=== PATIENT | female | born 1935 | race Caucasian/White ===

== ENCOUNTER 2016-11-17 18:35 | Emergency (ER) | payer MEDICARE, OTHER ==
--- NOTE | 2016-11-17 22:43 | ER Document Report ---
ED Fall - General Chief Complaint: Fall Stated Complaint: FALL,LEFT HIP AND RIGHT ELBOW PAIN Mode of Arrival: Wheelchair Information source: Patient, Relative Notes: Patient is an 81-year-old female who presents to the ER today post fall that happened prior to arrival while she was trying to put firewood in the fireplace. Patient is very independent and states that she just slipped and fell. She denies dizziness, lightheadedness, hitting her head, loss of consciousness. She is complaining of right elbow and left hip pain. She denies any numbness or tingling. She is on blood thinners. TRAVEL OUTSIDE OF THE [place] IN LAST 30 DAYS: No - Related data Allergies/Adverse Reactions: strawberry [[place]] Allergy (Unknown, Verified 07/03/16 01:57) Past Medical History - General Information source: Patient - Social History Smoking Status: Unknown if Ever Smoked Family History: Arthritis, CAD, CVA, DM, Hyperlipidemia, Hypertension, Malignancy - Past Medical History Cardiac Medical History: Reports: Hx Atrial Fibrillation, Hx Congestive Heart Failure, Hx Heart Attack, Hx Hypercholesterolemia, Hx Hypertension, Hx Pulmonary Embolism Denies: Hx Coronary Artery Disease Pulmonary Medical History: Denies: Hx Asthma, Hx Bronchitis, Hx COPD, Hx Pneumonia Neurological Medical History: Denies: Hx Cerebrovascular Accident, Hx Seizures Musculoskeltal Medical History: Reports Hx Arthritis, Reports Hx Musculoskeletal Deformity, Reports Hx Musculoskeletal Trauma Traumatic Medical History: Reports: Hx Fractures - left arm, right hip left tib fib Past Surgical History: Reports: Hx Cardiac Catheterization - stents, Hx Cardiac Surgery - defibillator/pacemaker, Hx Coronary Stent, Hx Hysterectomy, Hx Orthopedic Surgery - right hip left tib fib and left arm - Immunizations Hx Diphtheria, Pertussis, Tetanus Vaccination: No Hx Pneumococcal Vaccination: 05/15/11 Review of Systems - Review of Systems Constitutional: No symptoms reported EENT: No symptoms reported Cardiovascular: No symptoms reported Respiratory: No symptoms reported Gastrointestinal: No symptoms reported Genitourinary: No symptoms reported Female Genitourinary: No symptoms reported Musculoskeletal: See HPI Skin: No symptoms reported Hematologic/Lymphatic: No symptoms reported Neurological/Psychological: No symptoms reported Physical Exam - Notes Notes: PHYSICAL EXAMINATION: GENERAL: Well-appearing and in no acute distress. HEAD: Atraumatic, normocephalic. EYES: Pupils equal round and reactive to light, extraocular movements intact, sclera anicteric, conjunctiva are normal. NECK: Normal range of motion, supple without lymphadenopathy LUNGS: CTAB and equal. No wheezes rales or rhonchi. HEART: Regular rate and rhythm without murmurs ABDOMEN: Soft, no tenderness. No guarding, no rebound EXTREMITIES: Tender to right olecranon process, no tenderness to the left hip at all, Normal range of motion, no pitting edema. No cyanosis. NEUROLOGICAL: Cranial nerves grossly intact. Normal sensory/motor exams. PSYCH: Normal mood, normal affect. SKIN: Warm, Dry, normal turgor, ecchymosis noted to right dorsal elbow Course - Re-evaluation Re-evalutation: 11/17/16 22:42 X-rays of the left hip and right elbow negative for any acute pathology. Patient will be discharged home and would like to take her own pain medication when she gets home. Discharge - Discharge Clinical Impression: Left hip pain, Right elbow pain Fall from standing Qualifiers: Encounter type: initial encounter Qualified Code(s): W19.XXXA - Unspecified fall, initial encounter Condition: Stable Disposition: HOME, SELF-CARE Additional Instructions: Please use your walker for stability until you feel better. Return immediately for any new or worsening symptoms. Follow up with primary care provider, call tomorrow to make followup appointment.
[2016-11-17 23:03] VITALS: BP 135/62
== END 2016-11-17 22:58 | disposition home or self-care (01) ==
LOC: ER 18:35
DX: S50.01XA Contusion of right elbow, initial encounter (principal); M25.552 Pain in left hip; M25.521 Pain in right elbow; W01.0XXA Fall on same level from slipping, tripping and stumbling without subsequent striking against object, initial encounter; Y93.89 Activity, other specified; I48.91 Unspecified atrial fibrillation; I25.2 Old myocardial infarction; I10 Essential (primary) hypertension; Z86.711 Personal history of pulmonary embolism; Z79.01 Long term (current) use of anticoagulants; Z91.018 Allergy to other foods; Z95.810 Presence of automatic (implantable) cardiac defibrillator; Z98.61 Coronary angioplasty status
CPT/HCPCS: 99283

== ENCOUNTER 2016-12-08 16:41 | Observation (INO) | payer MEDICARE, OTHER ==
[2016-12-08] MEDS ORDERED: NORMAL SALINE 1000 ML 1,000 ML IV PRN (17:12)
[2016-12-08] MEDS ORDERED: INFLUENZA ADLT QUAD (36MOS+) 2016-17 VAC 0.5 ML SYR IM PRN (17:52)
[2016-12-08 18:09] LABS: HEMATOCRIT 36.7 % (36.0-47.0); HEMOGLOBIN 12.1 g/dL (12.0-15.5); HGB HCT DIFFERENCE -0.4; MEAN CORPUSCULAR HEMOGLOBIN 31.4 pg (27.0-33.4); MEAN CORPUSCULAR HGB CONC 32.9 g/dL (32.0-36.0); MEAN CORPUSCULAR VOLUME 95 fl (80-97); RED BLOOD COUNT 3.85 10^6/uL (3.72-5.28); WHITE BLOOD COUNT 4.2 10^3/uL (4.0-10.5)
[2016-12-08 18:29] LABS: ALANINE AMINOTRANSFERASE 25 U/L (9-52); ALBUMIN 3.6 g/dL (3.5-5.0); ALKALINE PHOSPHATASE 202 U/L (38-126); ANION GAP 11 (5-19); ASPARTATE AMINO TRANSFERASE 23 U/L (14-36); BILIRUBIN,TOTAL 0.6 mg/dL (0.2-1.3); BLOOD UREA NITROGEN 18 mg/dL (7-20); CARBON DIOXIDE 26 mmol/L (22-30); CHLORIDE 104 mmol/L (98-107); GLUCOSE 78 mg/dL (75-110); POTASSIUM 3.6 mmol/L (3.6-5.0); SODIUM 140.9 mmol/L (137-145); TOTAL PROTEIN 6.1 g/dL (6.3-8.2)
[2016-12-08] MEDS ORDERED: DONEPEZIL HCL 5 MG TABLET PO SCH (21:00)
[2016-12-08] MEDS ORDERED: (PENDING PHARMACY ID) (Rosuvastatin Calcium [Crestor 5 Mg Tablet] 5 MG) PO SCH (21:00)
[2016-12-08] MEDS ORDERED: POTASSIUM CHLORIDE 10 MEQ TABLET.SA PO SCH (21:00)
[2016-12-08] MEDS ORDERED: (PENDING PHARMACY ID) (Calcium Carb & Citrate/Vit D3 [Calcium + D3 Er Tablet] 1 EACH) PO SCH (21:00)
[2016-12-08] MEDS ORDERED: ACETAMINOPHEN 325 MG TABLET PO SCH (21:00)
[2016-12-08] MEDS ORDERED: (PENDING PHARMACY ID) (Ferrous Sulfate [Iron] 325 MG) PO SCH (21:00)
[2016-12-08] MEDS ORDERED: ISOSORBIDE MONONITRATE 30 MG TAB.ER.24H PO SCH (21:00)
[2016-12-08] MEDS ORDERED: DONEPEZIL HCL 5 MG TABLET PO ONE (22:00)
[2016-12-08] MEDS ORDERED: POTASSIUM CHLORIDE 10 MEQ TABLET.SA PO ONE (22:00)
[2016-12-08] MEDS ORDERED: CALCIUM CARBONATE 250 MG/VITAMIN D3 125 UNIT TABLET PO ONE (22:00)
[2016-12-08] MEDS ORDERED: ATORVASTATIN CALCIUM 10 MG TABLET PO ONE (22:00)
[2016-12-08] MEDS ORDERED: FERROUS SULFATE 325 MG TABLET PO ONE (22:00)
[2016-12-08] MEDS ORDERED: ISOSORBIDE MONONITRATE 30 MG TAB.ER.24H PO ONE (22:00)
[2016-12-08] MEDS ORDERED: LANSOPRAZOLE 15 MG TAB.RAP.DR PO ONE (22:00)
[2016-12-08] MEDS: ACETAMINOPHEN 325 MG TABLET PO SCH (23:02)
[2016-12-08] MEDS: ISOSORBIDE MONONITRATE 30 MG TAB.ER.24H PO SCH (23:03)
[2016-12-09] MEDS ORDERED: DONEPEZIL HCL 5 MG TABLET PO SCH (10:00)
[2016-12-09] MEDS ORDERED: POTASSIUM CHLORIDE 10 MEQ TABLET.SA PO SCH (10:00)
[2016-12-09] MEDS ORDERED: CALCIUM CARBONATE 250 MG/VITAMIN D3 125 UNIT TABLET PO SCH (10:00)
[2016-12-09] MEDS ORDERED: FERROUS SULFATE 325 MG TABLET PO SCH (10:00)
[2016-12-09] MEDS ORDERED: DIPHENHYDRAMINE HCL 50 MG/ML VIAL ONE (10:19)
[2016-12-09] MEDS ORDERED: NALOXONE HCL INJ/PF 0.4 MG/1 ML SDV ONE (10:19)
[2016-12-09] MEDS ORDERED: ONDANSETRON HCL INJ/PF 4 MG/2 ML SDV ONE (10:19)
[2016-12-09] MEDS ORDERED: PROMETHAZINE HCL INJ 25 MG/1 ML VIAL ONE (10:19)
[2016-12-09] MEDS ORDERED: MIDAZOLAM 2 MG/2 ML INJ ONE (10:20)
[2016-12-09] MEDS ORDERED: GLUCAGON,HUMAN RECOMB 1 MG INJ ONE (10:20)
[2016-12-09] MEDS ORDERED: FENTANYL CITRATE INJ/PF 100 MCG/2 ML AMPUL ONE (10:20)
[2016-12-09] MEDS ORDERED: FLUMAZENIL INJ 0.5 MG/5 ML VIAL IV ONE (10:20)
[2016-12-09] MEDS ORDERED: EPINEPHRINE INJ 1 MG/10 ML DISP.SYRIN ONE (10:20)
[2016-12-09] MEDS: MIDAZOLAM 2 MG/2 ML INJ ONE ×2 (11:16→11:25)
--- NOTE | 2016-12-09 11:33 | Operative Report ---
Operative Report DATE OF SURGERY: 12/09/16 Operative Report: The risks benefits and alternatives of the procedure explained to the patient in detail and informed consent is obtained that GIF Olympus video scope was inserted into the patient's mouth and hypopharynx the esophagus is identified intubated and insufflated the scope was then advanced through the esophagus stomach and duodenum retroflexion maneuver is done the esophagus stomach and first and second portions of the duodenum examined PREOPERATIVE DIAGNOSIS: Melena POSTOPERATIVE DIAGNOSIS: Gastric AVMs status post ablation OPERATION: EGD with ablation, control of hemorrhage SURGEON: TRU MANZANARES ANESTHESIA: Moderate Sedation - 4 mg of Versed TISSUE REMOVED OR ALTERED: None. COMPLICATIONS: None ESTIMATED BLOOD LOSS: none INTRAOPERATIVE FINDINGS: Minimal gastritis. Gastric AVMs that likely the cause of the patient's bleed. Normal esophagus. First and second portions of the duodenum normal PROCEDURE: Patient tolerated the procedure well. No immediate postprocedure complications are noted. Patient sent back to her room in good condition. Monitor H&H Start diet clears, advance as tolerated If stable can be discharged follow-up as outpatient Discuss with family
--- NOTE | 2016-12-09 11:55 | PDOC CONSULTATION ---
Consultation Consult Date: 12/08/16 Attending physician:: TRU MANZANARES Consult reason:: I was called to see patient because of complaints of having melena. not associated with pain. no syncope or chest pain History of Present Illness Admission Date/PCP: 12/08/16 16:41 JOÃO BRAGA, History of Present Illness: VERONA VALDEZ is a 81 year old female patient saw Dr Guerra in the office she had complaints of melena had a bowel movement that was photodocumented . denies any chest pain or shortness of breath patient denies any NSAID use there is no nausea or vomiting there is no bright red blood per rectum was admitted overnight, H/H is stable will need EGD to rule out source of bleeding Patient is currently on anticoagulation, this should be discontinued in light of GI bleeding Past Medical History Cardiac Medical History: Reports: Atrial Fibrillation, Congestive Heart Failure , Myocardial Infarction, Hyperlipidema, Hypertension, Pulmonary Embolism Denies: Coronary Artery Disease, Peripheral Vascular Disease, Heart Murmur Pulmonary Medical History: Denies: Asthma, Bronchitis, Chronic Obstructive Pulmonary Disease (COPD), Pneumonia, Tuberculosis Neurological Medical History: Denies: Seizures Renal/ Medical History: Denies: End Stage Renal Disease Musculoskeltal Medical History: Reports: Arthritis Denies: Fibromyalgia Psychiatric Medical History: Denies: Dementia, Depression Hematology: Denies: Anemia Past Surgical History Past Surgical History: Reports: Cardiac Catheterization - stents, Coronary Stent , Hysterectomy, Orthopedic Surgery - right hip left tib fib and left arm Denies: Amputation, Appendectomy, Section, Cholecystectomy, Coronary Artery Bypass Graft, Gastric Bypass Surgery, Herniorrhaphy, Mastectomy , Pacemaker, Tonsillectomy, Tubal Ligation Social History Smoking Status: Never Smoker Frequency of Alcohol Use: None Hx Recreational Drug Use: No Drugs: None Hx Prescription Drug Abuse: No - Advance Directive Resuscitation Status: Full Code Family History Family History: Arthritis, CAD, CVA, DM, Hyperlipidemia, Hypertension, Malignancy Parental Family History Reviewed: Yes Children Family History Reviewed: Unknown Sibling(s) Family History Reviewed.: Unknown Medication/Allergy Home Medications: Isosorbide Mononitrate [Imdur] 30 mg PO DAILY 12/25/11 Potassium Chloride [Klor-Con 10 Meq Tablet.sa] 10 meq PO DAILY 12/25/11 Acetaminophen [Tylenol 325 mg Tablet] 500 mg PO BID 09/23/13 Omeprazole 20 mg PO QPM 09/23/13 Donepezil HCl [Aricept 5 mg Tablet] 5 mg PO DAILY #90 tab 01/14/16 Apixaban [Eliquis 2.5 mg Tablet] 2.5 mg PO BID 01/23/16 Ferrous Sulfate [Iron] 325 mg PO DAILY 02/08/16 Nitroglycerin 0.4 mg SL Q5MP PRN 02/08/16 Metoprolol Succinate [Toprol Xl] 50 mg PO BID #60 02/09/16 Calcium Carb & Citrate/Vit D3 [Calcium + D3 ER Tablet] 1 each PO BID 07/03/16 Furosemide 40 mg PO DAILY 12/08/16 Rosuvastatin Calcium [Crestor 5 mg Tablet] 5 mg PO QPM 12/08/16 Allergies/Adverse Reactions: strawberry [[place]] Allergy (Unknown, Verified 07/03/16 01:57) Review of Systems Constitutional: ABSENT: fever(s), headache(s), night sweats Eyes: ABSENT: visual disturbances Ears: ABSENT: hearing changes Nose, Mouth, and Throat: ABSENT: mouth pain Respiratory: ABSENT: cough, dyspnea, hemoptysis Gastrointestinal: PRESENT: melena. ABSENT: dysphagia, hematemesis, nausea, vomiting Genitourinary: ABSENT: dysuria, hematuria Musculoskeletal: ABSENT: joint swelling Integumentary: ABSENT: lesions, pruritus Neurological: PRESENT: weakness. ABSENT: confusion, paresthesias, syncope, vertigo Endocrine: ABSENT: polydipsia, polyphagia, polyuria Hematologic/Lymphatic: ABSENT: easy bruising Physical Exam Vital Signs: Temp Pulse Resp BP Pulse Ox 97.8 F 60 11 L 186/60 H 96 12/09/16 09:19 12/09/16 11:05 12/09/16 11:05 12/09/16 11:05 12/09/16 11:05 Intake & Output 12/08/16 12/09/16 12/10/16 06:59 06:59 06:59 Intake Total 600 100 Output Total 100 Balance 500 100 Weight 43.7 kg General appearance: PRESENT: no acute distress Head exam: PRESENT: atraumatic, normocephalic Eye exam: PRESENT: EOMI, PERRLA. ABSENT: nystagmus, periorbital swelling, scleral icterus Mouth exam: PRESENT: moist Neck exam: ABSENT: meningismus, tenderness, thyromegaly Respiratory exam: PRESENT: clear to auscultation kit, symmetrical. ABSENT: tachypnea, wheezes Cardiovascular exam: PRESENT: RRR, +S1, +S2 GI/Abdominal exam: PRESENT: normal bowel sounds, soft. ABSENT: Slater's sign, rebound, rigid, tenderness Extremities exam: ABSENT: joint swelling Musculoskeletal exam: PRESENT: full ROM Neurological exam: PRESENT: oriented to time, oriented to situation, CN II-XII grossly intact Psychiatric exam: PRESENT: appropriate affect Skin exam: PRESENT: normal color. ABSENT: mottled, petechiae, urticaria, vesicles Results Laboratory Results: 12/08/16 18:00 12/08/16 18:00 12/08/16 12/08/16 18:00 18:00 WBC 4.2 RBC 3.85 Hgb 12.1 Hct 36.7 MCV 95 MCH 31.4 MCHC 32.9 RDW 13.0 Plt Count 149 L Sodium 140.9 Potassium 3.6 Chloride 104 Carbon Dioxide 26 Anion Gap 11 BUN 18 Creatinine 0.90 Est GFR ( Amer) > 60 Est GFR (Non-Af Amer) > 60 Glucose 78 Calcium 9.0 Total Bilirubin 0.6 AST 23 ALT 25 Alkaline Phosphatase 202 H Total Protein 6.1 L Albumin 3.6 Assessment & Plan - Diagnosis (1) GI bleed Plan: Will need EGD ? possible source will need to stop Apixaban for now due to GI bleeding check H/H transfuse as necessary Risks, benefits and alternatives are discussed with the patient in detail further recommendations to follow start PPI for now - Time Time Spent: 50 to 70 Minutes
[2016-12-09] MEDS: ISOSORBIDE MONONITRATE 30 MG TAB.ER.24H PO SCH (12:49)
[2016-12-09] MEDS: ACETAMINOPHEN 325 MG TABLET PO SCH (12:50)
--- NOTE | 2016-12-09 15:20 | PDOC H&P ---
History of Present Illness Admission Date/PCP: 12/08/16 16:41 RUBIORAMIRO ROCKNORMAANNMARIE, History of Present Illness: Patient 81-year-old female, she was brought to the office by her daughter because of passage of black tarry stool that suggest upper GI bleed, she was admitted directly from the office to the hospital for observation and management. The hemogram was normal, there was no need for blood transfusion. She was seen by Dr. Bhardwaj GI physician and she had EGD done and it showed gastric AVMs and this was ablated. The AVM is thought to be the source of the GI bleed. Past Medical History Cardiac Medical History: Reports: Atrial Fibrillation, Congestive Heart Failure , Myocardial Infarction, Hyperlipidema, Hypertension, Pulmonary Embolism Musculoskeltal Medical History: Reports: Arthritis Past Surgical History Past Surgical History: Reports: Cardiac Catheterization - stents, Coronary Stent , Hysterectomy, Orthopedic Surgery - right hip left tib fib and left arm Social History Information Source: Patient Smoking Status: Never Smoker Frequency of Alcohol Use: None Hx Recreational Drug Use: No Drugs: None Hx Prescription Drug Abuse: No - Advance Directive Resuscitation Status: Full Code Family History Family History: Arthritis, CAD, CVA, DM, Hyperlipidemia, Hypertension, Malignancy Parental Family History Reviewed: Yes Children Family History Reviewed: Yes Sibling(s) Family History Reviewed.: Yes Medication/Allergy Home Medications: RX: Isosorbide Mononitrate [Imdur] 30 mg PO DAILY 12/25/11 RX: Potassium Chloride [Klor-Con 10 Meq Tablet.sa] 10 meq PO DAILY 12/25/11 RX: Acetaminophen [Tylenol 325 mg Tablet] 500 mg PO BID 09/23/13 RX: Omeprazole 20 mg PO QPM 09/23/13 RX: Donepezil HCl [Aricept 5 mg Tablet] 5 mg PO DAILY #90 tab 01/14/16 RX: Apixaban [Eliquis 2.5 mg Tablet] 2.5 mg PO BID 01/23/16 RX: Ferrous Sulfate [Iron] 325 mg PO DAILY 02/08/16 RX: Nitroglycerin 0.4 mg SL Q5MP PRN 02/08/16 RX: Metoprolol Succinate [Toprol Xl] 50 mg PO BID #60 02/09/16 RX: Calcium Carb & Citrate/Vit D3 [Calcium + D3 ER Tablet] 1 each PO BID RX: Furosemide 40 mg PO DAILY 12/08/16 RX: Rosuvastatin Calcium [Crestor 5 mg Tablet] 5 mg PO QPM 12/08/16 Allergies/Adverse Reactions: strawberry [[place]] Allergy (Unknown, Verified 07/03/16 01:57) Review of Systems Constitutional: ABSENT: chills, fever(s), headache(s), weight gain, weight loss Eyes: ABSENT: visual disturbances Ears: ABSENT: hearing changes Cardiovascular: ABSENT: chest pain, dyspnea on exertion, edema, orthropnea, palpitations Respiratory: ABSENT: cough, hemoptysis Gastrointestinal: PRESENT: melena Genitourinary: ABSENT: dysuria, hematuria Musculoskeletal: ABSENT: joint swelling Integumentary: ABSENT: rash, wounds Neurological: ABSENT: abnormal gait, abnormal speech, confusion, dizziness, focal weakness, syncope Psychiatric: ABSENT: anxiety, depression, homidical ideation, suicidal ideation Endocrine: ABSENT: cold intolerance, heat intolerance, menstrual abnormalities, polydipsia, polyuria Hematologic/Lymphatic: ABSENT: easy bleeding, easy bruising, lymphadenopathy Physical Exam Vital Signs: Temp Pulse Resp BP Pulse Ox 98.0 F 60 16 148/64 H 96 12/09/16 14:39 12/09/16 14:39 12/09/16 14:39 12/09/16 14:39 12/09/16 14:39 Intake & Output 12/08/16 12/09/16 12/10/16 06:59 06:59 06:59 Intake Total 600 100 Output Total 100 Balance 500 100 Weight 43.7 kg General appearance: PRESENT: no acute distress Head exam: PRESENT: atraumatic, normocephalic Eye exam: PRESENT: conjunctiva pink, EOMI, PERRLA Ear exam: PRESENT: normal external ear exam Mouth exam: PRESENT: moist, tongue midline Neck exam: PRESENT: full ROM Respiratory exam: PRESENT: clear to auscultation kit Cardiovascular exam: PRESENT: RRR, +S1, +S2 Vascular exam: PRESENT: normal capillary refill GI/Abdominal exam: PRESENT: normal bowel sounds, soft Rectal exam: PRESENT: deferred Neurological exam: PRESENT: alert, awake, oriented to person, oriented to place , oriented to time, oriented to situation, CN II-XII grossly intact Psychiatric exam: PRESENT: appropriate affect, normal mood Skin exam: PRESENT: dry, intact, warm Results Laboratory Results: 12/08/16 18:00 12/08/16 18:00 12/08/16 12/08/16 18:00 18:00 WBC 4.2 RBC 3.85 Hgb 12.1 Hct 36.7 MCV 95 MCH 31.4 MCHC 32.9 RDW 13.0 Plt Count 149 L Sodium 140.9 Potassium 3.6 Chloride 104 Carbon Dioxide 26 Anion Gap 11 BUN 18 Creatinine 0.90 Est GFR ( Amer) > 60 Est GFR (Non-Af Amer) > 60 Glucose 78 Calcium 9.0 Total Bilirubin 0.6 AST 23 ALT 25 Alkaline Phosphatase 202 H Total Protein 6.1 L Albumin 3.6 Assessment & Plan - Diagnosis (1) Upper GI bleed Is this a current diagnosis for this admission?: YesPlan: Patient was admitted because of upper GI bleed. She did not required blood transfusion, she was seen by GI and she had EGD done, she was found to have gastric AVMs with hemorrhage and this was ablated. (2) AVM (arteriovenous malformation) of stomach, acquired with hemorrhage Is this a current diagnosis for this admission?: Yes
--- NOTE | 2016-12-09 15:22 | PDOC DISCHARGE SUMMARY ---
General - Admit/Disc Date/PCP Admission Date/Primary Care Provider: 12/08/16 16:41 JOÃO BRAGA, Discharge Date: 12/09/16 - Discharge Diagnosis (1) Upper GI bleed Is this a current diagnosis for this admission?: Yes (2) AVM (arteriovenous malformation) of stomach, acquired with hemorrhage Is this a current diagnosis for this admission?: Yes - Additional Information Resuscitation Status: Full Code Discharge Diet: As Tolerated Discharge Activity: Activity As Tolerated Home Medications: Isosorbide Mononitrate [Imdur] 30 mg PO DAILY 12/25/11 Potassium Chloride [Klor-Con 10 Meq Tablet.sa] 10 meq PO DAILY 12/25/11 Acetaminophen [Tylenol 325 mg Tablet] 500 mg PO BID 09/23/13 Omeprazole 20 mg PO QPM 09/23/13 Donepezil HCl [Aricept 5 mg Tablet] 5 mg PO DAILY #90 tab 01/14/16 Apixaban [Eliquis 2.5 mg Tablet] 2.5 mg PO BID 01/23/16 Ferrous Sulfate [Iron] 325 mg PO DAILY 02/08/16 Nitroglycerin 0.4 mg SL Q5MP PRN 02/08/16 Metoprolol Succinate [Toprol Xl] 50 mg PO BID #60 02/09/16 Calcium Carb & Citrate/Vit D3 [Calcium + D3 ER Tablet] 1 each PO BID 07/03/16 Furosemide 40 mg PO DAILY 12/08/16 Rosuvastatin Calcium [Crestor 5 mg Tablet] 5 mg PO QPM 12/08/16 History of Present Illness History of Present Illness: Patient 81-year-old female, she was brought to the office by her daughter because of passage of black tarry stool that suggest upper GI bleed, she was admitted directly from the office to the hospital for observation and management. The hemogram was normal, there was no need for blood transfusion. She was seen by Dr. Bhardwaj GI physician and she had EGD done and it showed gastric AVMs and this was ablated. The AVM is thought to be the source of the GI bleed. Hospital Course Hospital Course: Patient was admitted because of upper GI bleed, she presented with melanotic stool. She was seen by GI, Dr. Bhardwaj and she had he EGD done and it showed gastric AVM with hemorrhage. This was ablated. She did not require blood transfusion Physical Exam Vital Signs: Temp Pulse Resp BP Pulse Ox 98.0 F 60 16 148/64 H 96 12/09/16 14:39 12/09/16 14:39 12/09/16 14:39 12/09/16 14:39 12/09/16 14:39 Intake & Output 12/08/16 12/09/16 12/10/16 06:59 06:59 06:59 Intake Total 600 100 Output Total 100 Balance 500 100 Weight 43.7 kg General appearance: PRESENT: no acute distress, well-developed, well-nourished Head exam: PRESENT: atraumatic, normocephalic Eye exam: PRESENT: conjunctiva pink, EOMI, PERRLA Neck exam: PRESENT: full ROM Respiratory exam: PRESENT: clear to auscultation kit Cardiovascular exam: PRESENT: RRR, +S1, +S2 Pulses: PRESENT: normal dorsalis pedis pul, +2 pedal pulses bilateral Vascular exam: PRESENT: normal capillary refill GI/Abdominal exam: PRESENT: normal bowel sounds, soft Rectal exam: PRESENT: deferred Neurological exam: PRESENT: alert, awake, oriented to person, oriented to place , oriented to time, oriented to situation, CN II-XII grossly intact Psychiatric exam: PRESENT: appropriate affect, normal mood Skin exam: PRESENT: dry, intact, warm Results Laboratory Results: 12/08/16 18:00 12/08/16 18:00 12/08/16 12/08/16 18:00 18:00 WBC 4.2 RBC 3.85 Hgb 12.1 Hct 36.7 MCV 95 MCH 31.4 MCHC 32.9 RDW 13.0 Plt Count 149 L Sodium 140.9 Potassium 3.6 Chloride 104 Carbon Dioxide 26 Anion Gap 11 BUN 18 Creatinine 0.90 Est GFR ( Amer) > 60 Est GFR (Non-Af Amer) > 60 Glucose 78 Calcium 9.0 Total Bilirubin 0.6 AST 23 ALT 25 Alkaline Phosphatase 202 H Total Protein 6.1 L Albumin 3.6
[2016-12-09 16:16] VITALS: BP 130/49
[2016-12-09] MEDS ORDERED: ATORVASTATIN CALCIUM 10 MG TABLET PO SCH (18:00)
[2016-12-09] MEDS ORDERED: LANSOPRAZOLE 15 MG TAB.RAP.DR PO SCH (18:00)
== END 2016-12-09 16:45 | disposition home or self-care (01) ==
LOC: 4N 16:41 → INTOOBSV 16:41 → 4N 19:59
PROVIDERS: ADMIT Internal Medicine; ATTEND Internal Medicine
PROC: 3E0234Z Introduction of Serum, Toxoid and Vaccine into Muscle, Percutaneous Approach (ICD-10-PCS; 2016-12-09)
PROC: 0W3P8ZZ Control Bleeding in Gastrointestinal Tract, Via Natural or Artificial Opening Endoscopic (ICD-10-PCS; principal; 2016-12-09 10:30)
DX: Q27.33 Arteriovenous malformation of digestive system vessel (principal); K92.2 Gastrointestinal hemorrhage, unspecified; Z23 Encounter for immunization; I48.91 Unspecified atrial fibrillation; I50.9 Heart failure, unspecified; I25.2 Old myocardial infarction; E78.5 Hyperlipidemia, unspecified; I10 Essential (primary) hypertension; Z86.711 Personal history of pulmonary embolism; Z79.01 Long term (current) use of anticoagulants; Z95.5 Presence of coronary angioplasty implant and graft
CPT/HCPCS: 90471; 43255; 36415; 85027; 80076; 80048; 90686; G0378 ×2; G0379; A9270 ×9; J2250; J7030; J0171; J1200; J1610; J2310; J2405; J2550; J3010; J3490

== ENCOUNTER → 2016-12-30 | Outpatient (CLI) | payer MEDICARE, OTHER ==
[2016-12-30 11:11] LABS: ABSOLUTE BASOPHILS # (AUTO) 0.1 10^3/uL (0.0-0.2); ABSOLUTE EOSINOPHILS # (AUTO) 0.1 10^3/uL (0.0-0.6); ABSOLUTE LYMPHOCYTES (AUTO) 1.6 10^3/uL (0.5-4.7); ABSOLUTE MONOCYTES (AUTO) 0.3 10^3/uL (0.1-1.4); ABSOLUTE NEUT (AUTO) 1.9 10^3/uL (1.7-8.2); EOSINOPHILS % (AUTO) 2.9 % (0-6); HEMATOCRIT 37.3 % (36.0-47.0); HEMOGLOBIN 12.4 g/dL (12.0-15.5); HGB HCT DIFFERENCE -0.1; LYMPHOCYTES % (AUTO) 41.2 % (13-45); MEAN CORPUSCULAR HGB CONC 33.3 g/dL (32.0-36.0); MEAN CORPUSCULAR VOLUME 96 fl (80-97); MONOCYTES % (AUTO) 6.4 % (3-13); RED BLOOD COUNT 3.89 10^6/uL (3.72-5.28); RED CELL DISTRIBUTION WIDTH 13.3 % (11.5-14.0); SEGMENTED NEUTROPHILS % (AUTO) 47.5 % (42-78); WHITE BLOOD COUNT 3.9 10^3/uL (4.0-10.5)
== END ==
LOC: OD 09:36
PROVIDERS: ATTEND Internal Medicine
DX: K31.811 Angiodysplasia of stomach and duodenum with bleeding (principal)
CPT/HCPCS: 36415; 85025

== ENCOUNTER → 2017-02-03 | Outpatient (CLI) | payer MEDICARE, OTHER ==
[2017-02-03 11:43] LABS: ABSOLUTE EOSINOPHILS # (AUTO) 0.1 10^3/uL (0.0-0.6); ABSOLUTE LYMPHOCYTES (AUTO) 1.6 10^3/uL (0.5-4.7); ABSOLUTE MONOCYTES (AUTO) 0.3 10^3/uL (0.1-1.4); ABSOLUTE NEUT (AUTO) 2.6 10^3/uL (1.7-8.2); BASOPHILS % (AUTO) 1.1 % (0-2); EOSINOPHILS % (AUTO) 2.2 % (0-6); HEMATOCRIT 38.1 % (36.0-47.0); HGB HCT DIFFERENCE 0.9; LYMPHOCYTES % (AUTO) 34.8 % (13-45); MEAN CORPUSCULAR HEMOGLOBIN 32.6 pg (27.0-33.4); MEAN CORPUSCULAR HGB CONC 34.2 g/dL (32.0-36.0); MEAN CORPUSCULAR VOLUME 95 fl (80-97); MONOCYTES % (AUTO) 5.7 % (3-13); RED CELL DISTRIBUTION WIDTH 12.8 % (11.5-14.0); SEGMENTED NEUTROPHILS % (AUTO) 56.2 % (42-78); WHITE BLOOD COUNT 4.5 10^3/uL (4.0-10.5)
[2017-02-03 12:24] LABS: RED BLOOD COUNT 3.99 10^6/uL (3.72-5.28)
== END ==
LOC: OD 10:51
PROVIDERS: ATTEND Internal Medicine
DX: K31.811 Angiodysplasia of stomach and duodenum with bleeding (principal)
CPT/HCPCS: 36415; 85025

== ENCOUNTER → 2017-03-02 | Outpatient (CLI) | payer MEDICARE, OTHER ==
[2017-03-03 10:39] LABS: ABSOLUTE EOSINOPHILS # (AUTO) 0.1 10^3/uL (0.0-0.6); ABSOLUTE LYMPHOCYTES (AUTO) 1.6 10^3/uL (0.5-4.7); ABSOLUTE MONOCYTES (AUTO) 0.3 10^3/uL (0.1-1.4); ABSOLUTE NEUT (AUTO) 2.1 10^3/uL (1.7-8.2); BASOPHILS % (AUTO) 0.3 % (0-2); EOSINOPHILS % (AUTO) 1.8 % (0-6); HEMATOCRIT 37.8 % (36.0-47.0); HEMOGLOBIN 12.9 g/dL (12.0-15.5); HGB HCT DIFFERENCE 0.9; LYMPHOCYTES % (AUTO) 39.7 % (13-45); MEAN CORPUSCULAR HEMOGLOBIN 32.5 pg (27.0-33.4); MEAN CORPUSCULAR HGB CONC 34.2 g/dL (32.0-36.0); MEAN CORPUSCULAR VOLUME 95 fl (80-97); RED BLOOD COUNT 3.98 10^6/uL (3.72-5.28); RED CELL DISTRIBUTION WIDTH 12.7 % (11.5-14.0); SEGMENTED NEUTROPHILS % (AUTO) 51.2 % (42-78); WHITE BLOOD COUNT 4.2 10^3/uL (4.0-10.5)
[2017-03-03 11:23] LABS: PLATELET ESTIMATE 109 10^3/uL (150-450)
[2017-03-03 11:24] LABS: OVALOCYTES 1+; POIKILOCYTOSIS 1+
[2017-03-03 11:25] LABS: POLYCHROMASIA SLIGHT; SCHISTOCYTES SLIGHT
== END ==
LOC: OD 09:36
PROVIDERS: ATTEND Internal Medicine
DX: K31.811 Angiodysplasia of stomach and duodenum with bleeding (principal)
CPT/HCPCS: 36415; 85025

== ENCOUNTER → 2017-03-30 | Outpatient (CLI) | payer MEDICARE, OTHER ==
[2017-03-30 10:53] LABS: ABSOLUTE BASOPHILS # (AUTO) 0.1 10^3/uL (0.0-0.2); ABSOLUTE EOSINOPHILS # (AUTO) 0.1 10^3/uL (0.0-0.6); ABSOLUTE LYMPHOCYTES (AUTO) 1.6 10^3/uL (0.5-4.7); ABSOLUTE MONOCYTES (AUTO) 0.3 10^3/uL (0.1-1.4); ABSOLUTE NEUT (AUTO) 2.8 10^3/uL (1.7-8.2); BASOPHILS % (AUTO) 1.4 % (0-2); EOSINOPHILS % (AUTO) 1.8 % (0-6); HEMOGLOBIN 12.5 g/dL (12.0-15.5); HGB HCT DIFFERENCE -0.5; LYMPHOCYTES % (AUTO) 33.6 % (13-45); MEAN CORPUSCULAR HEMOGLOBIN 31.6 pg (27.0-33.4); MEAN CORPUSCULAR HGB CONC 32.9 g/dL (32.0-36.0); MEAN CORPUSCULAR VOLUME 96 fl (80-97); RED BLOOD COUNT 3.96 10^6/uL (3.72-5.28); RED CELL DISTRIBUTION WIDTH 13.3 % (11.5-14.0); SEGMENTED NEUTROPHILS % (AUTO) 57.2 % (42-78); WHITE BLOOD COUNT 4.8 10^3/uL (4.0-10.5)
== END ==
LOC: OD 10:03
PROVIDERS: ATTEND Internal Medicine
DX: K31.811 Angiodysplasia of stomach and duodenum with bleeding (principal)
CPT/HCPCS: 36415; 85025

== ENCOUNTER → 2017-04-27 | Outpatient (CLI) | payer MEDICARE, OTHER ==
[2017-04-27 12:25] LABS: ABSOLUTE EOSINOPHILS # (AUTO) 0.1 10^3/uL (0.0-0.6); ABSOLUTE MONOCYTES (AUTO) 0.3 10^3/uL (0.1-1.4); ABSOLUTE NEUT (AUTO) 3.1 10^3/uL (1.7-8.2); BASOPHILS % (AUTO) 0.8 % (0-2); EOSINOPHILS % (AUTO) 1.6 % (0-6); HEMATOCRIT 42.4 % (36.0-47.0); HEMOGLOBIN 13.6 g/dL (12.0-15.5); HGB HCT DIFFERENCE -1.6; LYMPHOCYTES % (AUTO) 35.9 % (13-45); MEAN CORPUSCULAR HEMOGLOBIN 31.3 pg (27.0-33.4); MEAN CORPUSCULAR HGB CONC 32.1 g/dL (32.0-36.0); MEAN CORPUSCULAR VOLUME 98 fl (80-97); RED BLOOD COUNT 4.35 10^6/uL (3.72-5.28); RED CELL DISTRIBUTION WIDTH 13.1 % (11.5-14.0); SEGMENTED NEUTROPHILS % (AUTO) 55.7 % (42-78); WHITE BLOOD COUNT 5.5 10^3/uL (4.0-10.5)
== END ==
LOC: OD 11:25
PROVIDERS: ATTEND Internal Medicine
DX: K31.811 Angiodysplasia of stomach and duodenum with bleeding (principal)
CPT/HCPCS: 36415; 85025

== ENCOUNTER → 2017-07-06 | Outpatient (CLI) | payer MEDICARE, OTHER ==
[2017-07-06 10:08] LABS: ABSOLUTE EOSINOPHILS # (AUTO) 0.1 10^3/uL (0.0-0.6); ABSOLUTE LYMPHOCYTES (AUTO) 1.8 10^3/uL (0.5-4.7); ABSOLUTE MONOCYTES (AUTO) 0.4 10^3/uL (0.1-1.4); ABSOLUTE NEUT (AUTO) 2.2 10^3/uL (1.7-8.2); BASOPHILS % (AUTO) 0.1 % (0-2); EOSINOPHILS % (AUTO) 3.3 % (0-6); HEMATOCRIT 35.7 % (36.0-47.0); HGB HCT DIFFERENCE 0.3; LYMPHOCYTES % (AUTO) 39.4 % (13-45); MEAN CORPUSCULAR HEMOGLOBIN 32.2 pg (27.0-33.4); MEAN CORPUSCULAR HGB CONC 33.5 g/dL (32.0-36.0); MEAN CORPUSCULAR VOLUME 96 fl (80-97); RED BLOOD COUNT 3.71 10^6/uL (3.72-5.28); RED CELL DISTRIBUTION WIDTH 13.3 % (11.5-14.0); SEGMENTED NEUTROPHILS % (AUTO) 49.2 % (42-78); WHITE BLOOD COUNT 4.5 10^3/uL (4.0-10.5)
== END ==
LOC: OD 09:18
PROVIDERS: ATTEND Internal Medicine
DX: K31.811 Angiodysplasia of stomach and duodenum with bleeding (principal)
CPT/HCPCS: 36415; 85025

== ENCOUNTER 2017-08-13 12:47 | Emergency (ER) | payer MEDICARE, OTHER ==
--- NOTE | 2017-08-13 13:46 | RADIOLOGY REPORT (SQ) ---
EXAM DESCRIPTION: CHEST PA/LAT COMPLETED DATE/TIME: 08/13/2017 1:27 pm REASON FOR STUDY: post heimleich COMPARISON: June 2016 EXAM PARAMETERS: NUMBER OF VIEWS: two views TECHNIQUE: Digital Frontal and Lateral radiographic views of the chest acquired. RADIATION DOSE: NA LIMITATIONS: none FINDINGS: LUNGS AND PLEURA: No opacities, masses or pneumothorax. No pleural effusion. MEDIASTINUM AND HILAR STRUCTURES: No masses or contour abnormalities. HEART AND VASCULAR STRUCTURES: Cardiac silhouette is enlarged and unchanged in configuration. BONES: No acute findings. HARDWARE: AICD device is unchanged in position. OTHER: No other significant finding. IMPRESSION: No significant interval change. No acute findings. Other findings as noted above TECHNICAL DOCUMENTATION: JOB ID: [id number] [employer]- All Rights Reserved
--- NOTE | 2017-08-13 13:48 | RADIOLOGY REPORT (SQ) ---
EXAM DESCRIPTION: ANKLE LEFT COMPLETE COMPLETED DATE/TIME: 08/13/2017 1:27 pm REASON FOR STUDY: ankle injury COMPARISON: May 2013 NUMBER OF VIEWS: Three views. TECHNIQUE: AP, lateral, and oblique radiographic images acquired of the left ankle. LIMITATIONS: Bony structures are diffusely osteopenic which limits evaluation for occult fractures. FINDINGS: MINERALIZATION: Osteopenia BONES: No acute fracture or dislocation. An old healed fracture of the distal fibula is identified. JOINTS: No effusions. SOFT TISSUES: Soft tissue swelling is identified. OTHER: Orthopedic hardware is identified with an orthopedic plate transfixed by multiple orthopedic s crews at the level of the distal tibia. IMPRESSION: Limited study as noted above. No acute fracture or dislocation. Other findings as note d above TECHNICAL DOCUMENTATION: JOB ID: [id number] [employer]- All Rights Reserved
--- NOTE | 2017-08-13 13:55 | ER Document Report ---
ED General - General Chief Complaint: Choked / Choking Stated Complaint: CHOKING Time Seen by Provider: 08/13/17 13:00 Mode of Arrival: Ambulatory Information source: Patient, Relative Notes: 81 yr old female was at [facility] when she began choking. Pt had heimleich performed. Imemdiately food came up and patient felt better pt was also supposed to be seen for xray of the left ankle outpatient for previous sprain TRAVEL OUTSIDE OF THE [place] IN LAST 30 DAYS: No - HPI Onset: Just prior to arrival Onset/Duration: Sudden Quality of pain: Achy Severity: Mild Pain Level: 1 Associated symptoms: Other Exacerbated by: Food Relieved by: Denies Similar symptoms previously: No Recently seen / treated by doctor: Yes - was seen at [facility] - Related Data Allergies/Adverse Reactions: strawberry [[place]] Allergy (Unknown, Verified 07/03/16 01:57) Past Medical History - Social History Smoking Status: Former Smoker Cigarette use (# per day): No Chew tobacco use (# tins/day): No Smoking Education Provided: No Frequency of alcohol use: None Drug Abuse: None Family History: Arthritis, CAD, CVA, DM, Hyperlipidemia, Hypertension, Malignancy - Past Medical History Cardiac Medical History: Reports: Hx Atrial Fibrillation, Hx Congestive Heart Failure, Hx Heart Attack, Hx Hypercholesterolemia, Hx Hypertension, Hx Pulmonary Embolism Denies: Hx Coronary Artery Disease, Hx Peripheral Vascular Disease, Hx Heart Murmur Pulmonary Medical History: Denies: Hx Asthma, Hx Bronchitis, Hx COPD, Hx Pneumonia, Hx Tuberculosis Neurological Medical History: Denies: Hx Cerebrovascular Accident, Hx Seizures Renal/ Medical History: Denies: Hx End Stage Renal Disease Musculoskeltal Medical History: Reports Hx Arthritis, Denies Hx Fibromyalgia, Reports Hx Musculoskeletal Deformity, Reports Hx Musculoskeletal Trauma Psychiatric Medical History: Denies: Hx Dementia, Hx Depression Traumatic Medical History: Reports: Hx Fractures - left arm, right hip left tib fib Past Surgical History: Reports: Hx Cardiac Catheterization - stents, Hx Cardiac Surgery - defibillator/pacemaker, Hx Coronary Stent, Hx Hysterectomy, Hx Orthopedic Surgery - right hip left tib fib and left arm. Denies: Hx Appendectomy, Hx Section, Hx Cholecystectomy, Hx Coronary Artery Bypass Graft, Hx Gastric Bypass Surgery, Hx Herniorrhaphy, Hx Mastectomy, Hx Pacemaker, Hx Tonsillectomy, Hx Tubal Ligation - Immunizations Hx Diphtheria, Pertussis, Tetanus Vaccination: No Hx Pneumococcal Vaccination: 05/15/11 Review of Systems - Review of Systems Notes: REVIEW OF SYSTEMS: CONSTITUTIONAL : Denies fever, chills, or sweats. Denies recent illness. EENT: aspiration CARDIOVASCULAR: Denies chest pain. Denies palpitations or racing or irregular heart beat. Denies ankle edema. RESPIRATORY: Denies cough, cold, or chest congestion. Denies shortness of breath, difficulty breathing, or wheezing. GASTROINTESTINAL: Denies abdominal pain or distention. Denies nausea, vomiting , or diarrhea. Denies blood in vomitus, stools, or per rectum. Denies black, tarry stools. Denies constipation. GENITOURINARY: Denies difficulty urinating, painful urination, burning, frequency, blood in urine, or discharge. FEMALE GENITOURINARY: Denies vaginal bleeding, heavy or abnormal periods, irregular periods. Denies vaginal discharge or odor. MUSCULOSKELETAL: left nakle pain SKIN: Denies rash, lesions or sores. HEMATOLOGIC : Denies easy bruising or bleeding. LYMPHATIC: Denies swollen, enlarged glands. NEUROLOGICAL: Denies confusion or altered mental status. Denies passing out or loss of consciousness. Denies dizziness or lightheadedness. Denies headache. Denies weakness or paralysis or loss of use of either side. Denies problems with gait or speech. Denies sensory loss, numbness, or tingling. Denies seizures. PSYCHIATRIC: Denies anxiety or stress. Denies depression, suicidal ideation, or homicidal ideation. ALL OTHER SYSTEMS REVIEWED AND NEGATIVE. PHYSICAL EXAMINATION: GENERAL: Well-appearing, well-nourished and in no acute distress. HEAD: Atraumatic, normocephalic. EYES: Pupils equal round and reactive to light, extraocular movements intact, conjunctiva are normal. ENT: Nares patent, oropharynx clear without exudates. Moist mucous membranes. NECK: Normal range of motion, supple without lymphadenopathy LUNGS: Breath sounds clear to auscultation bilaterally and equal. No wheezes rales or rhonchi. HEART: Regular rate and rhythm without murmurs ABDOMEN: Soft, nontender, nondistended abdomen. No guarding, no rebound. No masses appreciated. Female : deferred Musculoskeletal: Normal range of motion, no pitting or edema. No cyanosis. NEUROLOGICAL: Cranial nerves grossly intact. Normal speech, normal gait. Normal sensory, motor exams PSYCH: Normal mood, normal affect. SKIN: Warm, Dry, normal turgor, no rashes or lesions noted. Dictation was performed using [employer] voice recognition software Physical Exam - Vital signs Vitals: Temp Pulse Resp BP Pulse Ox 98.2 F 71 18 145/60 H 95 08/13/17 12:54 08/13/17 12:54 08/13/17 12:54 08/13/17 12:54 08/13/17 12:54 Course - Re-evaluation Re-evalutation: 08/13/17 13:55 imaging noted no acute abnormalkty pt has not been coughing and has no complaints at all will dc home with close return precautions for aspiration pneumonia pts pcp notified After performing a Medical Screening Examination, I estimate there is LOW risk for ACUTE CORONARY SYNDROME, RESPIRATORY FAILURE, SEPSIS OR MENINGITIS, thus I consider the discharge disposition reasonable. I have reevaluated this patient multiple times and no significant life threatening changes are noted. The patient and I have discussed the diagnosis and risks, and we agree with discharging home with close follow-up. We also discussed returning to the Emergency Department immediately if new or worsening symptoms occur. We have discussed the symptoms which are most concerning (e.g., changing or worsening pain, trouble swallowing or breathing, neck stiffness, fever) that necessitate immediate return. - Vital Signs Vital signs: Temp Pulse Resp BP Pulse Ox 98.2 F 71 18 145/60 H 95 08/13/17 12:54 08/13/17 12:54 08/13/17 12:54 08/13/17 12:54 08/13/17 12:54 - Diagnostic Test Radiology reviewed: Image reviewed, Reports reviewed - no acute abnormalities report given to patients daughter Discharge - Discharge Clinical Impression: Aspiration into airway Qualifiers: Encounter type: initial encounter Qualified Code(s): T17.908A - Unspecified foreign body in respiratory tract, part unspecified causing other injury, initial encounter Left ankle pain Qualifiers: Chronicity: acute Qualified Code(s): M25.572 - Pain in left ankle and joints of left foot Condition: Stable Disposition: HOME, SELF-CARE Additional Instructions: Return immediately if there is any sign of infection difficulty breathing or any other concerns
[2017-08-13 14:09] VITALS: BP 159/64
== END 2017-08-13 15:22 | disposition home or self-care (01) ==
LOC: ER 12:47
DX: T17.920A Food in respiratory tract, part unspecified causing asphyxiation, initial encounter (principal); X58.XXXA Exposure to other specified factors, initial encounter; Y93.89 Activity, other specified; Y92.511 Restaurant or cafe as the place of occurrence of the external cause; M25.572 Pain in left ankle and joints of left foot; I10 Essential (primary) hypertension; Z91.018 Allergy to other foods; Z87.891 Personal history of nicotine dependence
CPT/HCPCS: 71020; 99283

== ENCOUNTER → 2017-10-06 | Outpatient (CLI) | payer MEDICARE ==
[2017-10-06 14:56] LABS: ABSOLUTE BASOPHILS # (AUTO) 0.1 10^3/uL (0.0-0.2); ABSOLUTE EOSINOPHILS # (AUTO) 0.1 10^3/uL (0.0-0.6); ABSOLUTE LYMPHOCYTES (AUTO) 2.1 10^3/uL (0.5-4.7); ABSOLUTE MONOCYTES (AUTO) 0.3 10^3/uL (0.1-1.4); ABSOLUTE NEUT (AUTO) 2.3 10^3/uL (1.7-8.2); BASOPHILS % (AUTO) 1.2 % (0-2); EOSINOPHILS % (AUTO) 2.1 % (0-6); HEMATOCRIT 38.6 % (36.0-47.0); HEMOGLOBIN 12.7 g/dL (12.0-15.5); HGB HCT DIFFERENCE -0.5; LYMPHOCYTES % (AUTO) 43.8 % (13-45); MEAN CORPUSCULAR HEMOGLOBIN 30.2 pg (27.0-33.4); MEAN CORPUSCULAR HGB CONC 32.8 g/dL (32.0-36.0); MEAN CORPUSCULAR VOLUME 92 fl (80-97); MONOCYTES % (AUTO) 5.9 % (3-13); RED BLOOD COUNT 4.19 10^6/uL (3.72-5.28); RED CELL DISTRIBUTION WIDTH 13.8 % (11.5-14.0); WHITE BLOOD COUNT 4.8 10^3/uL (4.0-10.5)
[2017-10-06 15:28] LABS: ALANINE AMINOTRANSFERASE 39 U/L (9-52); ALBUMIN 3.5 g/dL (3.5-5.0); ALKALINE PHOSPHATASE 149 U/L (38-126); ANION GAP 12 (5-19); ASPARTATE AMINO TRANSFERASE 27 U/L (14-36); BILIRUBIN,DIRECT 0.5 mg/dL (0.0-0.4); BILIRUBIN,TOTAL 0.7 mg/dL (0.2-1.3); BLOOD UREA NITROGEN 28 mg/dL (7-20); CARBON DIOXIDE 25 mmol/L (22-30); CHLORIDE 105 mmol/L (98-107); CREATININE RESULT 1.18 mg/dL (0.52-1.25); GLUCOSE 68 mg/dL (75-110); POTASSIUM 4.2 mmol/L (3.6-5.0); SODIUM 141.6 mmol/L (137-145); TOTAL PROTEIN 6.5 g/dL (6.3-8.2)
[2017-10-06 15:57] LABS: THYROID STIMULATING HORMONE 0.95 uIU/mL (0.47-4.68)
== END ==
LOC: OD 13:00
PROVIDERS: ATTEND Internal Medicine
DX: I10 Essential (primary) hypertension (principal); R19.7 Diarrhea, unspecified
CPT/HCPCS: 36415; 80053; 84439; 84443; 85025

== ENCOUNTER 2017-10-20 10:49 | Day surgery (SDC) | payer MEDICARE, OTHER ==
[~2017-10-20 10:49] MED LIST: KETOROLAC TROMETHAMINE 0.45% 4 DROP/0.4 ML DROPERETTE OD PRN
[2017-10-20] MEDS: CYCLOPENTOLATE 0.2%/PHENYLEPHRINE 1% OPH SOLN 2 ML OD PRN ×3 (11:12→11:33)
[2017-10-20] MEDS: TETRACAINE HCL 0.5% OPH SOLN 0.6 ML DROPERETTE OD PRN ×3 (11:12→12:00)
[2017-10-20] MEDS: TROPICAMIDE 1% OPH SOLN 3 ML OD PRN ×3 (11:13→11:33)
[2017-10-20] MEDS: BESIFLOXACIN HCL 0.6% OPH SUSP 5 ML BOTTLE OD PRN ×4 (11:14→12:19)
[2017-10-20] MEDS ORDERED: LIDOCAINE 1% INJ-PF (10 MG/ML) 30 ML SDV ONE (11:29)
[2017-10-20] MEDS ORDERED: PHENYLEPHRINE/KETOROLAC 1%-0.3% 4 ML VIAL ONE (11:29)
[2017-10-20] MEDS ORDERED: CHONDR SU A NA/HYALUR INTRAOC KIT (SURGICARE) ONE (11:30)
[2017-10-20] MEDS ORDERED: FENTANYL CITRATE INJ/PF 100 MCG/2 ML AMPUL ONE (11:43)
[2017-10-20] MEDS ORDERED: MIDAZOLAM 2 MG/2 ML INJ ONE (11:43)
[2017-10-20] MEDS: TOBRAMYCIN SULFATE/DEXAMETH OPH OINTMENT 3.5 GM ONE ×2 (12:11→12:19)
== END 2017-10-20 12:57 | disposition home or self-care (01) ==
LOC: SC 10:49
PROVIDERS: ATTEND Ophthalmology
PROC: 08RJ3JZ Replacement of Right Lens with Synthetic Substitute, Percutaneous Approach (ICD-10-PCS; principal; 2017-10-20 12:00)
DX: H25.11 Age-related nuclear cataract, right eye (principal); M19.90 Unspecified osteoarthritis, unspecified site; K21.9 Gastro-esophageal reflux disease without esophagitis; E78.00 Pure hypercholesterolemia, unspecified; D64.9 Anemia, unspecified; I11.0 Hypertensive heart disease with heart failure; I50.9 Heart failure, unspecified; Z95.810 Presence of automatic (implantable) cardiac defibrillator; I25.2 Old myocardial infarction; Z79.01 Long term (current) use of anticoagulants; Z86.73 Personal history of transient ischemic attack (TIA), and cerebral infarction without residual deficits; Z79.899 Other long term (current) drug therapy
CPT/HCPCS: 66984; V2630; J2250; J3490 ×3; A9270; J3010; C9447; 142

== ENCOUNTER 2017-11-03 08:56 | Day surgery (SDC) | payer MEDICARE, OTHER ==
[~2017-11-03 08:56] MED LIST changes: +CHONDR SU A NA/HYALUR INTRAOC KIT (SURGICARE) ONE; +EPINEPHRINE INJ/PF 1 MG/1 ML AMPULE ONE; -KETOROLAC TROMETHAMINE 0.45% 4 DROP/0.4 ML DROPERETTE OD PRN; +KETOROLAC TROMETHAMINE 0.45% 4 DROP/0.4 ML DROPERETTE OS PRN; +LIDOCAINE 1% INJ-PF (10 MG/ML) 30 ML SDV ONE; +TOBRAMYCIN SULFATE/DEXAMETH OPH OINTMENT 3.5 GM ONE
[2017-11-03] MEDS: TETRACAINE HCL 0.5% OPH SOLN 0.6 ML DROPERETTE OS PRN ×3 (09:46→10:15)
[2017-11-03] MEDS: CYCLOPENTOLATE 0.2%/PHENYLEPHRINE 1% OPH SOLN 2 ML OS PRN ×3 (09:47→10:10)
[2017-11-03] MEDS: TROPICAMIDE 1% OPH SOLN 3 ML OS PRN ×3 (09:47→10:10)
[2017-11-03] MEDS: BESIFLOXACIN HCL 0.6% OPH SUSP 5 ML BOTTLE OS PRN ×3 (09:48→10:41)
[2017-11-03] MEDS ORDERED: MIDAZOLAM 2 MG/2 ML INJ ONE (10:11)
[2017-11-03] MEDS ORDERED: FENTANYL CITRATE INJ/PF 100 MCG/2 ML AMPUL ONE (10:12)
== END 2017-11-03 11:28 | disposition home or self-care (01) ==
LOC: SC 08:56
PROVIDERS: ATTEND Ophthalmology
PROC: 08RK3JZ Replacement of Left Lens with Synthetic Substitute, Percutaneous Approach (ICD-10-PCS; principal; 2017-11-03 10:00)
DX: H25.12 Age-related nuclear cataract, left eye (principal); Z98.41 Cataract extraction status, right eye; I10 Essential (primary) hypertension; E70.0 Classical phenylketonuria; M19.90 Unspecified osteoarthritis, unspecified site; K21.9 Gastro-esophageal reflux disease without esophagitis; I11.0 Hypertensive heart disease with heart failure; I50.9 Heart failure, unspecified; Z86.73 Personal history of transient ischemic attack (TIA), and cerebral infarction without residual deficits; Z95.810 Presence of automatic (implantable) cardiac defibrillator
CPT/HCPCS: 66984; V2630; J2250; J3490 ×3; A9270; J0171; 142; J3010

== ENCOUNTER → 2017-11-23 | Outpatient (CLI) | payer MEDICARE ==
--- NOTE | 2017-11-23 16:43 | RADIOLOGY REPORT (SQ) ---
EXAM DESCRIPTION: KNEE LEFT 2 VIEWS COMPLETED DATE/TIME: 11/23/2017 4:28 pm REASON FOR STUDY: HEMARTHROSIS, LEFT KNEE M25.062 HEMARTHROSIS, LEFT KNEE COMPARISON: 02/07/2015 NUMBER OF VIEWS: Two views TECHNIQUE: AP and lateral radiographic images acquired of the left knee. LIMITATIONS: None. FINDINGS: MINERALIZATION: Marked osteoporosis BONES: Suspect acute transverse fracture of the patella, upper 3rd. Distal femur, proximal tibia and fibula grossly intact. JOINT: Large knee joint effusion SOFT TISSUES: Diffuse significant soft tissue swelling. No radiopaque foreign body. Diffuse atheros clerotic arterial vascular calcification OTHER: No other significant finding. IMPRESSION: Large knee joint effusion with diffuse soft tissue swelling. Suspect a nondisplaced fra cture through the upper half of the patella TECHNICAL DOCUMENTATION: JOB ID: [id number] [email or web address]- All Rights Reserved
== END ==
LOC: OD 15:35
PROVIDERS: ATTEND Internal Medicine
DX: M25.062 Hemarthrosis, left knee (principal); M25.462 Effusion, left knee

== ENCOUNTER 2017-12-09 11:21 | Inpatient (IN) | payer MEDICARE, OTHER ==
--- NOTE | 2017-12-09 12:00 | EKG REPORT ---
SEVERITY:- ABNORMAL ECG - ATRIAL-VENTRICULAR DUAL-PACED RHYTHM : Confirmed by: Armando Corrales 09-Dec-2017 11:59:11
[2017-12-09] MEDS ORDERED: HYDROCODONE/ACETAMINOPHEN 5-325 MG TABLET PO ONE (12:23)
--- NOTE | 2017-12-09 12:32 | ER Document Report ---
ED General - General Chief Complaint: Fall Stated Complaint: GENERAL WEAKNESS Time Seen by Provider: 12/09/17 11:43 Mode of Arrival: Medic Information source: Patient, Relative Notes: 82-year-old female history of dementia who had a fall a few weeks ago with left patella fracture presents after a mechanical fall over the past few days. It is noted that the patient after the fall was able to ambulate however since then symptoms have been worsening. Daughter notes it seems to be hurting when they move her. They deny any actual weakness denies any other concerns TRAVEL OUTSIDE OF THE [place] IN LAST 30 DAYS: No - HPI Onset: Other Onset/Duration: Persistent, Worse Quality of pain: Achy Severity: Mild Pain Level: 1 Associated symptoms: Body/muscle aches Exacerbated by: Movement, Walking Relieved by: Denies Similar symptoms previously: Yes Recently seen / treated by doctor: Yes - Related Data Allergies/Adverse Reactions: strawberry [[place]] Allergy (Intermediate, Verified 10/13/17 13:42) RASH Past Medical History - Social History Smoking Status: Never Smoker Cigarette use (# per day): No Chew tobacco use (# tins/day): No Smoking Education Provided: No Family History: Arthritis, CAD, CVA, DM, Hyperlipidemia, Hypertension, Malignancy - Past Medical History Cardiac Medical History: Reports: Hx Atrial Fibrillation, Hx Congestive Heart Failure, Hx Heart Attack, Hx Hypercholesterolemia, Hx Hypertension, Hx Pulmonary Embolism Denies: Hx Coronary Artery Disease, Hx Peripheral Vascular Disease, Hx Heart Murmur Pulmonary Medical History: Denies: Hx Asthma, Hx Bronchitis, Hx COPD, Hx Pneumonia, Hx Tuberculosis Neurological Medical History: Denies: Hx Cerebrovascular Accident, Hx Seizures Renal/ Medical History: Denies: Hx End Stage Renal Disease GI Medical History: Denies: Hx Hepatitis, Hx Hiatal Hernia, Hx Ulcer Musculoskeltal Medical History: Reports Hx Arthritis, Denies Hx Fibromyalgia, Reports Hx Musculoskeletal Deformity, Reports Hx Musculoskeletal Trauma Psychiatric Medical History: Denies: Hx Dementia, Hx Depression Traumatic Medical History: Reports: Hx Fractures - left arm, right hip left tib fib Infectious Medical History: Denies: Hx Hepatitis Past Surgical History: Reports: Hx Cardiac Catheterization - stents, Hx Cardiac Surgery - defibillator/pacemaker, Hx Coronary Stent, Hx Hysterectomy, Hx Orthopedic Surgery - right hip left tib fib and left arm, Hx Pacemaker - 2009. Denies: Hx Appendectomy, Hx Section, Hx Cholecystectomy, Hx Coronary Artery Bypass Graft, Hx Gastric Bypass Surgery, Hx Herniorrhaphy, Hx Mastectomy , Hx Open Heart Surgery, Hx Tonsillectomy, Hx Tubal Ligation - Immunizations Hx Diphtheria, Pertussis, Tetanus Vaccination: No Hx Pneumococcal Vaccination: 05/15/11 Review of Systems - Review of Systems Notes: REVIEW OF SYSTEMS: CONSTITUTIONAL : Denies fever, chills, or sweats. Denies recent illness. EENT: Denies eye, ear, throat, or mouth pain or symptoms. Denies nasal or sinus congestion or discharge. Denies throat, tongue, or mouth swelling or difficulty swallowing. CARDIOVASCULAR: Denies chest pain. Denies palpitations or racing or irregular heart beat. Denies ankle edema. RESPIRATORY: Denies cough, cold, or chest congestion. Denies shortness of breath, difficulty breathing, or wheezing. GASTROINTESTINAL: Denies abdominal pain or distention. Denies nausea, vomiting , or diarrhea. Denies blood in vomitus, stools, or per rectum. Denies black, tarry stools. Denies constipation. GENITOURINARY: Denies difficulty urinating, painful urination, burning, frequency, blood in urine, or discharge. FEMALE GENITOURINARY: Denies vaginal bleeding, heavy or abnormal periods, irregular periods. Denies vaginal discharge or odor. MUSCULOSKELETAL: admit to body aches SKIN: Denies rash, lesions or sores. HEMATOLOGIC : Denies easy bruising or bleeding. LYMPHATIC: Denies swollen, enlarged glands. NEUROLOGICAL: Denies confusion or altered mental status. Denies passing out or loss of consciousness. Denies dizziness or lightheadedness. Denies headache. Denies weakness or paralysis or loss of use of either side. Denies problems with gait or speech. Denies sensory loss, numbness, or tingling. Denies seizures. PSYCHIATRIC: Denies anxiety or stress. Denies depression, suicidal ideation, or homicidal ideation. ALL OTHER SYSTEMS REVIEWED AND NEGATIVE. PHYSICAL EXAMINATION: GENERAL: elderly female no acute distress at rest, tenderness with rom. HEAD: Atraumatic, normocephalic. EYES: Pupils equal round and reactive to light, extraocular movements intact, conjunctiva are normal. ENT: Nares patent, oropharynx clear without exudates. Moist mucous membranes. NECK: Normal range of motion, supple without lymphadenopathy LUNGS: Breath sounds clear to auscultation bilaterally and equal. No wheezes rales or rhonchi. HEART: Regular rate and rhythm without murmurs ABDOMEN: Soft, nontender, nondistended abdomen. No guarding, no rebound. No masses appreciated. Female : deferred Musculoskeletal: left knee in brace, tenedr of the left hip NEUROLOGICAL: Cranial nerves grossly intact. Normal speech, normal gait. Normal sensory, motor exams PSYCH: Normal mood, normal affect. SKIN: Warm, Dry, normal turgor, no rashes or lesions noted. Dictation was performed using [employer] voice recognition software Physical Exam - Vital signs Vitals: Pulse Resp BP Pulse Ox 60 13 132/63 H 99 12/09/17 11:38 12/09/17 11:38 12/09/17 11:38 12/09/17 11:38 Course - Re-evaluation Re-evalutation: 12/09/17 14:21 82-year-old female with complaints of generalized weakness left hip pain, physical examination noted no significant abnormality, on my evaluation though the patient does appear to be slumped over and had a generalized weakness he had no specific point weakness. 12/09/17 14:54 Patient does in fact have acute renal failure, I will admit him give IV fluids - Vital Signs Vital signs: Temp Pulse Resp BP Pulse Ox 97.4 F 60 13 132/63 H 99 12/09/17 11:56 12/09/17 11:38 12/09/17 11:38 12/09/17 11:38 12/09/17 11:38 - Laboratory Result Diagrams: 12/09/17 13:08 12/09/17 13:08 Laboratory results interpreted by me: 12/09/17 12/09/17 13:08 13:08 Hgb 11.9 L Hct 35.8 L RDW 15.2 H Plt Count 118 L Chloride 110 H Carbon Dioxide 15 L BUN 73 H Creatinine 1.92 H Est GFR ( Amer) 30 L Est GFR (Non-Af Amer) 25 L Direct Bilirubin 0.6 H Alkaline Phosphatase 147 H Creatine Kinase 216 H Albumin 3.3 L Critical Care Note - Critical Care Note Total time excluding time spent on procedures (mins): 33 Comments: 33 minutes of critical care time spent in direct contact evaluating and reevaluating the patient, treating symptoms, reviewing labs and studies and speaking with family and consultants excluding any procedures Discharge - Discharge Clinical Impression: Generalized weakness Acute renal failure Qualifiers: Acute renal failure type: unspecified Qualified Code(s): N17.9 - Acute kidney failure, unspecified Condition: Fair Disposition: ADMITTED INPATIENT Admitting Provider: Eloisa Unit Admitted: Medical Floor Referrals: JOÃO BRAGA MD [Primary Care Provider] - Follow up as needed
--- NOTE | 2017-12-09 12:43 | RADIOLOGY REPORT (SQ) ---
EXAM DESCRIPTION: CT HEAD WITHOUT COMPLETED DATE/TIME: 12/09/2017 12:33 pm REASON FOR STUDY: fall COMPARISON: 07/12/2016. TECHNIQUE: Axial images acquired through the brain without intravenous contrast. Images reviewed wi th bone, brain and subdural windows. Images stored on PACS. All CT scanners at this facility use dose modulation, iterative reconstruction, and/or weight based d osing when appropriate to reduce radiation dose to as low as reasonably achievable (ALARA). [facility]: Dose Right [facility]: CareDose [facility]: Dose Right [facility]: Teradose 4D [facility]: Wattpad RADIATION DOSE: mGy. LIMITATIONS: None. FINDINGS: VENTRICLES: Prominent. CEREBRUM: No masses. No hemorrhage. No midline shift. Areas of low density in the white matter mos t likely due to chronic micro-vascular ischemic change. Old lacunar infarcts in the basal ganglia. No evidence for acute infarction. CEREBELLUM: No masses. No hemorrhage. No alteration of density. No evidence for acute infarction. EXTRAAXIAL SPACES: Age-related involutional change. No fluid collections. No masses. ORBITS AND GLOBE: No intra- or extraconal masses. Normal contour of globe without masses. CALVARIUM: No fracture. PARANASAL SINUSES: Soft tissue in the left sphenoid sinus. SOFT TISSUES: No mass or hematoma. OTHER: No other significant finding. IMPRESSION: CHRONIC CHANGES OF ATROPHY AND MICROVASCULAR ISCHEMIA. NO ACUTE PROCESS. EVIDENCE OF ACUTE STROKE: NO. TECHNICAL DOCUMENTATION: JOB ID: [id number] Quality ID # [id number]: Final reports with documentation of one or more dose reduction techniques (e.g., Au tomated exposure control, adjustment of the mA and/or kV according to patient size, use of iterative reconstruction technique) 2010 [employer]- All Rights Reserved
--- NOTE | 2017-12-09 13:08 | RADIOLOGY REPORT (SQ) ---
EXAM DESCRIPTION: HIP LEFT AP/LATERAL COMPLETED DATE/TIME: 12/09/2017 12:54 pm REASON FOR STUDY: fall COMPARISON: 11/17/2016. NUMBER OF VIEWS: Two views. TECHNIQUE: AP pelvis and additional frog-leg view of the left hip. LIMITATIONS: None. FINDINGS: MINERALIZATION: Normal. LEFT HIP: No fracture or dislocation. No worrisome bone lesions. RIGHT HIP: No fracture or dislocation. Stable hardware No worrisome bone lesions. PUBIS AND ISCHIUM: No fracture. PELVIS: No fracture. SACRUM: No fracture or dislocation. No worrisome bone lesions. LOWER LUMBAR SPINE: No fracture or dislocation. No worrisome bone lesions. Degenerative changes. SOFT TISSUES: No findings. OTHER: No other significant finding. IMPRESSION: STABLE CHRONIC FINDINGS. NO RADIOGRAPHIC EVIDENCE OF ACUTE INJURY. TECHNICAL DOCUMENTATION: JOB ID: [id number] [email or web address]- All Rights Reserved
[2017-12-09 13:23] LABS: ABSOLUTE BASOPHILS # (AUTO) 0.1 10^3/uL (0.0-0.2); ABSOLUTE EOSINOPHILS # (AUTO) 0.1 10^3/uL (0.0-0.6); ABSOLUTE LYMPHOCYTES (AUTO) 1.5 10^3/uL (0.5-4.7); ABSOLUTE MONOCYTES (AUTO) 0.4 10^3/uL (0.1-1.4); ABSOLUTE NEUT (AUTO) 5.1 10^3/uL (1.7-8.2); BASOPHILS % (AUTO) 1.1 % (0-2); EOSINOPHILS % (AUTO) 1.1 % (0-6); HEMATOCRIT 35.8 % (36.0-47.0); HEMOGLOBIN 11.9 g/dL (12.0-15.5); MEAN CORPUSCULAR HEMOGLOBIN 30.2 pg (27.0-33.4); MEAN CORPUSCULAR HGB CONC 33.3 g/dL (32.0-36.0); MEAN CORPUSCULAR VOLUME 91 fl (80-97); MONOCYTES % (AUTO) 5.1 % (3-13); PLATELET COUNT 118 10^3/uL (150-450); RED BLOOD COUNT 3.95 10^6/uL (3.72-5.28); RED CELL DISTRIBUTION WIDTH 15.2 % (11.5-14.0); SEGMENTED NEUTROPHILS % (AUTO) 71.7 % (42-78); TOTAL CELLS COUNTED % (AUTO) 100 %
[2017-12-09 13:54] LABS: CREATINE KINASE MB 0.65 ng/mL (<4.55); TROPONIN I 0.023 ng/mL
[2017-12-09 14:03] LABS: ALANINE AMINOTRANSFERASE 19 U/L (9-52); ALBUMIN 3.3 g/dL (3.5-5.0); ALKALINE PHOSPHATASE 147 U/L (38-126); ANION GAP 16 (5-19); ASPARTATE AMINO TRANSFERASE 31 U/L (14-36); BILIRUBIN,DIRECT 0.6 mg/dL (0.0-0.4); BILIRUBIN,TOTAL 0.7 mg/dL (0.2-1.3); BLOOD UREA NITROGEN 73 mg/dL (7-20); CALCIUM 9.2 mg/dL (8.4-10.2); CARBON DIOXIDE 15 mmol/L (22-30); CHLORIDE 110 mmol/L (98-107); CREATINE KINASE 216 U/L (30-135); GLUCOSE 82 mg/dL (75-110); POTASSIUM 3.8 mmol/L (3.6-5.0); SODIUM 140.8 mmol/L (137-145); TOTAL PROTEIN 6.3 g/dL (6.3-8.2)
[2017-12-09] MEDS ORDERED: NORMAL SALINE 1000 ML 1,000 ML IV PRN (14:20)
[2017-12-09 16:31] LABS: APPEARANCE,URINE CLEAR; BILIRUBIN,URINE NEGATIVE (NEGATIVE); COLOR,URINE STRAW; GLUCOSE, URINE NEGATIVE (NEGATIVE); KETONES,URINE TRACE mg/dL (NEGATIVE); LEUKOCYTE ESTERASE,URINE NEGATIVE (NEGATIVE); NITRITE,URINE NEGATIVE (NEGATIVE); PROTEIN,URINE NEGATIVE (NEGATIVE); UROBILINOGEN,URINE NEGATIVE mg/dL (<2.0)
--- NOTE | 2017-12-09 18:54 | RADIOLOGY REPORT (SQ) ---
EXAM DESCRIPTION: KNEE LEFT 2 VIEWS COMPLETED DATE/TIME: 12/09/2017 6:44 pm REASON FOR STUDY: fall knee pain and swelling COMPARISON: None. NUMBER OF VIEWS: Two views TECHNIQUE: AP and lateral radiographic images acquired of the left knee. LIMITATIONS: None. FINDINGS: MINERALIZATION: Bony structures are diffusely osteopenic BONES: There is a comminuted impaction type fracture of the distal femoral diaphysis. No other evide nce for fracture is seen. JOINT: No effusion. SOFT TISSUES: No soft tissue swelling. No radio-opaque foreign body. OTHER: No other significant finding. IMPRESSION: Comminuted impaction type fracture of the distal femur. No other evidence for fracture is seen. TECHNICAL DOCUMENTATION: JOB ID: [id number] [email or web address]- All Rights Reserved
--- NOTE | 2017-12-09 18:55 | RADIOLOGY REPORT (SQ) ---
EXAM DESCRIPTION: ANKLE LEFT COMPLETE COMPLETED DATE/TIME: 12/09/2017 6:44 pm REASON FOR STUDY: Fall ankle pain and swelling COMPARISON: None. NUMBER OF VIEWS: Three views. TECHNIQUE: AP, lateral, and oblique radiographic images acquired of the left ankle. LIMITATIONS: None. FINDINGS: MINERALIZATION: Bony structures are osteopenia BONES: No acute fracture dislocation. Orthopedic hardware is identified transfixing the distal tibia . There is some mild bony deformity of the distal fibula presumably related to previous trauma JOINTS: No effusions. SOFT TISSUES: No soft tissue swelling. No foreign body. OTHER: No other significant finding. IMPRESSION: No acute fracture dislocation. Other findings as noted above TECHNICAL DOCUMENTATION: JOB ID: [id number] [employer]- All Rights Reserved
[2017-12-09 23:05] LABS: CREATINE KINASE MB 0.74 ng/mL (<4.55)
[2017-12-09 23:11] LABS: TROPONIN I 0.037 ng/mL
[2017-12-09 23:58] LABS: LIPASE 67.2 U/L (23-300); MAGNESIUM 2.5 mg/dL (1.6-2.3); PHOSPHORUS 5.7 mg/dL (2.5-4.5)
[2017-12-09 23:58] LABS: INTERNATIONAL RATION (INR) 1.09; PROTHROMBIN TIME 14.8 SEC (11.4-15.4)
[2017-12-09 23:59] LABS: PARTIAL THROMBOPLASTIN TIME 29.2 SEC (23.5-35.8)
[2017-12-10 00:16] LABS: FREE T4 (FREE THYROXINE) 1.67 ng/dL (0.78-2.19)
[2017-12-10 00:30] LABS: THYROID STIMULATING HORMONE 1.16 uIU/mL (0.47-4.68)
[2017-12-10] MEDS ORDERED: IBUPROFEN 800 MG TABLET PO PRN (00:55)
[2017-12-10] MEDS: HYDROCODONE/ACETAMINOPHEN 10-325 MG TABLET PO PRN ×2 (01:11→10:16)
[2017-12-10] MEDS ORDERED: ZOLEDRONIC ACID 5 MG/100 ML BOTTLE IV ONE (04:08)
[2017-12-10] MEDS ORDERED: SACUBITRIL/VALSARTAN 49 MG/51 MG TABLET PO ONE ×2 (04:15→08:30)
[2017-12-10] MEDS ORDERED: LIDOCAINE 1% INJ-PF (10 MG/ML) 30 ML SDV ONE (04:21)
--- NOTE | 2017-12-10 05:44 | PDOC H&P ---
History of Present Illness Admission Date/PCP: 12/09/17 15:38 JOÃO BRAGA MD History of Present Illness: VERONA VALDEZ is a 82 year old female, She has a history of chronic systolic heart failure, dementia, osteoporosis, chronic atrial fibrillation, angiodysplasia of the small intestine, she came to the emergency room with family members because of pain in the left lower extremity, the history was that while she was walking her leg suddenly lost posture bunckles down and.fell. She was recently seen in the office when she fell and sustained left patella fracture associated with hemarthrosis. She was referred to orthopedic for evaluation this was managed conservatively with a brace in the. In the emergency room she was evaluated she was told to be dehydrated because of slight increase in BUN and creatinine when compared to previous data. When I saw patient emergency room it seems there was malrotation of the left lower extremity x-ray of the left knee and ankle was obtained, it showed comminuted fracture of the distal femur Past Medical History Cardiac Medical History: Reports: Atrial Fibrillation, Congestive Heart Failure , Myocardial Infarction, Hyperlipidema, Hypertension, Pulmonary Embolism GI Medical History: Reports: Other - Angiodysplasia of the small intestine Musculoskeltal Medical History: Reports: Arthritis Psychiatric Medical History: Reports: Dementia Hematology: Reports: Anemia Past Surgical History Past Surgical History: Reports: Cardiac Catheterization - stents, Coronary Stent , Hysterectomy, Orthopedic Surgery - right hip left tib fib and left arm, Pacemaker - 2008 Social History Smoking Status: Never Smoker Frequency of Alcohol Use: None Hx Recreational Drug Use: No Drugs: None Hx Prescription Drug Abuse: No - Advance Directive Resuscitation Status: Full Code Family History Family History: Arthritis, CAD, CVA, DM, Hyperlipidemia, Hypertension, Malignancy Parental Family History Reviewed: Yes Children Family History Reviewed: Yes Sibling(s) Family History Reviewed.: Yes Medication/Allergy Home Medications: Apixaban [Eliquis] 2.5 mg PO Q12 12/09/17 Furosemide [Lasix 40 mg Tablet] 40 mg PO BID 12/09/17 Gabapentin [Neurontin 300 mg Capsule] 300 mg PO Q8 12/09/17 Hydrocodone/Acetaminophen [Hydrocodone-Acetamin 5-325 mg] 1 tab PO Q6HP PRN Ibuprofen [Motrin 800 mg Tablet] 800 mg PO Q8HP PRN 12/09/17 Isosorbide Mononitrate [Isosorbide Mononitrate ER] 30 mg PO DAILY 12/09/17 Memantine HCl/Donepezil HCl [Namzaric 28 mg-10 mg Capsule] 1 cap PO DAILY Metoprolol Succinate [Toprol Xl 50 mg Tab.sr] 50 mg PO Q12 12/09/17 Potassium Chloride [Klor-Con 10 Meq Tablet.sa] 10 meq PO DAILY 12/09/17 Rosuvastatin Calcium [Crestor 5 mg Tablet] 5 mg PO QHS 12/09/17 Omeprazole [Omeprazole] 20 mg PO DAILY 12/10/17 Allergies/Adverse Reactions: strawberry [[place]] Allergy (Intermediate, Verified 10/13/17 13:42) RASH Review of Systems Constitutional: ABSENT: chills, fever(s), headache(s), weight gain, weight loss Eyes: ABSENT: visual disturbances Ears: ABSENT: hearing changes Cardiovascular: ABSENT: chest pain, dyspnea on exertion, edema, orthropnea, palpitations Respiratory: ABSENT: cough, hemoptysis Gastrointestinal: ABSENT: abdominal pain, constipation, diarrhea, hematemesis, hematochezia, nausea, vomiting Genitourinary: ABSENT: dysuria, hematuria Musculoskeletal: PRESENT: joint swelling Integumentary: ABSENT: rash, wounds Neurological: ABSENT: abnormal gait, abnormal speech, confusion, dizziness, focal weakness, syncope Psychiatric: ABSENT: anxiety, depression, homidical ideation, suicidal ideation Endocrine: ABSENT: cold intolerance, heat intolerance, menstrual abnormalities, polydipsia, polyuria Hematologic/Lymphatic: ABSENT: easy bleeding, easy bruising, lymphadenopathy Physical Exam Vital Signs: Temp Pulse Resp BP Pulse Ox 98.6 F 59 L 19 133/56 H 93 12/10/17 03:15 12/10/17 03:15 12/10/17 03:15 12/10/17 03:15 12/10/17 03:15 Intake & Output 12/08/17 12/09/17 12/10/17 06:59 06:59 06:59 Weight 49.3 kg General appearance: PRESENT: no acute distress, well-developed, well-nourished Head exam: PRESENT: atraumatic, normocephalic Eye exam: PRESENT: conjunctiva pink, EOMI, PERRLA Ear exam: PRESENT: normal external ear exam Mouth exam: PRESENT: dry mucosa Neck exam: PRESENT: full ROM Respiratory exam: PRESENT: clear to auscultation kit Cardiovascular exam: PRESENT: RRR, +S1, +S2 Pulses: PRESENT: normal dorsalis pedis pul, +2 pedal pulses bilateral Vascular exam: PRESENT: normal capillary refill GI/Abdominal exam: PRESENT: normal bowel sounds, soft Rectal exam: PRESENT: deferred Musculoskeletal exam: PRESENT: deformity - Deformity of the left lower extremities Neurological exam: PRESENT: alert Psychiatric exam: PRESENT: appropriate affect, normal mood Skin exam: PRESENT: dry, intact, warm Results Laboratory Results: 12/09/17 12/09/17 12/09/17 16:00 22:02 22:02 Phosphorus 5.7 H Magnesium 2.5 H Ammonia Amylase 79 Lipase 67.2 TSH 1.16 Free T4 1.67 Urine Color STRAW Urine Appearance CLEAR Urine pH 5.0 Ur Specific [place] 1.010 Urine Protein NEGATIVE Urine Glucose (UA) NEGATIVE Urine Ketones TRACE H Urine Blood NEGATIVE Urine Nitrite NEGATIVE Ur Leukocyte Esterase NEGATIVE Urine WBC (Auto) 1 12/09/17 23:20 Phosphorus Magnesium Ammonia < 8.7 L Amylase Lipase TSH Free T4 Urine Color Urine Appearance Urine pH Ur Specific [place] Urine Protein Urine Glucose (UA) Urine Ketones Urine Blood Urine Nitrite Ur Leukocyte Esterase Urine WBC (Auto) 12/09/17 12/09/17 12/09/17 22:02 22:02 22:02 Creatine Kinase 168 H CK-MB (CK-2) 0.74 Troponin I 0.037 NT-Pro-B Natriuret Pep 3940 H Impressions: Ankle X-Ray 12/09/17 00:00 IMPRESSION: No acute fracture dislocation. Other findings as noted above Knee X-Ray 12/09/17 00:00 IMPRESSION: Comminuted impaction type fracture of the distal femur. No other evidence for fracture is seen. Head CT 12/09/17 12:23 IMPRESSION: CHRONIC CHANGES OF ATROPHY AND MICROVASCULAR ISCHEMIA. NO ACUTE PROCESS. EVIDENCE OF ACUTE STROKE: NO. Hip X-Ray 12/09/17 12:23 IMPRESSION: STABLE CHRONIC FINDINGS. NO RADIOGRAPHIC EVIDENCE OF ACUTE INJURY. Assessment & Plan - Diagnosis (1) Closed fracture of distal end of femur Qualifiers: Encounter type: initial encounter Fracture morphology: unspecified fracture morphology Laterality: left Qualified Code(s): S72.402A - Unspecified fracture of lower end of left femur, initial encounter for closed fracture Is this a current diagnosis for this admission?: Yes Plan: Orthopedic consultation (2) Chronic systolic heart failure Is this a current diagnosis for this admission?: Yes Plan: Start patient on entresto (3) Pathologic fracture of femur associated with osteoporosis Qualifiers: Encounter type: initial encounter Laterality: left Qualified Code(s): M80.852A - Other osteoporosis with current pathological fracture, left femur, initial encounter for fracture Is this a current diagnosis for this admission?: Yes Plan: She will be given osteoclast IV infusion
[2017-12-10] MEDS ORDERED: NORMAL SALINE INJ/PF 0.9% 10 ML SDV IV PRN (06:04)
[2017-12-10] MEDS: GABAPENTIN 300 MG CAPSULE PO SCH ×3 (06:06→21:53)
[2017-12-10] MEDS: NORMAL SALINE INJ/PF 0.9% 10 ML SDV IV SCH ×3 (06:06→21:53)
[2017-12-10] MEDS: LANSOPRAZOLE 15 MG TAB.RAP.DR PO SCH (06:06)
[2017-12-10] MEDS: NORMAL SALINE 1000 ML 1,000 ML IV PRN ×2 (06:09→21:49)
--- NOTE | 2017-12-10 07:15 | RADIOLOGY REPORT (SQ) ---
EXAM DESCRIPTION: CHEST SINGLE VIEW CLINICAL HISTORY: central line placement COMPARISON: 08/13/2017 FINDINGS: Single frontal view of the chest. Right subclavian central venous catheter with tip projected into the right internal jugular vein. Left-sided pacemaker. Atherosclerotic calcification of the aortic arch. Heart is not enlarged. No consolidation, pneumothorax, or pleural effusion. No acute osseous abnormality identified. Upper abdominal soft tissues are unremarkable. IMPRESSION: 1. Right subclavian central venous catheter with tip projecting into the right IJ. Repositioning may be beneficial. Report called to Dr. Hudson at 0613 hours on 12/10/2017
[2017-12-10 07:40] LABS: ALANINE AMINOTRANSFERASE 25 U/L (9-52); ALBUMIN 2.3 g/dL (3.5-5.0); ALKALINE PHOSPHATASE 101 U/L (38-126); ANION GAP 15 (5-19); ASPARTATE AMINO TRANSFERASE 19 U/L (14-36); BILIRUBIN,DIRECT 0.3 mg/dL (0.0-0.4); BILIRUBIN,TOTAL 0.5 mg/dL (0.2-1.3); BLOOD UREA NITROGEN 54 mg/dL (7-20); CALCIUM 7.4 mg/dL (8.4-10.2); CHLORIDE 116 mmol/L (98-107); CHOLESTEROL 115.35 mg/dL (0-200); CREATINE KINASE 105 U/L (30-135); GLUCOSE 69 mg/dL (75-110); SODIUM 141.3 mmol/L (137-145); TOTAL PROTEIN 4.7 g/dL (6.3-8.2); TRIGLYCERIDES 148 mg/dL (<150)
[2017-12-10 07:50] LABS: CREATINE KINASE MB 0.78 ng/mL (<4.55); TROPONIN I 0.046 ng/mL
[2017-12-10 07:51] LABS: DIRECT LDL 58 mg/dL (<100)
[2017-12-10 08:03] LABS: CARBON DIOXIDE 10 mmol/L (22-30); POTASSIUM 2.8 mmol/L (3.6-5.0)
[2017-12-10 09:58] LABS: ABSOLUTE BASOPHILS # (AUTO) 0.1 10^3/uL (0.0-0.2); ABSOLUTE LYMPHOCYTES (AUTO) 1.2 10^3/uL (0.5-4.7); ABSOLUTE MONOCYTES (AUTO) 0.3 10^3/uL (0.1-1.4); ABSOLUTE NEUT (AUTO) 5.4 10^3/uL (1.7-8.2); BASOPHILS % (AUTO) 0.8 % (0-2); EOSINOPHILS % (AUTO) 0.2 % (0-6); HEMATOCRIT 31.9 % (36.0-47.0); HEMOGLOBIN 10.7 g/dL (12.0-15.5); LYMPHOCYTES % (AUTO) 17.6 % (13-45); MEAN CORPUSCULAR HEMOGLOBIN 30.5 pg (27.0-33.4); MEAN CORPUSCULAR HGB CONC 33.5 g/dL (32.0-36.0); MEAN CORPUSCULAR VOLUME 91 fl (80-97); MONOCYTES % (AUTO) 3.7 % (3-13); PLATELET COUNT 111 10^3/uL (150-450); RED BLOOD COUNT 3.51 10^6/uL (3.72-5.28); RED CELL DISTRIBUTION WIDTH 15.5 % (11.5-14.0); SEGMENTED NEUTROPHILS % (AUTO) 77.7 % (42-78); TOTAL CELLS COUNTED % (AUTO) 100 %; WHITE BLOOD COUNT 6.9 10^3/uL (4.0-10.5)
[2017-12-10] MEDS ORDERED: FUROSEMIDE 40 MG TABLET PO SCH (10:00)
[2017-12-10] MEDS ORDERED: (PENDING PHARMACY ID) (Memantine Hcl/Donepezil Hcl [Namzaric 28 Mg-10 Mg Capsule] 1 CAP) PO SCH (10:00)
[2017-12-10] MEDS: METOPROLOL SUCCINATE 50 MG TAB.SR.24H PO SCH ×2 (10:04→21:53)
[2017-12-10] MEDS: POTASSIUM CHLORIDE 10 MEQ TABLET.SA PO SCH (10:05)
[2017-12-10] MEDS: DONEPEZIL HCL 5 MG TABLET PO SCH (10:05)
[2017-12-10] MEDS: ISOSORBIDE MONONITRATE 30 MG TAB.ER.24H PO SCH (10:05)
[2017-12-10] MEDS: APIXABAN 2.5 MG TABLET PO SCH ×2 (10:06→18:07)
[2017-12-10 10:17] LABS: ALANINE AMINOTRANSFERASE 23 U/L (9-52); ALBUMIN 2.9 g/dL (3.5-5.0); ALKALINE PHOSPHATASE 120 U/L (38-126); ANION GAP 18 (5-19); ASPARTATE AMINO TRANSFERASE 22 U/L (14-36); BILIRUBIN,DIRECT 0.4 mg/dL (0.0-0.4); BILIRUBIN,TOTAL 0.6 mg/dL (0.2-1.3); BLOOD UREA NITROGEN 67 mg/dL (7-20); CALCIUM 9.1 mg/dL (8.4-10.2); CARBON DIOXIDE 11 mmol/L (22-30); CHLORIDE 109 mmol/L (98-107); GLUCOSE 187 mg/dL (75-110); POTASSIUM 3.2 mmol/L (3.6-5.0); SODIUM 138.2 mmol/L (137-145); TOTAL PROTEIN 5.5 g/dL (6.3-8.2)
--- NOTE | 2017-12-10 11:59 | OPERATIVE REPORT E ---
Operative Report NAME: VERONA VALDEZ : 1935 AGE: 82Y DATE OF SURGERY: 12/10/2017 ROOM: 304 PREOPERATIVE DIAGNOSES: 1. INADEQUATE PERIPHERAL VENOUS ACCESS. 2. DEHYDRATION. 3. ACUTE KIDNEY INJURY. 4. LEFT PATELLAR FRACTURE. 5. POOR PERIPHERAL VENOUS ACCESS. POSTOPERATIVE DIAGNOSES: 1. INADEQUATE PERIPHERAL VENOUS ACCESS. 2. DEHYDRATION. 3. ACUTE KIDNEY INJURY. 4. LEFT PATELLAR FRACTURE. 5. POOR PERIPHERAL VENOUS ACCESS. OPERATION: Insertion of right subclavian vein triple lumen catheter. SURGEON: TRACI HUGGINS M.D. ANESTHESIA: Local. COMPLICATIONS: None. CONDITION: Stable. PROCEDURE: After consent was obtained, the patient's right neck and right anterior chest wall was prepped and draped in the usual sterile manner. Local anesthesia was infiltrated in an attempt to access the right external jugular vein but this could not be accessed. We then injected additional local anesthesia into the middle of the triangle of the right neck in order to access the right internal jugular vein, which was easily accessed. However, we were not able to advance the guidewire through the needle appropriately in spite of excellent blood flow on aspiration. After 2 attempts at advancing the wire through the internal jugular unsuccessfully, we then abandoned this approach and injected the skin above the space between the clavicle and the first rib. We then accessed the right subclavian vein without difficulty, and the guidewire was advanced easily. After advancing the guidewire, the needle was removed, vein dilator was advanced over the guidewire, and then using the sterile Seldinger technique, the triple lumen catheter was advanced over the guidewire was removed. We noted adequate antegrade and retrograde flow through each lumen, and each was flushed with saline. We secured the central line with 3-0 Silk suture and the Biopatch and the Tegaderm was applied after securing the catheter. Portable chest x-ray has been requested. Patient has good breath sounds bilaterally, and permission will be granted to use the central line shortly. DICTATING PHYSICIAN: TRACI HUGGINS M.D. [id number] PHY#: [id number] ID: [id number] JOB#: [id number] ACCT: [id number] cc:TRACI HUGGINS M.D. >
[2017-12-10] MEDS: SACUBITRIL/VALSARTAN 49 MG/51 MG TABLET PO SCH (18:07)
--- NOTE | 2017-12-10 19:15 | PDOC CONSULTATION ---
Consultation Consult Date: 12/10/17 Consult reason:: Left distal femur fracture History of Present Illness Admission Date/PCP: 12/09/17 15:38 JOÃO BRAGA MD History of Present Illness: 82-year-old female with previous fragility fractures including right hip fracture and ankle fracture that required surgery. Recently being treated for patella fracture with Dr. Ortiz patient fell from a wheelchair in a twisting injury to the left knee. Immediately had pain and deformity. Patient was brought by EMS and evaluated also our hospital where x-rays of the knee showed a distal third diaphyseal fracture of the left side. Complains of pain deformity but denies any numbness or tingling or paresthesias. Currently she is in a knee immobilizer with significant swelling of the extremity. Tender palpation. Unable to attempt any range of motion. Past Medical History Cardiac Medical History: Reports: Atrial Fibrillation, Congestive Heart Failure , Myocardial Infarction, Hyperlipidema, Hypertension, Pulmonary Embolism Denies: Coronary Artery Disease, Peripheral Vascular Disease, Heart Murmur Pulmonary Medical History: Denies: Asthma, Bronchitis, Chronic Obstructive Pulmonary Disease (COPD), Pneumonia, Tuberculosis Neurological Medical History: Denies: Seizures Renal/ Medical History: Denies: End Stage Renal Disease GI Medical History: Reports: Other - Angiodysplasia of the small intestine Denies: Hepatitis, Hiatal Hernia Musculoskeltal Medical History: Reports: Arthritis Denies: Fibromyalgia Psychiatric Medical History: Reports: Dementia Denies: Depression Hematology: Reports: Anemia Denies: Sickle Cell Disease Past Surgical History Past Surgical History: Reports: Cardiac Catheterization - stents, Coronary Stent , Hysterectomy, Orthopedic Surgery - right hip left tib fib and left arm, Pacemaker - 2008 Denies: Amputation, Appendectomy, Section, Cholecystectomy, Coronary Artery Bypass Graft, Gastric Bypass Surgery, Herniorrhaphy, Mastectomy , Tonsillectomy, Tubal Ligation Social History Smoking Status: Never Smoker Frequency of Alcohol Use: None Hx Recreational Drug Use: No Drugs: None Hx Prescription Drug Abuse: No - Advance Directive Resuscitation Status: Full Code Family History Family History: Arthritis, CAD, CVA, DM, Hyperlipidemia, Hypertension, Malignancy Parental Family History Reviewed: No Children Family History Reviewed: No Sibling(s) Family History Reviewed.: No Medication/Allergy Home Medications: Apixaban [Eliquis] 2.5 mg PO Q12 12/09/17 Furosemide [Lasix 40 mg Tablet] 40 mg PO BID 12/09/17 Gabapentin [Neurontin 300 mg Capsule] 300 mg PO Q8 12/09/17 Hydrocodone/Acetaminophen [Hydrocodone-Acetamin 5-325 mg] 1 tab PO Q6HP PRN Ibuprofen [Motrin 800 mg Tablet] 800 mg PO Q8HP PRN 12/09/17 Isosorbide Mononitrate [Isosorbide Mononitrate ER] 30 mg PO DAILY 12/09/17 Memantine HCl/Donepezil HCl [Namzaric 28 mg-10 mg Capsule] 1 cap PO DAILY Metoprolol Succinate [Toprol Xl 50 mg Tab.sr] 50 mg PO Q12 12/09/17 Potassium Chloride [Klor-Con 10 Meq Tablet.sa] 10 meq PO DAILY 12/09/17 Rosuvastatin Calcium [Crestor 5 mg Tablet] 5 mg PO QHS 12/09/17 Omeprazole [Omeprazole] 20 mg PO DAILY 12/10/17 Allergies/Adverse Reactions: strawberry [[place]] Allergy (Intermediate, Verified 10/13/17 13:42) RASH Review of Systems ROS unobtainable: Due to mental status Physical Exam Vital Signs: Temp Pulse Resp BP Pulse Ox 36.6 C 66 18 87/37 L 89 L 12/10/17 16:12 12/10/17 18:52 12/10/17 16:12 12/10/17 16:12 12/10/17 16:12 Intake & Output 12/09/17 12/10/17 12/11/17 06:59 06:59 06:59 Intake Total 90 767 Output Total 0 Balance 90 767 Weight 49.3 kg General appearance: PRESENT: no acute distress Neurological exam: ABSENT: alert, oriented to person, oriented to place Adult Front & Back Image: 1 - Left thigh deformity and shortening. Swelling present with early ecchymosis developing. Knee immobilizer on correctly. Moves her toes and ankle to stimuli. Good capillary refill Results Laboratory Results: 12/10/17 09:45 01/12/09/17 12/09/17 22:02 22:02 23:20 WBC RBC Hgb Hct MCV MCH MCHC RDW Plt Count Seg Neutrophils % Lymphocytes % Monocytes % Eosinophils % Basophils % Absolute Neutrophils Absolute Lymphocytes Absolute Monocytes Absolute Eosinophils Absolute Basophils Sodium Potassium Chloride Carbon Dioxide Anion Gap BUN Creatinine Est GFR ( Amer) Est GFR (Non-Af Amer) Glucose Calcium Phosphorus 5.7 H Magnesium 2.5 H Total Bilirubin AST ALT Alkaline Phosphatase Ammonia < 8.7 L Total Protein Albumin Triglycerides Cholesterol LDL Cholesterol Direct VLDL Cholesterol HDL Cholesterol Amylase 79 Lipase 67.2 TSH 1.16 Free T4 1.67 12/10/17 12/10/17 12/10/17 06:45 06:45 09:45 WBC Cancelled 6.9 RBC Cancelled 3.51 L Hgb Cancelled 10.7 L Hct Cancelled 31.9 L MCV Cancelled 91 MCH Cancelled 30.5 MCHC Cancelled 33.5 RDW Cancelled 15.5 H Plt Count Cancelled 111 L Seg Neutrophils % Cancelled 77.7 Lymphocytes % Cancelled 17.6 Monocytes % Cancelled 3.7 Eosinophils % Cancelled 0.2 Basophils % Cancelled 0.8 Absolute Neutrophils Cancelled 5.4 Absolute Lymphocytes Cancelled 1.2 Absolute Monocytes Cancelled 0.3 Absolute Eosinophils Cancelled 0.0 Absolute Basophils Cancelled 0.1 Sodium 141.3 Potassium 2.8 L* D Chloride 116 H Carbon Dioxide 10 L* Anion Gap 15 BUN 54 H Creatinine 1.40 H Est GFR ( Amer) 43 L Est GFR (Non-Af Amer) 36 L Glucose 69 L Calcium 7.4 L Phosphorus Magnesium Total Bilirubin 0.5 AST 19 ALT 25 Alkaline Phosphatase 101 Ammonia Total Protein 4.7 L Albumin 2.3 L Triglycerides 148 Cholesterol 115.35 LDL Cholesterol Direct 58 VLDL Cholesterol 30.0 HDL Cholesterol 30 L Amylase Lipase TSH Free T4 12/10/17 09:45 WBC RBC Hgb Hct MCV MCH MCHC RDW Plt Count Seg Neutrophils % Lymphocytes % Monocytes % Eosinophils % Basophils % Absolute Neutrophils Absolute Lymphocytes Absolute Monocytes Absolute Eosinophils Absolute Basophils Sodium 138.2 Potassium 3.2 L Chloride 109 H Carbon Dioxide 11 L Anion Gap 18 BUN 67 H Creatinine 1.80 H Est GFR ( Amer) 33 L Est GFR (Non-Af Amer) 27 L Glucose 187 H Calcium 9.1 Phosphorus Magnesium Total Bilirubin 0.6 AST 22 ALT 23 Alkaline Phosphatase 120 Ammonia Total Protein 5.5 L Albumin 2.9 L Triglycerides Cholesterol LDL Cholesterol Direct VLDL Cholesterol HDL Cholesterol Amylase Lipase TSH Free T4 12/09/17 12/09/17 12/09/17 22:02 22:02 22:02 Creatine Kinase 168 H CK-MB (CK-2) 0.74 Troponin I 0.037 NT-Pro-B Natriuret Pep 3940 H 12/10/17 12/10/17 06:45 06:45 Creatine Kinase 105 CK-MB (CK-2) 0.78 Troponin I 0.046 NT-Pro-B Natriuret Pep Impressions: Ankle X-Ray 12/09/17 00:00 IMPRESSION: No acute fracture dislocation. Other findings as noted above Knee X-Ray 12/09/17 00:00 IMPRESSION: Comminuted impaction type fracture of the distal femur. No other evidence for fracture is seen. Head CT 12/09/17 12:23 IMPRESSION: CHRONIC CHANGES OF ATROPHY AND MICROVASCULAR ISCHEMIA. NO ACUTE PROCESS. EVIDENCE OF ACUTE STROKE: NO. Hip X-Ray 12/09/17 12:23 IMPRESSION: STABLE CHRONIC FINDINGS. NO RADIOGRAPHIC EVIDENCE OF ACUTE INJURY. Chest X-Ray 12/10/17 00:00 IMPRESSION: 1. Right subclavian central venous catheter with tip projecting into the right IJ. Repositioning may be beneficial. Report called to Dr. Hudson at 0613 hours on 12/10/2017 Assessment & Plan - Plan Summary Plan Summary: 82-year-old female with left distal third diaphyseal femur fracture. Continue knee immobilizer and bedrest. Discussed the need to proceed with retrograde nailing of her left femur for fixation. Family members are present and are the ones who will consent for the procedure. We will place her n.p.o. and consent for surgery for tomorrow morning. The meantime will work on improving on her potassium which is 2.8 and will hydrate her as well to improve her creatinine and BUN. This was discussed with Dr. Caro
[2017-12-10 19:26] LABS: ALANINE AMINOTRANSFERASE 18 U/L (9-52); ALBUMIN 2.6 g/dL (3.5-5.0); ALKALINE PHOSPHATASE 115 U/L (38-126); ANION GAP 9 (5-19); ASPARTATE AMINO TRANSFERASE 22 U/L (14-36); BILIRUBIN,DIRECT 0.3 mg/dL (0.0-0.4); BILIRUBIN,TOTAL 0.6 mg/dL (0.2-1.3); BLOOD UREA NITROGEN 66 mg/dL (7-20); CALCIUM 8.1 mg/dL (8.4-10.2); CARBON DIOXIDE 15 mmol/L (22-30); CHLORIDE 109 mmol/L (98-107); GLUCOSE 146 mg/dL (75-110); POTASSIUM 3.1 mmol/L (3.6-5.0); SODIUM 133.3 mmol/L (137-145)
--- NOTE | 2017-12-10 21:30 | PDOC PROGRESS REPORT ---
Subjective Progress Note for:: 12/10/17 Subjective:: Patient is seen by the bedside, the plan is to have orthopedic intervention in few days Reason For Visit: FRACTURE OF DISTAL LEFT FEMUR, MILD ACUTE KIDNEY Physical Exam Vital Signs: Temp Pulse Resp BP Pulse Ox 97.8 F 61 18 98/48 L 95 12/10/17 16:12 12/10/17 20:52 12/10/17 16:12 12/10/17 21:02 12/10/17 20:52 Intake & Output 12/09/17 12/10/17 12/11/17 06:59 06:59 06:59 Intake Total 90 767 Output Total 0 Balance 90 767 Weight 49.3 kg General appearance: PRESENT: no acute distress Eye exam: PRESENT: PERRLA Respiratory exam: PRESENT: clear to auscultation kit Cardiovascular exam: PRESENT: +S1, +S2 GI/Abdominal exam: PRESENT: soft Neurological exam: PRESENT: alert, CN II-XII grossly intact Results Laboratory Results: 12/10/17 09:45 12/10/17 18:50 12/09/17 12/09/17 12/09/17 22:02 22:02 23:20 WBC RBC Hgb Hct MCV MCH MCHC RDW Plt Count Seg Neutrophils % Lymphocytes % Monocytes % Eosinophils % Basophils % Absolute Neutrophils Absolute Lymphocytes Absolute Monocytes Absolute Eosinophils Absolute Basophils Sodium Potassium Chloride Carbon Dioxide Anion Gap BUN Creatinine Est GFR ( Amer) Est GFR (Non-Af Amer) Glucose Calcium Phosphorus 5.7 H Magnesium 2.5 H Total Bilirubin AST ALT Alkaline Phosphatase Ammonia < 8.7 L Total Protein Albumin Triglycerides Cholesterol LDL Cholesterol Direct VLDL Cholesterol HDL Cholesterol Amylase 79 Lipase 67.2 TSH 1.16 Free T4 1.67 12/10/17 12/10/17 12/10/17 06:45 06:45 09:45 WBC Cancelled 6.9 RBC Cancelled 3.51 L Hgb Cancelled 10.7 L Hct Cancelled 31.9 L MCV Cancelled 91 MCH Cancelled 30.5 MCHC Cancelled 33.5 RDW Cancelled 15.5 H Plt Count Cancelled 111 L Seg Neutrophils % Cancelled 77.7 Lymphocytes % Cancelled 17.6 Monocytes % Cancelled 3.7 Eosinophils % Cancelled 0.2 Basophils % Cancelled 0.8 Absolute Neutrophils Cancelled 5.4 Absolute Lymphocytes Cancelled 1.2 Absolute Monocytes Cancelled 0.3 Absolute Eosinophils Cancelled 0.0 Absolute Basophils Cancelled 0.1 Sodium 141.3 Potassium 2.8 L* D Chloride 116 H Carbon Dioxide 10 L* Anion Gap 15 BUN 54 H Creatinine 1.40 H Est GFR ( Amer) 43 L Est GFR (Non-Af Amer) 36 L Glucose 69 L Calcium 7.4 L Phosphorus Magnesium Total Bilirubin 0.5 AST 19 ALT 25 Alkaline Phosphatase 101 Ammonia Total Protein 4.7 L Albumin 2.3 L Triglycerides 148 Cholesterol 115.35 LDL Cholesterol Direct 58 VLDL Cholesterol 30.0 HDL Cholesterol 30 L Amylase Lipase TSH Free T4 12/10/17 12/10/17 09:45 18:50 WBC RBC Hgb Hct MCV MCH MCHC RDW Plt Count Seg Neutrophils % Lymphocytes % Monocytes % Eosinophils % Basophils % Absolute Neutrophils Absolute Lymphocytes Absolute Monocytes Absolute Eosinophils Absolute Basophils Sodium 138.2 133.3 L Potassium 3.2 L 3.1 L Chloride 109 H 109 H Carbon Dioxide 11 L 15 L Anion Gap 18 9 BUN 67 H 66 H Creatinine 1.80 H 1.68 H Est GFR ( Amer) 33 L 35 L Est GFR (Non-Af Amer) 27 L 29 L Glucose 187 H 146 H Calcium 9.1 8.1 L Phosphorus Magnesium Total Bilirubin 0.6 0.6 AST 22 22 ALT 23 18 Alkaline Phosphatase 120 115 Ammonia Total Protein 5.5 L 5.0 L Albumin 2.9 L 2.6 L Triglycerides Cholesterol LDL Cholesterol Direct VLDL Cholesterol HDL Cholesterol Amylase Lipase TSH Free T4 12/09/17 12/09/17 12/09/17 22:02 22:02 22:02 Creatine Kinase 168 H CK-MB (CK-2) 0.74 Troponin I 0.037 NT-Pro-B Natriuret Pep 3940 H 12/10/17 12/10/17 06:45 06:45 Creatine Kinase 105 CK-MB (CK-2) 0.78 Troponin I 0.046 NT-Pro-B Natriuret Pep Impressions: Ankle X-Ray 12/09/17 00:00 IMPRESSION: No acute fracture dislocation. Other findings as noted above Knee X-Ray 12/09/17 00:00 IMPRESSION: Comminuted impaction type fracture of the distal femur. No other evidence for fracture is seen. Head CT 12/09/17 12:23 IMPRESSION: CHRONIC CHANGES OF ATROPHY AND MICROVASCULAR ISCHEMIA. NO ACUTE PROCESS. EVIDENCE OF ACUTE STROKE: NO. Hip X-Ray 12/09/17 12:23 IMPRESSION: STABLE CHRONIC FINDINGS. NO RADIOGRAPHIC EVIDENCE OF ACUTE INJURY. Chest X-Ray 12/10/17 00:00 IMPRESSION: 1. Right subclavian central venous catheter with tip projecting into the right IJ. Repositioning may be beneficial. Report called to Dr. 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
[2017-12-10] MEDS: POTASSI CL 20 MEQ/50 ML RIDER 20 MEQ/50 ML RTUPB IV SCH ×2 (21:52→23:45)
[2017-12-10] MEDS: ATORVASTATIN CALCIUM 10 MG TABLET PO SCH (21:53)
[2017-12-10] MEDS ORDERED: (PENDING PHARMACY ID) (Rosuvastatin Calcium [Crestor 5 Mg Tablet] 5 MG) PO SCH (22:00)
[2017-12-11] MEDS: NORMAL SALINE INJ/PF 0.9% 10 ML SDV IV SCH ×3 (05:14→22:18)
[2017-12-11] MEDS: SACUBITRIL/VALSARTAN 49 MG/51 MG TABLET PO SCH ×2 (05:15→18:30)
[2017-12-11] MEDS: LANSOPRAZOLE 15 MG TAB.RAP.DR PO SCH (05:15)
[2017-12-11] MEDS: GABAPENTIN 300 MG CAPSULE PO SCH ×3 (05:15→22:16)
[2017-12-11 08:12] LABS: ALANINE AMINOTRANSFERASE 17 U/L (9-52); ALBUMIN 2.9 g/dL (3.5-5.0); ALKALINE PHOSPHATASE 126 U/L (38-126); ANION GAP 13 (5-19); ASPARTATE AMINO TRANSFERASE 23 U/L (14-36); BILIRUBIN,DIRECT 0.5 mg/dL (0.0-0.4); BILIRUBIN,TOTAL 0.6 mg/dL (0.2-1.3); BLOOD UREA NITROGEN 54 mg/dL (7-20); CALCIUM 8.7 mg/dL (8.4-10.2); CARBON DIOXIDE 15 mmol/L (22-30); CHLORIDE 115 mmol/L (98-107); GLUCOSE 90 mg/dL (75-110); SODIUM 143.2 mmol/L (137-145); TOTAL PROTEIN 5.7 g/dL (6.3-8.2)
[2017-12-11] MEDS: METOPROLOL SUCCINATE 50 MG TAB.SR.24H PO SCH ×2 (10:26→22:16)
[2017-12-11] MEDS: ISOSORBIDE MONONITRATE 30 MG TAB.ER.24H PO SCH (10:27)
[2017-12-11] MEDS: DONEPEZIL HCL 5 MG TABLET PO SCH (10:27)
[2017-12-11] MEDS: POTASSIUM CHLORIDE 10 MEQ TABLET.SA PO SCH (10:28)
[2017-12-11] MEDS: APIXABAN 2.5 MG TABLET PO SCH ×2 (10:28→18:09)
[2017-12-11] MEDS: HYDROCODONE/ACETAMINOPHEN 10-325 MG TABLET PO PRN ×2 (11:34→22:17)
--- NOTE | 2017-12-11 17:24 | PDOC PROGRESS REPORT ---
Subjective Progress Note for:: 12/11/17 Subjective:: Patient was seen by the bedside the plan is to have orthopedic procedure tomorrow, she has hypoalbuminemia, most likely due to poor intake/malnutrition Reason For Visit: FRACTURE OF DISTAL LEFT FEMUR, MILD ACUTE KIDNEY Physical Exam Vital Signs: Temp Pulse Resp BP Pulse Ox 97.5 F 61 22 H 106/79 94 12/11/17 07:14 12/11/17 14:00 12/11/17 07:14 12/11/17 07:14 12/11/17 07:14 Intake & Output 12/10/17 12/11/17 12/12/17 06:59 06:59 06:59 Intake Total 90 1787 100 Output Total 0 0 Balance 90 1787 100 Weight 49.3 kg 53.3 kg General appearance: PRESENT: no acute distress Eye exam: PRESENT: PERRLA Respiratory exam: PRESENT: clear to auscultation kit Cardiovascular exam: PRESENT: +S1, +S2 GI/Abdominal exam: PRESENT: soft Extremities exam: PRESENT: other - Swelling of the left leg Results Laboratory Results: 12/10/17 09:45 12/11/17 07:30 12/10/17 12/11/17 18:50 07:30 Sodium 133.3 L 143.2 Potassium 3.1 L 4.0 Chloride 109 H 115 H Carbon Dioxide 15 L 15 L Anion Gap 9 13 BUN 66 H 54 H Creatinine 1.68 H 1.32 H Est GFR ( Amer) 35 L 47 L Est GFR (Non-Af Amer) 29 L 38 L Glucose 146 H 90 Calcium 8.1 L 8.7 Total Bilirubin 0.6 0.6 AST 22 23 ALT 18 17 Alkaline Phosphatase 115 126 Total Protein 5.0 L 5.7 L Albumin 2.6 L 2.9 L 12/09/17 12/09/17 12/09/17 22:02 22:02 22:02 Creatine Kinase 168 H CK-MB (CK-2) 0.74 Troponin I 0.037 NT-Pro-B Natriuret Pep 3940 H 12/10/17 12/10/17 06:45 06:45 Creatine Kinase 105 CK-MB (CK-2) 0.78 Troponin I 0.046 NT-Pro-B Natriuret Pep Impressions: Ankle X-Ray 12/09/17 00:00 IMPRESSION: No acute fracture dislocation. Other findings as noted above Knee X-Ray 12/09/17 00:00 IMPRESSION: Comminuted impaction type fracture of the distal femur. No other evidence for fracture is seen. Head CT 12/09/17 12:23 IMPRESSION: CHRONIC CHANGES OF ATROPHY AND MICROVASCULAR ISCHEMIA. NO ACUTE PROCESS. EVIDENCE OF ACUTE STROKE: NO. Hip X-Ray 12/09/17 12:23 IMPRESSION: STABLE CHRONIC FINDINGS. NO RADIOGRAPHIC EVIDENCE OF ACUTE INJURY. Chest X-Ray 12/10/17 00:00 IMPRESSION: 1. Right subclavian central venous catheter with tip projecting into the right IJ. Repositioning may be beneficial. Report called to Dr. 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
[2017-12-11] MEDS: ATORVASTATIN CALCIUM 10 MG TABLET PO SCH (22:16)
[2017-12-12 04:44] LABS: ABSOLUTE EOSINOPHILS # (AUTO) 0.1 10^3/uL (0.0-0.6); ABSOLUTE LYMPHOCYTES (AUTO) 1.1 10^3/uL (0.5-4.7); ABSOLUTE MONOCYTES (AUTO) 0.4 10^3/uL (0.1-1.4); ABSOLUTE NEUT (AUTO) 6.2 10^3/uL (1.7-8.2); BASOPHILS % (AUTO) 0.5 % (0-2); EOSINOPHILS % (AUTO) 0.7 % (0-6); HEMATOCRIT 31.7 % (36.0-47.0); HEMOGLOBIN 10.5 g/dL (12.0-15.5); LYMPHOCYTES % (AUTO) 14.1 % (13-45); MEAN CORPUSCULAR HEMOGLOBIN 30.2 pg (27.0-33.4); MEAN CORPUSCULAR HGB CONC 33.3 g/dL (32.0-36.0); MEAN CORPUSCULAR VOLUME 91 fl (80-97); MONOCYTES % (AUTO) 5.4 % (3-13); RED BLOOD COUNT 3.49 10^6/uL (3.72-5.28); RED CELL DISTRIBUTION WIDTH 15.8 % (11.5-14.0); SEGMENTED NEUTROPHILS % (AUTO) 79.3 % (42-78); TOTAL CELLS COUNTED % (AUTO) 100 %; WHITE BLOOD COUNT 7.8 10^3/uL (4.0-10.5)
[2017-12-12 04:46] LABS: PLATELET COUNT 96 10^3/uL (150-450)
[2017-12-12 04:57] LABS: ALANINE AMINOTRANSFERASE 16 U/L (9-52); ALBUMIN 2.6 g/dL (3.5-5.0); ALKALINE PHOSPHATASE 108 U/L (38-126); ANION GAP 8 (5-19); ASPARTATE AMINO TRANSFERASE 26 U/L (14-36); BILIRUBIN,DIRECT 0.3 mg/dL (0.0-0.4); BILIRUBIN,TOTAL 0.8 mg/dL (0.2-1.3); CALCIUM 9.1 mg/dL (8.4-10.2); CARBON DIOXIDE 17 mmol/L (22-30); CHLORIDE 119 mmol/L (98-107); GLUCOSE 100 mg/dL (75-110); POTASSIUM 4.1 mmol/L (3.6-5.0); SODIUM 143.6 mmol/L (137-145); TOTAL PROTEIN 5.3 g/dL (6.3-8.2)
[2017-12-12 05:16] LABS: BLOOD UREA NITROGEN 31 mg/dL (7-20)
[2017-12-12] MEDS: NORMAL SALINE INJ/PF 0.9% 10 ML SDV IV SCH ×3 (06:16→21:51)
[2017-12-12] MEDS: GABAPENTIN 300 MG CAPSULE PO SCH ×3 (06:17→21:47)
[2017-12-12] MEDS: LANSOPRAZOLE 15 MG TAB.RAP.DR PO SCH (06:17)
[2017-12-12] MEDS: SACUBITRIL/VALSARTAN 49 MG/51 MG TABLET PO SCH ×2 (06:17→18:14)
[2017-12-12] MEDS ORDERED: MIDAZOLAM 2 MG/2 ML INJ ONE (07:23)
[2017-12-12] MEDS ORDERED: KETAMINE HCL INJ 500 MG/10 ML VIAL ONE (07:23)
[2017-12-12] MEDS ORDERED: FENTANYL CITRATE INJ/PF 100 MCG/2 ML AMPUL ONE ×2 (07:23→11:27)
[2017-12-12] MEDS ORDERED: DEXMEDETOMIDINE INJ 80 MCG/20 ML VIAL IV ONE (07:24)
[2017-12-12] MEDS ORDERED: EPHEDRINE SULFATE INJ 50 MG/1 ML AMPULE ONE (07:24)
[2017-12-12] MEDS ORDERED: PROPOFOL INJ 200 MG/20 ML VIAL IV ONE (07:24)
[2017-12-12] MEDS ORDERED: LIDOCAINE 2% INJ-PF (20 MG/ML) 10 ML AMPUL ONE (07:24)
[2017-12-12] MEDS ORDERED: ACETAMINOPHEN 100 ML IV ONE (07:24)
[2017-12-12] MEDS ORDERED: CEFAZOLIN INJ 1 GM VIAL ONE (08:53)
[2017-12-12] MEDS ORDERED: PROMETHAZINE HCL INJ 25 MG/1 ML VIAL IV PRN (09:24)
[2017-12-12] MEDS ORDERED: FENTANYL CITRATE INJ/PF 100 MCG/2 ML AMPUL IV PRN (09:24)
[2017-12-12] MEDS ORDERED: OXYCODONE-ACETAMINOPHEN 5-325 MG TABLET PO PRN (09:24)
[2017-12-12] MEDS ORDERED: MEPERIDINE HCL/PF INJ 25 MG/1 ML DISP.SYRIN IV PRN (09:24)
[2017-12-12] MEDS ORDERED: ONDANSETRON HCL INJ/PF 4 MG/2 ML SDV IV PRN ×2 (09:24→13:13)
[2017-12-12] MEDS ORDERED: DIPHENHYDRAMINE HCL 50 MG/ML VIAL IV PRN (09:24)
[2017-12-12 10:48] LABS: APPEARANCE,URINE CLOUDY; BILIRUBIN,URINE NEGATIVE (NEGATIVE); COLOR,URINE YELLOW; GLUCOSE, URINE NEGATIVE (NEGATIVE); KETONES,URINE NEGATIVE (NEGATIVE); LEUKOCYTE ESTERASE,URINE LARGE (NEGATIVE); NITRITE,URINE NEGATIVE (NEGATIVE); PROTEIN,URINE 30 mg/dL (NEGATIVE); URINE SPECIFIC GRAVITY 1.013; UROBILINOGEN,URINE NEGATIVE mg/dL (<2.0)
[2017-12-12] MEDS: FENTANYL CITRATE INJ/PF 100 MCG/2 ML AMPUL IV PRN ×2 (11:20→11:30)
--- NOTE | 2017-12-12 11:43 | RADIOLOGY REPORT (SQ) ---
EXAM DESCRIPTION: NO CHG FLUORO; FEMUR LEFT COMPLETED DATE/TIME: 12/12/2017 11:31 am REASON FOR STUDY: ORIF LT DISTAL FEMUR COMPARISON: None. FLUOROSCOPY TIME: 1.9 minutes 11 images saved to PACS. TECHNIQUE: Intra-operative images acquired during surgical procedure to evaluate progress. NUMBER OF IMAGES: 11 LIMITATIONS: None. FINDINGS: Gui and screw fixation of distal femur fracture. Alignment is near anatomic. IMPRESSION: IMAGE(S) OBTAINED DURING PROCEDURE. COMMENT: Quality ID [id number]: Final reports for procedures using fluoroscopy that document radiation exp osure indices, or exposure time and number of fluorographic images (if radiation exposure indices are not available) Please consult full operative report of the attending physician for description of the procedure. TECHNICAL DOCUMENTATION: JOB ID: [id number] [employer]- All Rights Reserved
--- NOTE | 2017-12-12 11:43 | RADIOLOGY REPORT (SQ) ---
EXAM DESCRIPTION: NO CHG FLUORO; FEMUR LEFT COMPLETED DATE/TIME: 12/12/2017 11:31 am REASON FOR STUDY: ORIF LT DISTAL FEMUR COMPARISON: None. FLUOROSCOPY TIME: 1.9 minutes 11 images saved to PACS. TECHNIQUE: Intra-operative images acquired during surgical procedure to evaluate progress. NUMBER OF IMAGES: 11 LIMITATIONS: None. FINDINGS: Gui and screw fixation of distal femur fracture. Alignment is near anatomic. IMPRESSION: IMAGE(S) OBTAINED DURING PROCEDURE. COMMENT: Quality ID [id number]: Final reports for procedures using fluoroscopy that document radiation exp osure indices, or exposure time and number of fluorographic images (if radiation exposure indices are not available) Please consult full operative report of the attending physician for description of the procedure. TECHNICAL DOCUMENTATION: JOB ID: [id number] [employer]- All Rights Reserved
[2017-12-12] MEDS ORDERED: MEPERIDINE HCL/PF INJ 25 MG/1 ML DISP.SYRIN ONE (12:20)
--- NOTE | 2017-12-12 12:20 | PDOC PROGRESS REPORT ---
Subjective Progress Note for:: 12/11/17 Subjective:: Patient resting in bed with knee immobilizer on. Reason For Visit: FRACTURE OF DISTAL LEFT FEMUR, MILD ACUTE KIDNEY Physical Exam Vital Signs: Temp Pulse Resp BP Pulse Ox 36.6 C 60 16 166/52 H 99 12/12/17 03:22 12/12/17 07:00 12/12/17 03:22 12/12/17 03:22 12/12/17 03:22 Intake & Output 12/11/17 12/12/17 12/13/17 06:59 06:59 06:59 Intake Total 1787 1272 100 Output Total 0 100 Balance 1787 1272 0 Weight 53.3 kg 54.3 kg Adult Front & Back Image: 1 - Deformity of the left femur. Pain with any attempted motion. Swelling with no ecchymosis. Results Laboratory Results: 12/12/17 04:20 12/12/17 04:20 12/12/17 12/12/17 12/12/17 04:20 04:20 09:46 WBC 7.8 RBC 3.49 L Hgb 10.5 L Hct 31.7 L MCV 91 MCH 30.2 MCHC 33.3 RDW 15.8 H Plt Count 96 L Seg Neutrophils % 79.3 H Lymphocytes % 14.1 Monocytes % 5.4 Eosinophils % 0.7 Basophils % 0.5 Absolute Neutrophils 6.2 Absolute Lymphocytes 1.1 Absolute Monocytes 0.4 Absolute Eosinophils 0.1 Absolute Basophils 0.0 Sodium 143.6 Potassium 4.1 Chloride 119 H Carbon Dioxide 17 L Anion Gap 8 BUN 31 H D Creatinine 0.80 Est GFR ( Amer) > 60 Est GFR (Non-Af Amer) > 60 Glucose 100 Calcium 9.1 Total Bilirubin 0.8 AST 26 ALT 16 Alkaline Phosphatase 108 Total Protein 5.3 L Albumin 2.6 L Urine Color YELLOW Urine Appearance CLOUDY Urine pH 5.0 Ur Specific [place] 1.013 Urine Protein 30 H Urine Glucose (UA) NEGATIVE Urine Ketones NEGATIVE Urine Blood LARGE H Urine Nitrite NEGATIVE Ur Leukocyte Esterase LARGE H Urine WBC (Auto) >182 Urine RBC (Auto) 180 12/09/17 12/09/17 12/09/17 22:02 22:02 22:02 Creatine Kinase 168 H CK-MB (CK-2) 0.74 Troponin I 0.037 NT-Pro-B Natriuret Pep 3940 H 12/10/17 12/10/17 06:45 06:45 Creatine Kinase 105 CK-MB (CK-2) 0.78 Troponin I 0.046 NT-Pro-B Natriuret Pep Impressions: Ankle X-Ray 12/09/17 00:00 IMPRESSION: No acute fracture dislocation. Other findings as noted above Knee X-Ray 12/09/17 00:00 IMPRESSION: Comminuted impaction type fracture of the distal femur. No other evidence for fracture is seen. Head CT 12/09/17 12:23 IMPRESSION: CHRONIC CHANGES OF ATROPHY AND MICROVASCULAR ISCHEMIA. NO ACUTE PROCESS. EVIDENCE OF ACUTE STROKE: NO. Hip X-Ray 12/09/17 12:23 IMPRESSION: STABLE CHRONIC FINDINGS. NO RADIOGRAPHIC EVIDENCE OF ACUTE INJURY. Chest X-Ray 12/10/17 00:00 IMPRESSION: 1. Right subclavian central venous catheter with tip projecting into the right IJ. Repositioning may be beneficial. Report called to Dr. Hudson at 0613 hours on 12/10/2017 Femur X-Ray 12/12/17 08:30 IMPRESSION: IMAGE(S) OBTAINED DURING PROCEDURE. Fluoroscopy 12/12/17 08:30 IMPRESSION: IMAGE(S) OBTAINED DURING PROCEDURE. Assessment & Plan - Plan Summary Plan Summary: 82-year-old female with left distal third femur fracture. Surgery was delayed until tomorrow. Anesthesia will like to improve and the potassium and hydration. The meantime keep her resting in bed with knee immobilizer on. N.p.o. after midnight.
--- NOTE | 2017-12-12 12:27 | Operative Report ---
Operative Report DATE OF SURGERY: 12/12/17 PREOPERATIVE DIAGNOSIS: Left distal third femur fracture POSTOPERATIVE DIAGNOSIS: Same OPERATION: Retrograde nailing of left femur fracture SURGEON: HUMBERTO VALDEZ ANESTHESIA: GA TISSUE REMOVED OR ALTERED: None COMPLICATIONS: None ESTIMATED BLOOD LOSS: 100 mL INTRAOPERATIVE FINDINGS: As above PROCEDURE: Patient was brought to the operating room after receiving antibiotics. Patient received a spinal and then was placed in supine position. The left lower extremity was prepped and draped in a normal sterile surgical fashion. Timeout was done identifying the left side is a correct site. A medial parapatellar approach was done to the knee. Able to retract the patella laterally this allowed for visualization of the actual femur and trochlea. I was able place the guidepin and with the use of C-arm place in the correct position. Used the opening reamer to allow for accessand application of the guidepin. Long guidewire was applied and passed to the bone up to the proximal aspect of the femur. This was confirmed in both the AP and lateral C arm pictures. I measured to be 340 mm in length. We went with the largest diameter 14 mm diameter. We reamed to 15 and had no chatter 14mm is the largest now that the secondary social studies teacher. We applied the nail without issues. We used the targeting guide and was able to place 3 screws in the proximal fragment. Technique was using a 10 blade and then hemostat to bluntly dissect down to the bone. We placed the targeting guide with the drilled and measured appropriately and placed the screws of appropriate screws. C-arm pictures shows a application of the screws and length. Proximally we freehanded the and drilled for the 2 proximal holes. The most proximal one was the oblong hole and the screw unfortunately broke through the cortex secured the nail to the distal cortex. I was able to then drilled the distal proximal hole and placing proper screw and had bicortical fixation. AP and lateral pictures showed the screws through the nail and appropriate length. I did not go removing the most proximal screw. Did not want to further evaluate the bone. I felt that the fixation and nail had screw and distal cortex was suffice. Especially with the stress being taken away from the second screw. AP and lateral pictures were taken of the fixation and the fracture reduction. Bulb irrigation was used to clean the incisions and then 0 Vicryl was used to close the arthrotomy done. 2-0 Vicryl was used to approximate subcutaneous tissue and suyapa for skin I used 2-0 Vicryl for the screw holes and suyapa for skin. Extremity was cleaned off with weight sponge and then dried off nicely. Xeroform and 4 x 4 dressing and ABD pads were applied and overwrapped with a soft roll. Drapes were removed and the patient was then transferred to PACU in stable condition.
[2017-12-12] MEDS ORDERED: ZOLEDRONIC ACID 5 MG/100 ML BOTTLE IV ONE (14:00)
[2017-12-12] MEDS: DONEPEZIL HCL 5 MG TABLET PO SCH (14:47)
[2017-12-12] MEDS: APIXABAN 2.5 MG TABLET PO SCH ×2 (14:47→18:10)
[2017-12-12] MEDS: METOPROLOL SUCCINATE 50 MG TAB.SR.24H PO SCH ×2 (14:47→21:47)
[2017-12-12] MEDS: POTASSIUM CHLORIDE 10 MEQ TABLET.SA PO SCH (14:47)
[2017-12-12] MEDS: ISOSORBIDE MONONITRATE 30 MG TAB.ER.24H PO SCH (14:47)
[2017-12-12] MEDS: OXYCODONE HCL IR 5 MG TABLET PO PRN ×2 (15:11→19:50)
--- NOTE | 2017-12-12 16:44 | PDOC PROGRESS REPORT ---
Subjective Progress Note for:: 12/12/17 Subjective:: She had ORIF done today on the left femur she was seen by the bedside, she also had IV Reclast today Reason For Visit: FRACTURE OF DISTAL LEFT FEMUR, MILD ACUTE KIDNEY Physical Exam Vital Signs: Temp Pulse Resp BP Pulse Ox 98 F 79 20 115/79 100 12/12/17 12:33 12/12/17 14:00 12/12/17 12:33 12/12/17 12:33 12/12/17 12:33 Intake & Output 12/11/17 12/12/17 12/13/17 06:59 06:59 06:59 Intake Total 1787 1272 2994 Output Total 0 650 Balance 1787 1272 2344 Weight 53.3 kg 54.3 kg General appearance: PRESENT: no acute distress Eye exam: PRESENT: PERRLA Respiratory exam: PRESENT: clear to auscultation kit Cardiovascular exam: PRESENT: +S1, +S2 GI/Abdominal exam: PRESENT: soft Neurological exam: PRESENT: alert Results Laboratory Results: 12/12/17 04:20 12/12/17 04:20 12/12/17 12/12/17 12/12/17 04:20 04:20 09:46 WBC 7.8 RBC 3.49 L Hgb 10.5 L Hct 31.7 L MCV 91 MCH 30.2 MCHC 33.3 RDW 15.8 H Plt Count 96 L Seg Neutrophils % 79.3 H Lymphocytes % 14.1 Monocytes % 5.4 Eosinophils % 0.7 Basophils % 0.5 Absolute Neutrophils 6.2 Absolute Lymphocytes 1.1 Absolute Monocytes 0.4 Absolute Eosinophils 0.1 Absolute Basophils 0.0 Sodium 143.6 Potassium 4.1 Chloride 119 H Carbon Dioxide 17 L Anion Gap 8 BUN 31 H D Creatinine 0.80 Est GFR ( Amer) > 60 Est GFR (Non-Af Amer) > 60 Glucose 100 Calcium 9.1 Total Bilirubin 0.8 AST 26 ALT 16 Alkaline Phosphatase 108 Total Protein 5.3 L Albumin 2.6 L Urine Color YELLOW Urine Appearance CLOUDY Urine pH 5.0 Ur Specific [place] 1.013 Urine Protein 30 H Urine Glucose (UA) NEGATIVE Urine Ketones NEGATIVE Urine Blood LARGE H Urine Nitrite NEGATIVE Ur Leukocyte Esterase LARGE H Urine WBC (Auto) >182 Urine RBC (Auto) 180 12/09/17 12/09/17 12/09/17 22:02 22:02 22:02 Creatine Kinase 168 H CK-MB (CK-2) 0.74 Troponin I 0.037 NT-Pro-B Natriuret Pep 3940 H 12/10/17 12/10/17 06:45 06:45 Creatine Kinase 105 CK-MB (CK-2) 0.78 Troponin I 0.046 NT-Pro-B Natriuret Pep Impressions: Ankle X-Ray 12/09/17 00:00 IMPRESSION: No acute fracture dislocation. Other findings as noted above Knee X-Ray 12/09/17 00:00 IMPRESSION: Comminuted impaction type fracture of the distal femur. No other evidence for fracture is seen. Head CT 12/09/17 12:23 IMPRESSION: CHRONIC CHANGES OF ATROPHY AND MICROVASCULAR ISCHEMIA. NO ACUTE PROCESS. EVIDENCE OF ACUTE STROKE: NO. Hip X-Ray 12/09/17 12:23 IMPRESSION: STABLE CHRONIC FINDINGS. NO RADIOGRAPHIC EVIDENCE OF ACUTE INJURY. Chest X-Ray 12/10/17 00:00 IMPRESSION: 1. Right subclavian central venous catheter with tip projecting into the right IJ. Repositioning may be beneficial. Report called to Dr. Hudson at 0613 hours on 12/10/2017 Femur X-Ray 12/12/17 08:30 IMPRESSION: IMAGE(S) OBTAINED DURING PROCEDURE. Fluoroscopy 12/12/17 08:30 IMPRESSION: IMAGE(S) OBTAINED DURING PROCEDURE. 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
[2017-12-12] MEDS: CEFAZOLIN 2 GM/D5W RTU 2 GM/50 ML RTUPB IV SCH (18:14)
[2017-12-12] MEDS: RINGERS SOLUTION,LACTATED 1,000 ML IV PRN ×2 (18:22→21:46)
[2017-12-12] MEDS: ATORVASTATIN CALCIUM 10 MG TABLET PO SCH (21:47)
[2017-12-13] MEDS: OXYCODONE HCL IR 5 MG TABLET PO PRN ×4 (00:02→23:13)
[2017-12-13] MEDS: CEFAZOLIN 2 GM/D5W RTU 2 GM/50 ML RTUPB IV SCH (02:18)
[2017-12-13] MEDS: SACUBITRIL/VALSARTAN 49 MG/51 MG TABLET PO SCH ×2 (05:18→17:41)
[2017-12-13] MEDS: NORMAL SALINE INJ/PF 0.9% 10 ML SDV IV SCH ×3 (05:19→23:12)
[2017-12-13] MEDS: GABAPENTIN 300 MG CAPSULE PO SCH ×3 (05:19→23:09)
[2017-12-13] MEDS: LANSOPRAZOLE 15 MG TAB.RAP.DR PO SCH (05:19)
[2017-12-13] MEDS: RINGERS SOLUTION,LACTATED 1,000 ML IV PRN (05:20)
[2017-12-13 05:38] LABS: ANION GAP 6 (5-19); BLOOD UREA NITROGEN 14 mg/dL (7-20); CALCIUM 8.1 mg/dL (8.4-10.2); CARBON DIOXIDE 20 mmol/L (22-30); CHLORIDE 117 mmol/L (98-107); GLUCOSE 105 mg/dL (75-110); POTASSIUM 3.2 mmol/L (3.6-5.0); SODIUM 142.9 mmol/L (137-145)
[2017-12-13 06:36] LABS: ABSOLUTE MONOCYTES (AUTO) 0.6 10^3/uL (0.1-1.4); ABSOLUTE NEUT (AUTO) 6.8 10^3/uL (1.7-8.2); BASOPHILS % (AUTO) 0.3 % (0-2); EOSINOPHILS % (AUTO) 0.4 % (0-6); HEMATOCRIT 21.3 % (36.0-47.0); LYMPHOCYTES % (AUTO) 12.1 % (13-45); MEAN CORPUSCULAR HEMOGLOBIN 30.5 pg (27.0-33.4); MEAN CORPUSCULAR HGB CONC 33.5 g/dL (32.0-36.0); MEAN CORPUSCULAR VOLUME 91 fl (80-97); MONOCYTES % (AUTO) 7.4 % (3-13); RED BLOOD COUNT 2.34 10^6/uL (3.72-5.28); RED CELL DISTRIBUTION WIDTH 15.6 % (11.5-14.0); SEGMENTED NEUTROPHILS % (AUTO) 79.8 % (42-78); TOTAL CELLS COUNTED % (AUTO) 100 %; WHITE BLOOD COUNT 8.5 10^3/uL (4.0-10.5)
[2017-12-13 06:41] LABS: PLATELET COUNT 92 10^3/uL (150-450)
[2017-12-13 07:05] LABS: HEMOGLOBIN 7.1 g/dL (12.0-15.5)
[2017-12-13] MEDS ORDERED: NORMAL SALINE 250 ML IV PRN ×2 (07:42)
[2017-12-13] MEDS: APIXABAN 2.5 MG TABLET PO SCH ×2 (08:28→17:42)
[2017-12-13] MEDS ORDERED: POTASSIUM CHLORIDE 10 MEQ TABLET.SA PO ONE (08:30)
[2017-12-13] MEDS: ISOSORBIDE MONONITRATE 30 MG TAB.ER.24H PO SCH (09:49)
[2017-12-13] MEDS: POTASSIUM CHLORIDE 10 MEQ TABLET.SA PO SCH (09:49)
[2017-12-13] MEDS: DONEPEZIL HCL 5 MG TABLET PO SCH (09:50)
[2017-12-13] MEDS: METOPROLOL SUCCINATE 50 MG TAB.SR.24H PO SCH ×2 (09:50→23:09)
--- NOTE | 2017-12-13 12:43 | PDOC PROGRESS REPORT ---
Subjective Progress Note for:: 12/13/17 Subjective:: Patient drousy second to narcotic use. Currently receiving blood transfusion. Reason For Visit: FRACTURE OF DISTAL LEFT FEMUR, MILD ACUTE KIDNEY Physical Exam Vital Signs: Temp Pulse Resp BP Pulse Ox 36.3 C 89 17 97/47 L 96 12/13/17 12:33 12/13/17 12:33 12/13/17 12:33 12/13/17 12:33 12/13/17 12:33 Intake & Output 12/12/17 12/13/17 12/14/17 06:59 06:59 06:59 Intake Total 1272 5828 0 Output Total 0 1350 Balance 1272 4478 0 Weight 54.3 kg 60.8 kg General appearance: PRESENT: no acute distress Adult Front & Back Image: 1 - KI in place, dressing dry clean and intact. NVI distally Results Laboratory Results: 12/13/17 05:14 12/13/17 05:14 12/13/17 12/13/17 12/13/17 04:52 05:14 05:14 WBC Cancelled 8.5 RBC Cancelled 2.34 L Hgb Cancelled 7.1 L D Hct Cancelled 21.3 L MCV Cancelled 91 MCH Cancelled 30.5 MCHC Cancelled 33.5 RDW Cancelled 15.6 H Plt Count Cancelled 92 L Seg Neutrophils % Cancelled 79.8 H Lymphocytes % Cancelled 12.1 L Monocytes % Cancelled 7.4 Eosinophils % Cancelled 0.4 Basophils % Cancelled 0.3 Absolute Neutrophils Cancelled 6.8 Absolute Lymphocytes Cancelled 1.0 Absolute Monocytes Cancelled 0.6 Absolute Eosinophils Cancelled 0.0 Absolute Basophils Cancelled 0.0 Sodium 142.9 Potassium 3.2 L Chloride 117 H Carbon Dioxide 20 L Anion Gap 6 BUN 14 Creatinine 0.60 Est GFR ( Amer) > 60 Est GFR (Non-Af Amer) > 60 Glucose 105 Calcium 8.1 L Blood Type Antibody Screen 12/13/17 10:12 WBC RBC Hgb Hct MCV MCH MCHC RDW Plt Count Seg Neutrophils % Lymphocytes % Monocytes % Eosinophils % Basophils % Absolute Neutrophils Absolute Lymphocytes Absolute Monocytes Absolute Eosinophils Absolute Basophils Sodium Potassium Chloride Carbon Dioxide Anion Gap BUN Creatinine Est GFR ( Amer) Est GFR (Non-Af Amer) Glucose Calcium Blood Type O POSITIVE Antibody Screen NEGATIVE 12/09/17 12/09/17 12/09/17 22:02 22:02 22:02 Creatine Kinase 168 H CK-MB (CK-2) 0.74 Troponin I 0.037 NT-Pro-B Natriuret Pep 3940 H 12/10/17 12/10/17 06:45 06:45 Creatine Kinase 105 CK-MB (CK-2) 0.78 Troponin I 0.046 NT-Pro-B Natriuret Pep Impressions: Ankle X-Ray 12/09/17 00:00 IMPRESSION: No acute fracture dislocation. Other findings as noted above Knee X-Ray 12/09/17 00:00 IMPRESSION: Comminuted impaction type fracture of the distal femur. No other evidence for fracture is seen. Head CT 12/09/17 12:23 IMPRESSION: CHRONIC CHANGES OF ATROPHY AND MICROVASCULAR ISCHEMIA. NO ACUTE PROCESS. EVIDENCE OF ACUTE STROKE: NO. Hip X-Ray 12/09/17 12:23 IMPRESSION: STABLE CHRONIC FINDINGS. NO RADIOGRAPHIC EVIDENCE OF ACUTE INJURY. Chest X-Ray 12/10/17 00:00 IMPRESSION: 1. Right subclavian central venous catheter with tip projecting into the right IJ. Repositioning may be beneficial. Report called to Dr. Hudson at 0613 hours on 12/10/2017 Femur X-Ray 12/12/17 08:30 IMPRESSION: IMAGE(S) OBTAINED DURING PROCEDURE. Fluoroscopy 12/12/17 08:30 IMPRESSION: IMAGE(S) OBTAINED DURING PROCEDURE. Assessment & Plan - Diagnosis (1) Closed fracture of distal end of femur Qualifiers: Encounter type: initial encounter Fracture morphology: unspecified fracture morphology Laterality: left Qualified Code(s): S72.402A - Unspecified fracture of lower end of left femur, initial encounter for closed fracture Is this a current diagnosis for this admission?: Yes Plan: POD 1 from retrograde nailing left femur. NWB LLE PT/OT Eliquis monitor H/H after transfusion
[2017-12-13] MEDS: NORMAL SALINE 1000 ML 1,000 ML IV PRN (20:40)
--- NOTE | 2017-12-13 21:09 | PDOC PROGRESS REPORT ---
Subjective Progress Note for:: 12/13/17 Subjective:: Patient was transfused with red blood cells today, she dropped her hematocrit, the estimated blood loss after orthopedic procedure was 100 ml , the combination of dilation and acute blood loss is responsible for the drop of the hematocrit Reason For Visit: FRACTURE OF DISTAL LEFT FEMUR, MILD ACUTE KIDNEY Physical Exam Vital Signs: Temp Pulse Resp BP Pulse Ox 98.7 F 77 18 111/51 L 100 12/13/17 19:47 12/13/17 19:47 12/13/17 19:47 12/13/17 19:47 12/13/17 19:47 Intake & Output 12/12/17 12/13/17 12/14/17 06:59 06:59 06:59 Intake Total 1272 5828 1525 Output Total 0 1350 150 Balance 1272 4478 1375 Weight 54.3 kg 60.8 kg General appearance: PRESENT: no acute distress Respiratory exam: PRESENT: clear to auscultation kit Cardiovascular exam: PRESENT: +S1, +S2 GI/Abdominal exam: PRESENT: soft Neurological exam: PRESENT: alert Results Laboratory Results: 12/13/17 05:14 12/13/17 05:14 12/13/17 12/13/17 12/13/17 04:52 05:14 05:14 WBC Cancelled 8.5 RBC Cancelled 2.34 L Hgb Cancelled 7.1 L D Hct Cancelled 21.3 L MCV Cancelled 91 MCH Cancelled 30.5 MCHC Cancelled 33.5 RDW Cancelled 15.6 H Plt Count Cancelled 92 L Seg Neutrophils % Cancelled 79.8 H Lymphocytes % Cancelled 12.1 L Monocytes % Cancelled 7.4 Eosinophils % Cancelled 0.4 Basophils % Cancelled 0.3 Absolute Neutrophils Cancelled 6.8 Absolute Lymphocytes Cancelled 1.0 Absolute Monocytes Cancelled 0.6 Absolute Eosinophils Cancelled 0.0 Absolute Basophils Cancelled 0.0 Sodium 142.9 Potassium 3.2 L Chloride 117 H Carbon Dioxide 20 L Anion Gap 6 BUN 14 Creatinine 0.60 Est GFR ( Amer) > 60 Est GFR (Non-Af Amer) > 60 Glucose 105 Calcium 8.1 L Blood Type Antibody Screen 12/13/17 10:12 WBC RBC Hgb Hct MCV MCH MCHC RDW Plt Count Seg Neutrophils % Lymphocytes % Monocytes % Eosinophils % Basophils % Absolute Neutrophils Absolute Lymphocytes Absolute Monocytes Absolute Eosinophils Absolute Basophils Sodium Potassium Chloride Carbon Dioxide Anion Gap BUN Creatinine Est GFR ( Amer) Est GFR (Non-Af Amer) Glucose Calcium Blood Type O POSITIVE Antibody Screen NEGATIVE 12/09/17 12/09/17 12/09/17 22:02 22:02 22:02 Creatine Kinase 168 H CK-MB (CK-2) 0.74 Troponin I 0.037 NT-Pro-B Natriuret Pep 3940 H 12/10/17 12/10/17 06:45 06:45 Creatine Kinase 105 CK-MB (CK-2) 0.78 Troponin I 0.046 NT-Pro-B Natriuret Pep Impressions: Ankle X-Ray 12/09/17 00:00 IMPRESSION: No acute fracture dislocation. Other findings as noted above Knee X-Ray 12/09/17 00:00 IMPRESSION: Comminuted impaction type fracture of the distal femur. No other evidence for fracture is seen. Head CT 12/09/17 12:23 IMPRESSION: CHRONIC CHANGES OF ATROPHY AND MICROVASCULAR ISCHEMIA. NO ACUTE PROCESS. EVIDENCE OF ACUTE STROKE: NO. Hip X-Ray 12/09/17 12:23 IMPRESSION: STABLE CHRONIC FINDINGS. NO RADIOGRAPHIC EVIDENCE OF ACUTE INJURY. Chest X-Ray 12/10/17 00:00 IMPRESSION: 1. Right subclavian central venous catheter with tip projecting into the right IJ. Repositioning may be beneficial. Report called to Dr. Hudson at 0613 hours on 12/10/2017 Femur X-Ray 12/12/17 08:30 IMPRESSION: IMAGE(S) OBTAINED DURING PROCEDURE. Fluoroscopy 12/12/17 08:30 IMPRESSION: IMAGE(S) OBTAINED DURING PROCEDURE. 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
[2017-12-13] MEDS ORDERED: RIVAROXABAN 10 MG TABLET PO SCH (22:00)
[2017-12-13] MEDS ORDERED: CYANOCOBALAMIN (VITAMIN B-12) INJ 1000 MCG/1 ML VIAL IM SCH (22:00)
[2017-12-13] MEDS: ATORVASTATIN CALCIUM 10 MG TABLET PO SCH (23:08)
[2017-12-13 23:41] LABS: ABSOLUTE BASOPHILS # (AUTO) 0.1 10^3/uL (0.0-0.2); ABSOLUTE EOSINOPHILS # (AUTO) 0.1 10^3/uL (0.0-0.6); ABSOLUTE LYMPHOCYTES (AUTO) 1.4 10^3/uL (0.5-4.7); ABSOLUTE MONOCYTES (AUTO) 0.9 10^3/uL (0.1-1.4); ABSOLUTE NEUT (AUTO) 13.1 10^3/uL (1.7-8.2); BASOPHILS % (AUTO) 0.4 % (0-2); EOSINOPHILS % (AUTO) 0.5 % (0-6); HEMATOCRIT 31.3 % (36.0-47.0); LYMPHOCYTES % (AUTO) 9.3 % (13-45); MEAN CORPUSCULAR HEMOGLOBIN 29.5 pg (27.0-33.4); MEAN CORPUSCULAR HGB CONC 32.7 g/dL (32.0-36.0); MEAN CORPUSCULAR VOLUME 90 fl (80-97); RED BLOOD COUNT 3.47 10^6/uL (3.72-5.28); RED CELL DISTRIBUTION WIDTH 15.3 % (11.5-14.0); SEGMENTED NEUTROPHILS % (AUTO) 83.8 % (42-78); TOTAL CELLS COUNTED % (AUTO) 100 %; WHITE BLOOD COUNT 15.6 10^3/uL (4.0-10.5)
[2017-12-13 23:44] LABS: HEMOGLOBIN 10.2 g/dL (12.0-15.5); PLATELET COUNT 95 10^3/uL (150-450)
[2017-12-14 04:57] LABS: ABSOLUTE EOSINOPHILS # (AUTO) 0.1 10^3/uL (0.0-0.6); ABSOLUTE LYMPHOCYTES (AUTO) 1.1 10^3/uL (0.5-4.7); ABSOLUTE MONOCYTES (AUTO) 0.7 10^3/uL (0.1-1.4); BASOPHILS % (AUTO) 0.2 % (0-2); EOSINOPHILS % (AUTO) 0.9 % (0-6); HEMOGLOBIN 9.8 g/dL (12.0-15.5); MEAN CORPUSCULAR HEMOGLOBIN 29.9 pg (27.0-33.4); MEAN CORPUSCULAR HGB CONC 33.9 g/dL (32.0-36.0); MEAN CORPUSCULAR VOLUME 88 fl (80-97); MONOCYTES % (AUTO) 5.1 % (3-13); PLATELET COUNT 102 10^3/uL (150-450); RED BLOOD COUNT 3.29 10^6/uL (3.72-5.28); RED CELL DISTRIBUTION WIDTH 15.8 % (11.5-14.0); SEGMENTED NEUTROPHILS % (AUTO) 85.8 % (42-78); TOTAL CELLS COUNTED % (AUTO) 100 %
[2017-12-14 05:13] LABS: BLOOD UREA NITROGEN 12 mg/dL (7-20); CALCIUM 7.7 mg/dL (8.4-10.2); CHLORIDE 119 mmol/L (98-107); GLUCOSE 107 mg/dL (75-110)
[2017-12-14 05:25] LABS: ANION GAP 6 (5-19); CARBON DIOXIDE 19 mmol/L (22-30); SODIUM 144.3 mmol/L (137-145)
[2017-12-14 05:27] LABS: POTASSIUM 4.3 mmol/L (3.6-5.0)
[2017-12-14] MEDS: LANSOPRAZOLE 15 MG TAB.RAP.DR PO SCH (06:07)
[2017-12-14] MEDS: GABAPENTIN 300 MG CAPSULE PO SCH ×3 (06:07→21:27)
[2017-12-14] MEDS: SACUBITRIL/VALSARTAN 49 MG/51 MG TABLET PO SCH ×2 (06:07→18:27)
[2017-12-14] MEDS: NORMAL SALINE INJ/PF 0.9% 10 ML SDV IV SCH ×3 (06:12→21:28)
[2017-12-14] MEDS: APIXABAN 2.5 MG TABLET PO SCH ×2 (09:39→18:27)
[2017-12-14] MEDS: POTASSIUM CHLORIDE 10 MEQ TABLET.SA PO SCH (09:40)
[2017-12-14] MEDS: ISOSORBIDE MONONITRATE 30 MG TAB.ER.24H PO SCH (09:40)
[2017-12-14] MEDS: METOPROLOL SUCCINATE 50 MG TAB.SR.24H PO SCH ×2 (09:40→21:27)
[2017-12-14] MEDS: DONEPEZIL HCL 5 MG TABLET PO SCH (09:40)
[2017-12-14] MEDS: NORMAL SALINE 1000 ML 1,000 ML IV PRN (21:21)
[2017-12-14] MEDS: ATORVASTATIN CALCIUM 10 MG TABLET PO SCH (21:27)
--- NOTE | 2017-12-14 22:22 | PDOC PROGRESS REPORT ---
Subjective Progress Note for:: 12/14/17 Subjective:: Patient is awake, responsive, the plan is to go home with home physical therapy , family does not want patient to go to alf for rehabilitation though that is the most likely best option for the patient Reason For Visit: FRACTURE OF DISTAL LEFT FEMUR, MILD ACUTE KIDNEY Physical Exam Vital Signs: Temp Pulse Resp BP Pulse Ox 98.4 F 71 15 115/47 L 99 12/14/17 19:48 12/14/17 19:48 12/14/17 19:48 12/14/17 19:48 12/14/17 19:48 Intake & Output 12/13/17 12/14/17 12/15/17 06:59 06:59 06:59 Intake Total 5828 2398 860 Output Total 1350 450 300 Balance 4478 1948 560 Weight 60.8 kg 62.9 kg General appearance: PRESENT: no acute distress Eye exam: PRESENT: PERRLA Respiratory exam: PRESENT: clear to auscultation kit Cardiovascular exam: PRESENT: +S1, +S2 GI/Abdominal exam: PRESENT: soft Neurological exam: PRESENT: alert Results Laboratory Results: 12/14/17 04:19 12/14/17 04:19 12/13/17 12/14/17 12/14/17 23:16 04:19 04:19 WBC 15.6 H 14.0 H RBC 3.47 L 3.29 L Hgb 10.2 L D 9.8 L Hct 31.3 L 29.0 L MCV 90 88 MCH 29.5 29.9 MCHC 32.7 33.9 RDW 15.3 H 15.8 H Plt Count 95 L 102 L Seg Neutrophils % 83.8 H 85.8 H Lymphocytes % 9.3 L 8.0 L Monocytes % 6.0 5.1 Eosinophils % 0.5 0.9 Basophils % 0.4 0.2 Absolute Neutrophils 13.1 H 12.0 H Absolute Lymphocytes 1.4 1.1 Absolute Monocytes 0.9 0.7 Absolute Eosinophils 0.1 0.1 Absolute Basophils 0.1 0.0 Sodium 144.3 Potassium 4.3 D Chloride 119 H Carbon Dioxide 19 L Anion Gap 6 BUN 12 Creatinine 0.65 Est GFR ( Amer) > 60 Est GFR (Non-Af Amer) > 60 Glucose 107 Calcium 7.7 L 12/09/17 12/09/17 12/09/17 22:02 22:02 22:02 Creatine Kinase 168 H CK-MB (CK-2) 0.74 Troponin I 0.037 NT-Pro-B Natriuret Pep 3940 H 12/10/17 12/10/17 06:45 06:45 Creatine Kinase 105 CK-MB (CK-2) 0.78 Troponin I 0.046 NT-Pro-B Natriuret Pep Impressions: Ankle X-Ray 12/09/17 00:00 IMPRESSION: No acute fracture dislocation. Other findings as noted above Knee X-Ray 12/09/17 00:00 IMPRESSION: Comminuted impaction type fracture of the distal femur. No other evidence for fracture is seen. Head CT 12/09/17 12:23 IMPRESSION: CHRONIC CHANGES OF ATROPHY AND MICROVASCULAR ISCHEMIA. NO ACUTE PROCESS. EVIDENCE OF ACUTE STROKE: NO. Hip X-Ray 12/09/17 12:23 IMPRESSION: STABLE CHRONIC FINDINGS. NO RADIOGRAPHIC EVIDENCE OF ACUTE INJURY. Chest X-Ray 12/10/17 00:00 IMPRESSION: 1. Right subclavian central venous catheter with tip projecting into the right IJ. Repositioning may be beneficial. Report called to Dr. Hudson at 0613 hours on 12/10/2017 Femur X-Ray 12/12/17 08:30 IMPRESSION: IMAGE(S) OBTAINED DURING PROCEDURE. Fluoroscopy 12/12/17 08:30 IMPRESSION: IMAGE(S) OBTAINED DURING PROCEDURE. 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
[2017-12-14] MEDS: OXYCODONE HCL IR 5 MG TABLET PO PRN (23:11)
[2017-12-15] MEDS: OXYCODONE HCL IR 5 MG TABLET PO PRN ×5 (03:42→22:18)
[2017-12-15] MEDS: LANSOPRAZOLE 15 MG TAB.RAP.DR PO SCH (05:16)
[2017-12-15] MEDS: NORMAL SALINE INJ/PF 0.9% 10 ML SDV IV SCH ×3 (05:16→22:18)
[2017-12-15] MEDS: SACUBITRIL/VALSARTAN 49 MG/51 MG TABLET PO SCH ×2 (05:16→18:11)
[2017-12-15] MEDS: GABAPENTIN 300 MG CAPSULE PO SCH ×3 (05:16→22:18)
[2017-12-15 05:40] LABS: ABSOLUTE EOSINOPHILS # (AUTO) 0.1 10^3/uL (0.0-0.6); ABSOLUTE LYMPHOCYTES (AUTO) 1.1 10^3/uL (0.5-4.7); ABSOLUTE MONOCYTES (AUTO) 0.6 10^3/uL (0.1-1.4); ABSOLUTE NEUT (AUTO) 10.4 10^3/uL (1.7-8.2); BASOPHILS % (AUTO) 0.3 % (0-2); EOSINOPHILS % (AUTO) 1.1 % (0-6); HEMATOCRIT 27.5 % (36.0-47.0); HEMOGLOBIN 9.2 g/dL (12.0-15.5); LYMPHOCYTES % (AUTO) 8.7 % (13-45); MEAN CORPUSCULAR HEMOGLOBIN 30.2 pg (27.0-33.4); MEAN CORPUSCULAR HGB CONC 33.6 g/dL (32.0-36.0); MEAN CORPUSCULAR VOLUME 90 fl (80-97); MONOCYTES % (AUTO) 4.6 % (3-13); PLATELET COUNT 102 10^3/uL (150-450); RED BLOOD COUNT 3.06 10^6/uL (3.72-5.28); RED CELL DISTRIBUTION WIDTH 16.1 % (11.5-14.0); SEGMENTED NEUTROPHILS % (AUTO) 85.3 % (42-78); TOTAL CELLS COUNTED % (AUTO) 100 %; WHITE BLOOD COUNT 12.2 10^3/uL (4.0-10.5)
[2017-12-15 06:06] LABS: BLOOD UREA NITROGEN 11 mg/dL (7-20); CALCIUM 7.4 mg/dL (8.4-10.2); CARBON DIOXIDE 17 mmol/L (22-30); CHLORIDE 118 mmol/L (98-107); GLUCOSE 78 mg/dL (75-110); POTASSIUM 4.1 mmol/L (3.6-5.0)
[2017-12-15 06:15] LABS: SODIUM 138.5 mmol/L (137-145)
[2017-12-15 06:20] LABS: ANION GAP 4 (5-19)
[2017-12-15] MEDS: ISOSORBIDE MONONITRATE 30 MG TAB.ER.24H PO SCH (09:54)
[2017-12-15] MEDS: APIXABAN 2.5 MG TABLET PO SCH ×2 (09:54→18:11)
[2017-12-15] MEDS: POTASSIUM CHLORIDE 10 MEQ TABLET.SA PO SCH (09:54)
[2017-12-15] MEDS: METOPROLOL SUCCINATE 50 MG TAB.SR.24H PO SCH ×2 (09:54→22:18)
[2017-12-15] MEDS: DONEPEZIL HCL 5 MG TABLET PO SCH (09:54)
[2017-12-15] MEDS ORDERED: ACETAMINOPHEN 325 MG TABLET PO ONE (14:30)
--- NOTE | 2017-12-15 17:18 | PDOC PROGRESS REPORT ---
Subjective Progress Note for:: 12/15/17 Subjective:: She is awaiting input from discharge planning as soon as home PT is arranged she be discharged home. Family stated that she has sore throat on inspection of the throat looks normal to me. Reason For Visit: FRACTURE OF DISTAL LEFT FEMUR, MILD ACUTE KIDNEY Physical Exam Vital Signs: Temp Pulse Resp BP Pulse Ox 97.5 F 74 20 109/56 L 99 12/15/17 11:52 12/15/17 14:00 12/15/17 11:52 12/15/17 11:52 12/15/17 11:52 Intake & Output 12/14/17 12/15/17 12/16/17 06:59 06:59 06:59 Intake Total 2398 1456 Output Total 450 650 Balance 1948 806 Weight 62.9 kg 64.7 kg General appearance: PRESENT: no acute distress Eye exam: PRESENT: PERRLA Throat exam: ABSENT: post pharyngeal erythema, tonsillar erythema, tonsillar exudate, tonsillogmegaly, other Respiratory exam: PRESENT: clear to auscultation kit Cardiovascular exam: PRESENT: +S1, +S2 GI/Abdominal exam: PRESENT: soft Neurological exam: PRESENT: alert Results Laboratory Results: 12/15/17 05:07 12/15/17 05:07 12/15/17 12/15/17 05:07 05:07 WBC 12.2 H RBC 3.06 L Hgb 9.2 L Hct 27.5 L MCV 90 MCH 30.2 MCHC 33.6 RDW 16.1 H Plt Count 102 L Seg Neutrophils % 85.3 H Lymphocytes % 8.7 L Monocytes % 4.6 Eosinophils % 1.1 Basophils % 0.3 Absolute Neutrophils 10.4 H Absolute Lymphocytes 1.1 Absolute Monocytes 0.6 Absolute Eosinophils 0.1 Absolute Basophils 0.0 Sodium 138.5 Potassium 4.1 Chloride 118 H Carbon Dioxide 17 L Anion Gap 4 L BUN 11 Creatinine 0.64 Est GFR ( Amer) > 60 Est GFR (Non-Af Amer) > 60 Glucose 78 Calcium 7.4 L 12/12/17 09:46 Catheterized Urine Urine Culture - Final NO GROWTH 2 DAYS 12/10/17 09:45 Blood Blood Culture - Final NO GROWTH IN 5 DAYS 12/09/17 23:20 Blood Blood Culture - Final NO GROWTH IN 5 DAYS 12/09/17 12/09/17 12/09/17 22:02 22:02 22:02 Creatine Kinase 168 H CK-MB (CK-2) 0.74 Troponin I 0.037 NT-Pro-B Natriuret Pep 3940 H 12/10/17 12/10/17 06:45 06:45 Creatine Kinase 105 CK-MB (CK-2) 0.78 Troponin I 0.046 NT-Pro-B Natriuret Pep Impressions: Ankle X-Ray 12/09/17 00:00 IMPRESSION: No acute fracture dislocation. Other findings as noted above Knee X-Ray 12/09/17 00:00 IMPRESSION: Comminuted impaction type fracture of the distal femur. No other evidence for fracture is seen. Head CT 12/09/17 12:23 IMPRESSION: CHRONIC CHANGES OF ATROPHY AND MICROVASCULAR ISCHEMIA. NO ACUTE PROCESS. EVIDENCE OF ACUTE STROKE: NO. Hip X-Ray 12/09/17 12:23 IMPRESSION: STABLE CHRONIC FINDINGS. NO RADIOGRAPHIC EVIDENCE OF ACUTE INJURY. Chest X-Ray 12/10/17 00:00 IMPRESSION: 1. Right subclavian central venous catheter with tip projecting into the right IJ. Repositioning may be beneficial. Report called to Dr. Hudson at 0613 hours on 12/10/2017 Femur X-Ray 12/12/17 08:30 IMPRESSION: IMAGE(S) OBTAINED DURING PROCEDURE. Fluoroscopy 12/12/17 08:30 IMPRESSION: IMAGE(S) OBTAINED DURING PROCEDURE. 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
[2017-12-15] MEDS: ATORVASTATIN CALCIUM 10 MG TABLET PO SCH (22:18)
[2017-12-16] MEDS: OXYCODONE HCL IR 5 MG TABLET PO PRN ×3 (01:56→20:38)
[2017-12-16] MEDS: GABAPENTIN 300 MG CAPSULE PO SCH ×2 (05:38→13:41)
[2017-12-16] MEDS: NORMAL SALINE INJ/PF 0.9% 10 ML SDV IV SCH ×2 (05:38→13:42)
[2017-12-16] MEDS: SACUBITRIL/VALSARTAN 49 MG/51 MG TABLET PO SCH ×2 (05:38→17:10)
[2017-12-16] MEDS: LANSOPRAZOLE 15 MG TAB.RAP.DR PO SCH (05:38)
[2017-12-16] MEDS: NORMAL SALINE 1000 ML 1,000 ML IV PRN (06:29)
[2017-12-16] MEDS ORDERED: PHENOL/SODIUM PHENOLATE 100 SPRAY/177 ML BOTTLE PO PRN (08:55)
[2017-12-16] MEDS: METOPROLOL SUCCINATE 50 MG TAB.SR.24H PO SCH (09:17)
[2017-12-16] MEDS: APIXABAN 2.5 MG TABLET PO SCH ×2 (09:17→17:10)
[2017-12-16] MEDS: POTASSIUM CHLORIDE 10 MEQ TABLET.SA PO SCH (09:17)
[2017-12-16] MEDS: ISOSORBIDE MONONITRATE 30 MG TAB.ER.24H PO SCH (09:17)
[2017-12-16] MEDS: DONEPEZIL HCL 5 MG TABLET PO SCH (09:17)
--- NOTE | 2017-12-16 17:26 | PDOC DISCHARGE SUMMARY ---
General - Admit/Disc Date/PCP Admission Date/Primary Care Provider: 12/09/17 15:38 JOÃO BRAGA MD Discharge Date: 12/16/17 - Discharge Diagnosis (1) Closed fracture of distal end of femur Is this a current diagnosis for this admission?: Yes (2) Chronic systolic heart failure Is this a current diagnosis for this admission?: Yes (3) Pathologic fracture of femur associated with osteoporosis Is this a current diagnosis for this admission?: Yes (4) Anemia due to acute blood loss Is this a current diagnosis for this admission?: Yes (5) Acute kidney injury Is this a current diagnosis for this admission?: Yes - Additional Information Resuscitation Status: Full Code Prescriptions: Furosemide [Lasix 40 mg Tablet] 20 mg PO BID #60 tablet Sacubitril/Valsartan [Entresto 49 mg/51 mg Tablet] 1 tab PO Q12A #60 tablet Home Medications: Apixaban [Eliquis] 2.5 mg PO Q12 12/09/17 Gabapentin [Neurontin 300 mg Capsule] 300 mg PO Q8 12/09/17 Hydrocodone/Acetaminophen [Hydrocodone-Acetamin 5-325 mg] 1 tab PO Q6HP PRN Isosorbide Mononitrate [Isosorbide Mononitrate ER] 30 mg PO DAILY 12/09/17 Memantine HCl/Donepezil HCl [Namzaric 28 mg-10 mg Capsule] 1 cap PO DAILY Metoprolol Succinate [Toprol Xl 50 mg Tab.sr] 50 mg PO Q12 12/09/17 Potassium Chloride [Klor-Con 10 Meq Tablet.sa] 10 meq PO DAILY 12/09/17 Rosuvastatin Calcium [Crestor 5 mg Tablet] 5 mg PO QHS 12/09/17 Omeprazole 20 mg PO DAILY 12/10/17 Cyanocobalamin (Vitamin B-12) [Vitamin B-12 Inj 1000 Mcg/1 ml Vial] 1,000 mcg IM [id number] 12/13/17 Furosemide [Lasix 40 mg Tablet] 20 mg PO BID #60 tablet 12/16/17 Sacubitril/Valsartan [Entresto 49 mg/51 mg Tablet] 1 tab PO Q12A #60 tablet 12/02 History of Present Illness History of Present Illness: VERONA VALDEZ is a 82 year old female, She has a history of chronic systolic heart failure, dementia, osteoporosis, chronic atrial fibrillation, angiodysplasia of the small intestine, she came to the emergency room with family members because of pain in the left lower extremity, the history was that while she was walking her leg suddenly lost posture bunckles down and.fell. She was recently seen in the office when she fell and sustained left patella fracture associated with hemarthrosis. She was referred to orthopedic for evaluation this was managed conservatively with a brace in the. In the emergency room she was evaluated she was told to be dehydrated because of slight increase in BUN and creatinine when compared to previous data. When I saw patient emergency room it seems there was malrotation of the left lower extremity x-ray of the left knee and ankle was obtained, it showed comminuted fracture of the distal femur Hospital Course Hospital Course: She was admitted for the management of fracture of the distal left femur, she was seen by orthopedic, she underwent ORIF of the left femur., The medication was optimized, she had acute kidney injury, this was prerenal in nature it was corrected with IV fluid. She was started on entresto, for CHF, the dose of furosemide was reduced to 20 mg p.o. twice daily. She had anemia due to acute blood loss, she was transfused with 2 units of packed red blood cells. Family prefer home physical therapy rather than halfway rehabilitation. Physical Exam Vital Signs: Temp Pulse Resp BP Pulse Ox 98.0 F 74 18 116/49 L 92 12/16/17 15:43 12/16/17 15:43 12/16/17 15:43 12/16/17 15:43 12/16/17 15:43 Intake & Output 12/15/17 12/16/17 12/17/17 06:59 06:59 06:59 Intake Total 1456 1904 100 Output Total 650 600 175 Balance 806 1304 -75 Weight 64.7 kg 67.6 kg General appearance: PRESENT: no acute distress Head exam: PRESENT: atraumatic, normocephalic Eye exam: PRESENT: conjunctiva pink, EOMI, PERRLA Ear exam: PRESENT: normal external ear exam Mouth exam: PRESENT: moist, tongue midline Neck exam: PRESENT: full ROM Respiratory exam: PRESENT: clear to auscultation kit Cardiovascular exam: PRESENT: RRR, +S1, +S2 Murmur grade: 3 Vascular exam: PRESENT: normal capillary refill GI/Abdominal exam: PRESENT: normal bowel sounds, soft Rectal exam: PRESENT: deferred Neurological exam: PRESENT: alert Psychiatric exam: PRESENT: appropriate affect, normal mood Skin exam: PRESENT: dry, intact, warm. ABSENT: cyanosis, rash Results Laboratory Results: 12/15/17 05:07 12/15/17 05:07 12/09/17 12/09/17 12/09/17 22:02 22:02 22:02 Creatine Kinase 168 H CK-MB (CK-2) 0.74 Troponin I 0.037 NT-Pro-B Natriuret Pep 3940 H 12/10/17 12/10/17 06:45 06:45 Creatine Kinase 105 CK-MB (CK-2) 0.78 Troponin I 0.046 NT-Pro-B Natriuret Pep Impressions: Ankle X-Ray 12/09/17 00:00 IMPRESSION: No acute fracture dislocation. Other findings as noted above Knee X-Ray 12/09/17 00:00 IMPRESSION: Comminuted impaction type fracture of the distal femur. No other evidence for fracture is seen. Head CT 12/09/17 12:23 IMPRESSION: CHRONIC CHANGES OF ATROPHY AND MICROVASCULAR ISCHEMIA. NO ACUTE PROCESS. EVIDENCE OF ACUTE STROKE: NO. Hip X-Ray 12/09/17 12:23 IMPRESSION: STABLE CHRONIC FINDINGS. NO RADIOGRAPHIC EVIDENCE OF ACUTE INJURY. Chest X-Ray 12/10/17 00:00 IMPRESSION: 1. Right subclavian central venous catheter with tip projecting into the right IJ. Repositioning may be beneficial. Report called to Dr. Hudson at 0613 hours on 12/10/2017 Femur X-Ray 12/12/17 08:30 IMPRESSION: IMAGE(S) OBTAINED DURING PROCEDURE. Fluoroscopy 12/12/17 08:30
[2017-12-16 18:06] VITALS: BP 104/58
== END 2017-12-16 20:50 | disposition home or self-care (01) | DRG 481 ==
LOC: ER 11:21 → EH 15:38 → 3N 23:54
PROVIDERS: ADMIT Internal Medicine; ATTEND Internal Medicine
PROC: 05HM33Z Insertion of Infusion Device into Right Internal Jugular Vein, Percutaneous Approach (ICD-10-PCS; 2017-12-10)
PROC: 0QHC06Z Insertion of Intramedullary Internal Fixation Device into Left Lower Femur, Open Approach (ICD-10-PCS; principal; 2017-12-12 08:00)
PROC: 30233N1 Transfusion of Nonautologous Red Blood Cells into Peripheral Vein, Percutaneous Approach (ICD-10-PCS; 2017-12-13)
DX: S72.402A Unspecified fracture of lower end of left femur, initial encounter for closed fracture (principal); N17.9 Acute kidney failure, unspecified; I50.22 Chronic systolic (congestive) heart failure; D62 Acute posthemorrhagic anemia; M80.852A Other osteoporosis with current pathological fracture, left femur, initial encounter for fracture; E46 Unspecified protein-calorie malnutrition; W05.0XXA Fall from non-moving wheelchair, initial encounter; I11.0 Hypertensive heart disease with heart failure; I48.2 Chronic atrial fibrillation; F03.90 Unspecified dementia, unspecified severity, without behavioral disturbance, psychotic disturbance, mood disturbance, and anxiety; K31.819 Angiodysplasia of stomach and duodenum without bleeding; E86.0 Dehydration; E78.5 Hyperlipidemia, unspecified; M19.90 Unspecified osteoarthritis, unspecified site; I25.2 Old myocardial infarction; Z79.899 Other long term (current) drug therapy; Z86.711 Personal history of pulmonary embolism; Z95.5 Presence of coronary angioplasty implant and graft; Z90.710 Acquired absence of both cervix and uterus; Z95.0 Presence of cardiac pacemaker; Z91.018 Allergy to other foods; Z82.61 Family history of arthritis; Z82.3 Family history of stroke; Z83.3 Family history of diabetes mellitus; Z80.9 Family history of malignant neoplasm, unspecified; Z82.49 Family history of ischemic heart disease and other diseases of the circulatory system
CPT/HCPCS: 01230; 36415; 36430; 70450; 71045; 80048; 80053; 80061; 80076; 81001; 82140; 82150; 82550; 82553; 83036; 83690; 83735; 83880; 84100; 84439; 84443; 84484; 85025; 85610; 85730; 86850; 86900; 86901; 86920; 87040; 87086; 93005; 93010; 99291; C1713; G8978-GP; G8979-GP; G8987-GO; G8988-GO; G8989-GO; J0131; J0690; J1642; J2175; J2250; J2704; J3010; J3420; J3480; J3489; J3490; J7030; J7120; L1830; P9016

== ENCOUNTER 2018-01-26 17:18 | Observation (INO) | payer MEDICARE, OTHER ==
--- NOTE | 2018-01-26 19:24 | ER Document Report ---
ED General - General Chief Complaint: General Weakness Stated Complaint: LETHARGIC Time Seen by Provider: 01/26/18 18:04 Mode of Arrival: Medic Information source: Relative Cannot obtain history due to: Dementia Notes: 82-year-old female with a history of dementia, congestive heart failure, hypertension presents from home with her daughters who were concerned for increasing lethargy and decreased urine output. At baseline patient is alert and oriented 1. Family is at the bedside and provides the history. Patient has been eating and drinking normally. Patient is currently only complaining of right sided arm pain. Family reports that she has been complaining about this for a few days now. They deny any recent falls. Patient has been bedridden for approximately 2 months since she sustained a left femur fracture.She does have home health that sees her every day and is a dressing to wounds that are on her heels. Family denies any recent illnesses, fever, vomiting, diarrhea. TRAVEL OUTSIDE OF THE [place] IN LAST 30 DAYS: No - Related Data Allergies/Adverse Reactions: strawberry [[place]] Allergy (Intermediate, Verified 10/13/17 13:42) RASH Past Medical History - General Information source: Patient Cannot obtain history due to: Dementia - Social History Smoking Status: Never Smoker Frequency of alcohol use: None Drug Abuse: None Lives with: Family Family History: Arthritis, CAD, CVA, DM, Hyperlipidemia, Hypertension, Malignancy Patient has suicidal ideation: No Patient has homicidal ideation: No - Past Medical History Cardiac Medical History: Reports: Hx Atrial Fibrillation, Hx Congestive Heart Failure, Hx Heart Attack, Hx Hypercholesterolemia, Hx Hypertension, Hx Pulmonary Embolism Denies: Hx Coronary Artery Disease, Hx Peripheral Vascular Disease, Hx Heart Murmur Pulmonary Medical History: Denies: Hx Asthma, Hx Bronchitis, Hx COPD, Hx Pneumonia, Hx Tuberculosis Neurological Medical History: Denies: Hx Cerebrovascular Accident, Hx Seizures Renal/ Medical History: Denies: Hx End Stage Renal Disease, Hx Peritoneal Dialysis GI Medical History: Denies: Hx Hepatitis, Hx Hiatal Hernia, Hx Ulcer Musculoskeltal Medical History: Reports Hx Arthritis, Denies Hx Fibromyalgia, Reports Hx Musculoskeletal Deformity, Reports Hx Musculoskeletal Trauma Psychiatric Medical History: Reports: Hx Dementia Denies: Hx Depression Traumatic Medical History: Reports: Hx Fractures - left arm, right hip left tib fib Infectious Medical History: Denies: Hx Hepatitis Past Surgical History: Reports: Hx Cardiac Catheterization - stents, Hx Cardiac Surgery - defibillator/pacemaker, Hx Coronary Stent, Hx Hysterectomy, Hx Orthopedic Surgery - right hip left tib fib and left arm, Hx Pacemaker - 2009. Denies: Hx Appendectomy, Hx Section, Hx Cholecystectomy, Hx Coronary Artery Bypass Graft, Hx Gastric Bypass Surgery, Hx Herniorrhaphy, Hx Mastectomy , Hx Open Heart Surgery, Hx Tonsillectomy, Hx Tubal Ligation - Immunizations Hx Diphtheria, Pertussis, Tetanus Vaccination: No Hx Pneumococcal Vaccination: 05/15/11 Review of Systems - Review of Systems Constitutional: denies: Fever EENT: No symptoms reported Cardiovascular: denies: Chest pain, Palpitations Respiratory: denies: Cough Gastrointestinal: denies: Vomiting Genitourinary: Retention Musculoskeletal: Muscle pain Skin: No symptoms reported Neurological/Psychological: Dementia Physical Exam - Vital signs Vitals: Resp Pulse Ox 16 97 01/26/18 17:30 01/26/18 17:30 - General General appearance: Alert, Lethargic In distress: None - HEENT Head: Normocephalic, Atraumatic Eyes: Normal Conjunctiva: Normal Pupils: PERRL Mouth/Lips: Other - Dry mucous membranes - Extremities General upper extremity: Normal inspection, Nontender, Normal color, Normal ROM , Normal temperature General lower extremity: Normal inspection, Nontender, Normal color, Normal ROM , Normal temperature, Normal weight bearing. No: [place]'s sign Shoulder: Tender Arm: Tender Elbow: Normal - Neurological Neuro grossly intact: Yes Cognition: Normal Orientation: AAOx4 [place] Coma Scale Eye Opening: Spontaneous [place] Coma Scale Verbal: Oriented [place] Coma Scale Motor: Obeys Commands [place] Coma Scale Total: 15 Speech: Normal Motor strength normal: LUE, RUE, LLE, RLE Sensory: Normal - Skin Skin Temperature: Warm Skin Moisture: Dry Skin Color: Normal Skin Turgor: Tenting Course - Re-evaluation Re-evalutation: 01/26/18 22:24 On reevaluation patient resting comfortably. Bedside ultrasound of the bladder was performed and significant for 70 cc. 01/26/18 22:50 82-year-old female with a history of congestive heart failure, previous CVA, dementia presents from her primary care physician's office with her daughters who are concerned for increased lethargy and decreased urine output.Upon arrival vitals were reviewed and within normal limits. Patient is somnolent but arousable. She is alert and oriented 1. Significant laboratory findings include a potassium of 3.0. This was replenished with p.o. potassium. Patient received gentle hydration for her dehydration. we have been unable to obtain a urine sample despite utilizing a straight cath. Patient will be admitted to Dr. Amin. Laboratory 01/26/18 01/26/18 01/26/18 17:50 19:22 19:22 WBC 7.5 RBC 3.89 Hgb 11.9 L Hct 36.2 MCV 93 MCH 30.7 MCHC 32.9 RDW 16.2 H Plt Count 135 L Seg Neutrophils % 63.7 Lymphocytes % 28.2 Monocytes % 4.8 Eosinophils % 2.2 Basophils % 1.1 Absolute Neutrophils 4.8 Absolute Lymphocytes 2.1 Absolute Monocytes 0.4 Absolute Eosinophils 0.2 Absolute Basophils 0.1 PT INR VBG pH VBG pCO2 VBG HCO3 VBG Base Excess Sodium 141.7 Potassium 3.0 L* Chloride 108 H Carbon Dioxide 20 L Anion Gap 14 BUN 26 H Creatinine 1.21 Est GFR ( Amer) 51 L Est GFR (Non-Af Amer) 42 L Glucose 77 POC Glucose 80 Lactic Acid Calcium 8.5 Total Bilirubin 0.6 Direct Bilirubin 0.6 H Neonat Total Bilirubin Not Reportable Neonat Direct Bilirubin Not Reportable Neonat Indirect Bili Not Reportable AST 45 H ALT 32 Alkaline Phosphatase 156 H Total Protein 6.6 Albumin 3.3 L 01/26/18 01/26/18 01/26/18 19:22 19:24 19:24 WBC RBC Hgb Hct MCV MCH MCHC RDW Plt Count Seg Neutrophils % Lymphocytes % Monocytes % Eosinophils % Basophils % Absolute Neutrophils Absolute Lymphocytes Absolute Monocytes Absolute Eosinophils Absolute Basophils PT 15.1 INR 1.11 VBG pH 7.37 VBG pCO2 34.9 L VBG HCO3 19.9 L VBG Base Excess -4.6 Sodium Potassium Chloride Carbon Dioxide Anion Gap BUN Creatinine Est GFR ( Amer) Est GFR (Non-Af Amer) Glucose POC Glucose Lactic Acid 1.9 Calcium Total Bilirubin Direct Bilirubin Neonat Total Bilirubin Neonat Direct Bilirubin Neonat Indirect Bili AST ALT Alkaline Phosphatase Total Protein Albumin Humerus X-Ray 01/26/18 19:31 IMPRESSION: NEGATIVE STUDY OF THE RIGHT HUMERUS. NO EXPLANATION FOR PAIN. 01/26/18 23:49 - Vital Signs Vital signs: Temp Pulse Resp BP Pulse Ox 98.5 F 15 146/54 H 98 01/26/18 17:44 01/26/18 18:07 01/26/18 18:07 01/26/18 18:07 - Laboratory Result Diagrams: 01/26/18 19:22 01/26/18 19:22 Laboratory results interpreted by me: 01/26/18 01/26/18 01/26/18 19:22 19:22 19:24 Hgb 11.9 L RDW 16.2 H Plt Count 135 L VBG pCO2 34.9 L VBG HCO3 19.9 L Potassium 3.0 L* Chloride 108 H Carbon Dioxide 20 L BUN 26 H Est GFR ( Amer) 51 L Est GFR (Non-Af Amer) 42 L Direct Bilirubin 0.6 H AST 45 H Alkaline Phosphatase 156 H Albumin 3.3 L Discharge - Discharge Clinical Impression: Hypokalemia, Dehydration, Lethargy Condition: Fair Disposition: ADMITTED OBSERVATION Admitting Provider: [facility] Unit Admitted: Medical Floor
[2018-01-26 19:39] LABS: VENOUS BLOOD BASE EXCESS -4.6 mmol/L; VENOUS BLOOD HCO3 19.9 mmol/L (20-32); VENOUS BLOOD PCO2 34.9 mmHg (35-63); VENOUS BLOOD PH 7.37 (7.30-7.42)
[2018-01-26 19:41] LABS: ABSOLUTE BASOPHILS # (AUTO) 0.1 10^3/uL (0.0-0.2); ABSOLUTE EOSINOPHILS # (AUTO) 0.2 10^3/uL (0.0-0.6); ABSOLUTE LYMPHOCYTES (AUTO) 2.1 10^3/uL (0.5-4.7); ABSOLUTE MONOCYTES (AUTO) 0.4 10^3/uL (0.1-1.4); ABSOLUTE NEUT (AUTO) 4.8 10^3/uL (1.7-8.2); BASOPHILS % (AUTO) 1.1 % (0-2); EOSINOPHILS % (AUTO) 2.2 % (0-6); HEMATOCRIT 36.2 % (36.0-47.0); HEMOGLOBIN 11.9 g/dL (12.0-15.5); LYMPHOCYTES % (AUTO) 28.2 % (13-45); MEAN CORPUSCULAR HEMOGLOBIN 30.7 pg (27.0-33.4); MEAN CORPUSCULAR HGB CONC 32.9 g/dL (32.0-36.0); MEAN CORPUSCULAR VOLUME 93 fl (80-97); MONOCYTES % (AUTO) 4.8 % (3-13); PLATELET COUNT 135 10^3/uL (150-450); RED BLOOD COUNT 3.89 10^6/uL (3.72-5.28); RED CELL DISTRIBUTION WIDTH 16.2 % (11.5-14.0); SEGMENTED NEUTROPHILS % (AUTO) 63.7 % (42-78); TOTAL CELLS COUNTED % (AUTO) 100 %; WHITE BLOOD COUNT 7.5 10^3/uL (4.0-10.5)
[2018-01-26] MEDS ORDERED: RINGERS SOLUTION,LACTATED 1,000 ML IV ONE (19:43)
[2018-01-26 19:48] LABS: INTERNATIONAL RATION (INR) 1.11; PROTHROMBIN TIME 15.1 SEC (11.4-15.4)
[2018-01-26 19:59] LABS: ALANINE AMINOTRANSFERASE 32 U/L (9-52); ALBUMIN 3.3 g/dL (3.5-5.0); ALKALINE PHOSPHATASE 156 U/L (38-126); ANION GAP 14 (5-19); ASPARTATE AMINO TRANSFERASE 45 U/L (14-36); BILIRUBIN,DIRECT 0.6 mg/dL (0.0-0.4); BILIRUBIN,TOTAL 0.6 mg/dL (0.2-1.3); BLOOD UREA NITROGEN 26 mg/dL (7-20); CALCIUM 8.5 mg/dL (8.4-10.2); CARBON DIOXIDE 20 mmol/L (22-30); CHLORIDE 108 mmol/L (98-107); GLUCOSE 77 mg/dL (75-110); SODIUM 141.7 mmol/L (137-145); TOTAL PROTEIN 6.6 g/dL (6.3-8.2)
--- NOTE | 2018-01-26 20:41 | RADIOLOGY REPORT (SQ) ---
EXAM DESCRIPTION: HUMERUS RIGHT COMPLETED DATE/TIME: 01/26/2018 8:27 pm REASON FOR STUDY: pain. COMPARISON: None. NUMBER OF VIEWS: Two views. TECHNIQUE: Two radiographic images were acquired of the right humerus to include elbow and shoulder in at least one projection. LIMITATIONS: None. FINDINGS: MINERALIZATION: Diffuse osteopenia. BONES: No acute fracture or dislocation. No worrisome bone lesions. No significant osteophytes. SOFT TISSUES: No obvious swelling or foreign body. OTHER: No other significant finding. IMPRESSION: NEGATIVE STUDY OF THE RIGHT HUMERUS. NO EXPLANATION FOR PAIN. TECHNICAL DOCUMENTATION: JOB ID: [id number] [email or web address]- All Rights Reserved Reading location - IP/workstation name: [email or web address]
[2018-01-26] MEDS ORDERED: POTASSIUM CHLORIDE 20 MEQ/15 ML UDCUP PO ONE (20:59)
--- NOTE | 2018-01-26 21:55 | EKG REPORT ---
SEVERITY:- ABNORMAL ECG - VENTRICULAR-PACED RHYTHM : Confirmed by: Scooter Webster MD 26-Jan-2018 18:55:26
[2018-01-26] MEDS ORDERED: (PENDING PHARMACY ID) (Memantine Hcl/Donepezil Hcl [Namzaric 28 Mg-10 Mg Capsule] 1 CAP) PO SCH (23:45)
[2018-01-26] MEDS ORDERED: HYDROCODONE/ACETAMINOPHEN 5-325 MG TABLET PO PRN (23:57)
[2018-01-27] MEDS: APIXABAN 2.5 MG TABLET PO SCH ×2 (00:56→22:27)
[2018-01-27] MEDS ORDERED: SACUBITRIL/VALSARTAN 49 MG/51 MG TABLET PO SCH (06:00)
[2018-01-27] MEDS: GABAPENTIN 300 MG CAPSULE PO SCH ×3 (06:03→22:27)
[2018-01-27 09:35] LABS: ANION GAP 14 (5-19); BLOOD UREA NITROGEN 19 mg/dL (7-20); CALCIUM 8.4 mg/dL (8.4-10.2); CARBON DIOXIDE 17 mmol/L (22-30); CHLORIDE 110 mmol/L (98-107); GLUCOSE 64 mg/dL (75-110); POTASSIUM 3.7 mmol/L (3.6-5.0); SODIUM 140.7 mmol/L (137-145)
[2018-01-27] MEDS: LANSOPRAZOLE 15 MG TAB.RAP.DR PO SCH (10:02)
[2018-01-27] MEDS: METOPROLOL SUCCINATE 50 MG TAB.SR.24H PO SCH ×2 (10:03→22:27)
[2018-01-27] MEDS: FUROSEMIDE 40 MG TABLET PO SCH (10:03)
[2018-01-27] MEDS: CHLORPHENIRAMINE MALEATE 4 MG TABLET PO SCH ×2 (10:03→22:27)
[2018-01-27] MEDS: ISOSORBIDE MONONITRATE 30 MG TAB.ER.24H PO SCH (10:03)
[2018-01-27] MEDS: POTASSIUM CHLORIDE 10 MEQ TABLET.SA PO SCH (10:03)
[2018-01-27] MEDS: SACUBITRIL/VALSARTAN 49 MG/51 MG TABLET PO SCH ×2 (10:03→22:27)
[2018-01-27] MEDS: CALCIUM CARBONATE 250 MG/VITAMIN D3 125 UNIT TABLET PO SCH (13:35)
[2018-01-27] MEDS ORDERED: FERROUS SULFATE 325 MG TABLET PO SCH (18:00)
--- NOTE | 2018-01-27 18:17 | PDOC H&P ---
History of Present Illness Admission Date/PCP: 01/26/18 23:23 JOÃO BRAGA MD History of Present Illness: VERONA VALDEZ is a 82 year old female, She has a history of chronic systolic and diastolic heart failure, well compensated, dementia, she was brought to the emergency room by family for evaluation of decreased intake, fatigue, and malaise. In the emergency room she was evaluated, she was found to have hypokalemia and the ED physician thought she was dehydrated, they want her admitted to the hospital for management. When I saw the patient I did not see any biochemical evidence of dehydration, the potassium was replaced and is now normalized. Patient was alert oriented she does respond to questions. I saw the patient's daughter in the room with her she stated that she normally eats, drink but you have to make her do these things. She said she usually takes care of in the morning times but she was out over the last week and she believes her siblings did not push her strong enough that is why she had reduced intake. She also stated that she has been ambulating and that she is not bedbound as was stated in the ER record. I do not see any indication to give any IV fluid as indicated she has chronic systolic and diastolic heart failure presently well compensated she is very prone to volume overload. She was brought in for observation she be discharged home in the morning Past Medical History Cardiac Medical History: Reports: Atrial Fibrillation, Congestive Heart Failure , Myocardial Infarction, Hyperlipidema, Hypertension, Pulmonary Embolism Musculoskeltal Medical History: Reports: Arthritis Psychiatric Medical History: Reports: Dementia Hematology: Reports: Anemia Past Surgical History Past Surgical History: Reports: Cardiac Catheterization - stents, Coronary Stent , Hysterectomy, Orthopedic Surgery - right hip left tib fib and left arm, Pacemaker - 2008 Social History Lives with: Family Smoking Status: Never Smoker Frequency of Alcohol Use: None Hx Recreational Drug Use: No Drugs: None Hx Prescription Drug Abuse: No - Advance Directive Resuscitation Status: Do Not Resuscitate Family History Family History: Arthritis, CAD, CVA, DM, Hyperlipidemia, Hypertension, Malignancy Parental Family History Reviewed: Yes Children Family History Reviewed: Yes Sibling(s) Family History Reviewed.: Yes Medication/Allergy Home Medications: Acetaminophen [Tylenol Extra Strength 500 mg Tablet] 500 mg PO BID 01/27/18 Apixaban [Eliquis 2.5 mg Tablet] 2.5 mg PO BID 01/27/18 Calcium Carbonate/Vitamin D3 [Calcium 600 + Vit D Tablet] 1 tab PO DAILY Chlorpheniramine Maleate [Aller-Chlor 4 mg Tablet] 4 mg PO BID 01/27/18 Ferrous Sulfate [Feosol 325 mg Tablet] 325 mg PO DAILY 01/27/18 Furosemide [Lasix 40 mg Tablet] 40 mg PO DAILY 01/27/18 Gabapentin [Neurontin 300 mg Capsule] 300 mg PO Q8 01/27/18 Hydrocodone/Acetaminophen [[place] 5-325 Tablet] 1 tab PO Q6HP PRN 01/27/18 Ibuprofen [Motrin 800 mg Tablet] 800 mg PO TIDP PRN 01/27/18 Isosorbide Mononitrate [Imdur 30 mg Tablet.er] 30 mg PO DAILY 01/27/18 Memantine HCl/Donepezil HCl [Namzaric 28 mg-10 mg Capsule] 1 cap PO DAILY Metoprolol Succinate [Toprol Xl 50 mg Tab.sr] 50 mg PO DAILY 01/27/18 Omeprazole 20 mg PO DAILY 01/27/18 Potassium Chloride [Klor-Con 10] 10 meq PO DAILY 01/27/18 Rosuvastatin Calcium [Crestor 5 mg Tablet] 5 mg PO DAILY 01/27/18 Sacubitril/Valsartan [Entresto 49 mg/51 mg Tablet] 1 tab PO BID 01/27/18 Allergies/Adverse Reactions: strawberry [[place]] Allergy (Intermediate, Verified 01/26/18 23:50) RASH Review of Systems Constitutional: ABSENT: chills, fever(s), headache(s), weight gain, weight loss Eyes: ABSENT: visual disturbances Ears: ABSENT: hearing changes Cardiovascular: ABSENT: chest pain, dyspnea on exertion, edema, orthropnea, palpitations Respiratory: ABSENT: cough, hemoptysis Gastrointestinal: ABSENT: abdominal pain, constipation, diarrhea, hematemesis, hematochezia, nausea, vomiting Genitourinary: ABSENT: dysuria, hematuria Musculoskeletal: ABSENT: joint swelling Integumentary: ABSENT: rash, wounds Neurological: ABSENT: abnormal gait, abnormal speech, confusion, dizziness, focal weakness, syncope Psychiatric: ABSENT: anxiety, depression, homidical ideation, suicidal ideation Endocrine: ABSENT: cold intolerance, heat intolerance, menstrual abnormalities, polydipsia, polyuria Hematologic/Lymphatic: ABSENT: easy bleeding, easy bruising, lymphadenopathy Physical Exam Vital Signs: Temp Pulse Resp BP Pulse Ox 98.4 F 63 16 98/50 L 96 01/27/18 14:55 01/27/18 14:55 01/27/18 14:55 01/27/18 14:55 01/27/18 14:55 Intake & Output 01/26/18 01/27/18 01/28/18 06:59 06:59 06:59 Intake Total 500 359 Balance 500 359 Weight 46.2 kg General appearance: PRESENT: no acute distress, well-developed, well-nourished Head exam: PRESENT: atraumatic, normocephalic Eye exam: PRESENT: conjunctiva pink, EOMI, PERRLA Ear exam: PRESENT: normal external ear exam Mouth exam: PRESENT: moist, tongue midline Neck exam: PRESENT: full ROM Respiratory exam: PRESENT: clear to auscultation kit Cardiovascular exam: PRESENT: RRR, +S1, +S2 Pulses: PRESENT: normal dorsalis pedis pul, +2 pedal pulses bilateral Vascular exam: PRESENT: normal capillary refill GI/Abdominal exam: PRESENT: normal bowel sounds, soft Rectal exam: PRESENT: deferred Neurological exam: PRESENT: alert, awake, oriented to person, oriented to place , oriented to time, oriented to situation, CN II-XII grossly intact Psychiatric exam: PRESENT: appropriate affect, normal mood Skin exam: PRESENT: dry, intact, warm Results Laboratory Results: 01/27/18 08:28 01/27/18 08:28 Sodium 140.7 Potassium 3.7 Chloride 110 H Carbon Dioxide 17 L Anion Gap 14 BUN 19 Creatinine 0.88 Est GFR ( Amer) > 60 Est GFR (Non-Af Amer) > 60 Glucose 64 L Calcium 8.4 Impressions: Humerus X-Ray 01/26/18 19:31 IMPRESSION: NEGATIVE STUDY OF THE RIGHT HUMERUS. NO EXPLANATION FOR PAIN. Assessment & Plan - Diagnosis (1) Hypokalemia Is this a current diagnosis for this admission?: Yes Plan: Patient brought in for observation, potassium is replaced (2) Chronic combined systolic and diastolic CHF (congestive heart failure) Is this a current diagnosis for this admission?: Yes
--- NOTE | 2018-01-27 18:21 | PDOC DISCHARGE SUMMARY ---
General - Admit/Disc Date/PCP Admission Date/Primary Care Provider: 01/26/18 23:23 JOÃO BRAGA MD Discharge Date: 01/27/18 - Discharge Diagnosis (1) Hypokalemia Is this a current diagnosis for this admission?: Yes (2) Chronic combined systolic and diastolic CHF (congestive heart failure) Is this a current diagnosis for this admission?: Yes - Additional Information Resuscitation Status: Do Not Resuscitate Home Medications: Acetaminophen [Tylenol Extra Strength 500 mg Tablet] 500 mg PO BID 01/27/18 Apixaban [Eliquis 2.5 mg Tablet] 2.5 mg PO BID 01/27/18 Calcium Carbonate/Vitamin D3 [Calcium 600 + Vit D Tablet] 1 tab PO DAILY Chlorpheniramine Maleate [Aller-Chlor 4 mg Tablet] 4 mg PO BID 01/27/18 Ferrous Sulfate [Feosol 325 mg Tablet] 325 mg PO DAILY 01/27/18 Furosemide [Lasix 40 mg Tablet] 40 mg PO DAILY 01/27/18 Gabapentin [Neurontin 300 mg Capsule] 300 mg PO Q8 01/27/18 Hydrocodone/Acetaminophen [[place] 5-325 Tablet] 1 tab PO Q6HP PRN 01/27/18 Isosorbide Mononitrate [Imdur 30 mg Tablet.er] 30 mg PO DAILY 01/27/18 Memantine HCl/Donepezil HCl [Namzaric 28 mg-10 mg Capsule] 1 cap PO DAILY Metoprolol Succinate [Toprol Xl 50 mg Tab.sr] 50 mg PO DAILY 01/27/18 Omeprazole 20 mg PO DAILY 01/27/18 Potassium Chloride [Klor-Con 10] 10 meq PO DAILY 01/27/18 Rosuvastatin Calcium [Crestor 5 mg Tablet] 5 mg PO DAILY 01/27/18 Sacubitril/Valsartan [Entresto 49 mg/51 mg Tablet] 1 tab PO BID 01/27/18 History of Present Illness History of Present Illness: VERONA VALDEZ is a 82 year old female, She has a history of chronic systolic and diastolic heart failure, well compensated, dementia, she was brought to the emergency room by family for evaluation of decreased intake, fatigue, and malaise. In the emergency room she was evaluated, she was found to have hypokalemia and the ED physician thought she was dehydrated, they want her admitted to the hospital for management. When I saw the patient I did not see any biochemical evidence of dehydration, the potassium was replaced and is now normalized. Patient was alert oriented she does respond to questions. I saw the patient's daughter in the room with her she stated that she normally eats, drink but you have to make her do these things. She said she usually takes care of in the morning times but she was out over the last week and she believes her siblings did not push her strong enough that is why she had reduced intake. She also stated that she has been ambulating and that she is not bedbound as was stated in the ER record. I do not see any indication to give any IV fluid as indicated she has chronic systolic and diastolic heart failure presently well compensated she is very prone to volume overload. She was brought in for observation she be discharged home in the morning Hospital Course Hospital Course: She was admitted for observation, management of hypokalemia, the potassium is normalized she is not dehydrated clinically and biochemically, she is being discharged home today Physical Exam Vital Signs: Temp Pulse Resp BP Pulse Ox 98.4 F 63 16 98/50 L 96 01/27/18 14:55 01/27/18 14:55 01/27/18 14:55 01/27/18 14:55 01/27/18 14:55 Intake & Output 01/26/18 01/27/18 01/28/18 06:59 06:59 06:59 Intake Total 500 359 Balance 500 359 Weight 46.2 kg General appearance: PRESENT: no acute distress Head exam: PRESENT: atraumatic, normocephalic Eye exam: PRESENT: PERRLA Ear exam: PRESENT: normal external ear exam Mouth exam: PRESENT: moist, tongue midline Neck exam: PRESENT: full ROM Respiratory exam: PRESENT: clear to auscultation kit Cardiovascular exam: PRESENT: RRR, +S1, +S2 Vascular exam: PRESENT: normal capillary refill GI/Abdominal exam: PRESENT: normal bowel sounds, soft Rectal exam: PRESENT: deferred Neurological exam: PRESENT: alert, awake, oriented to person, oriented to place , oriented to time, oriented to situation, CN II-XII grossly intact Psychiatric exam: PRESENT: appropriate affect, normal mood Skin exam: PRESENT: dry, intact, warm Results Laboratory Results: 03/15/18 08:28 01/27/18 08:28 Sodium 140.7 Potassium 3.7 Chloride 110 H Carbon Dioxide 17 L Anion Gap 14 BUN 19 Creatinine 0.88 Est GFR ( Amer) > 60 Est GFR (Non-Af Amer) > 60 Glucose 64 L Calcium 8.4 Impressions: Humerus X-Ray 01/26/18 19:31 IMPRESSION: NEGATIVE STUDY OF THE RIGHT HUMERUS. NO EXPLANATION FOR PAIN. Qualifiers - * PATEINT BEING DISCHARGED WITH ANY OF THE FOLLOWING DIAGNOSIS?: No
[2018-01-27] MEDS ORDERED: ATORVASTATIN CALCIUM 10 MG TABLET PO SCH (22:00)
[2018-01-28] MEDS: GABAPENTIN 300 MG CAPSULE PO SCH ×2 (05:07→15:29)
[2018-01-28 05:20] LABS: ANION GAP 9 (5-19); BLOOD UREA NITROGEN 17 mg/dL (7-20); CALCIUM 8.8 mg/dL (8.4-10.2); CARBON DIOXIDE 20 mmol/L (22-30); CHLORIDE 112 mmol/L (98-107); GLUCOSE 76 mg/dL (75-110); POTASSIUM 3.5 mmol/L (3.6-5.0); SODIUM 140.9 mmol/L (137-145)
[2018-01-28] MEDS: METOPROLOL SUCCINATE 50 MG TAB.SR.24H PO SCH (10:35)
[2018-01-28] MEDS: LANSOPRAZOLE 15 MG TAB.RAP.DR PO SCH (10:35)
[2018-01-28] MEDS: ISOSORBIDE MONONITRATE 30 MG TAB.ER.24H PO SCH (10:43)
[2018-01-28] MEDS: FUROSEMIDE 40 MG TABLET PO SCH (10:53)
[2018-01-28] MEDS: CALCIUM CARBONATE 250 MG/VITAMIN D3 125 UNIT TABLET PO SCH (10:53)
[2018-01-28] MEDS: CHLORPHENIRAMINE MALEATE 4 MG TABLET PO SCH (10:53)
[2018-01-28] MEDS: POTASSIUM CHLORIDE 10 MEQ TABLET.SA PO SCH (10:53)
[2018-01-28] MEDS: APIXABAN 2.5 MG TABLET PO SCH (10:53)
[2018-01-28] MEDS: SACUBITRIL/VALSARTAN 49 MG/51 MG TABLET PO SCH (10:54)
[2018-01-28 13:57] VITALS: BP 101/47
== END 2018-01-28 16:34 | disposition home or self-care (01) ==
LOC: ER 17:18 → EH 23:23 → 5 01-27 01:15
PROVIDERS: ADMIT Internal Medicine; ATTEND Internal Medicine
DX: E87.6 Hypokalemia (principal); I11.0 Hypertensive heart disease with heart failure; I50.42 Chronic combined systolic (congestive) and diastolic (congestive) heart failure; F03.90 Unspecified dementia, unspecified severity, without behavioral disturbance, psychotic disturbance, mood disturbance, and anxiety; E78.5 Hyperlipidemia, unspecified; M79.601 Pain in right arm; Z66 Do not resuscitate; Z79.899 Other long term (current) drug therapy; M79.1 Myalgia; R33.9 Retention of urine, unspecified; R40.0 Somnolence; R53.83 Other fatigue; I48.91 Unspecified atrial fibrillation; Z86.711 Personal history of pulmonary embolism; Z95.5 Presence of coronary angioplasty implant and graft; Z82.49 Family history of ischemic heart disease and other diseases of the circulatory system; Z79.02 Long term (current) use of antithrombotics/antiplatelets; Z87.81 Personal history of (healed) traumatic fracture; Z95.810 Presence of automatic (implantable) cardiac defibrillator; Z98.890 Other specified postprocedural states; Z86.73 Personal history of transient ischemic attack (TIA), and cerebral infarction without residual deficits
CPT/HCPCS: 93005; 99285; 96360; 96361; 51701; 36415 ×3; 87040; 82962; 85025; 85610; 80048 ×2; 80053; 82803; 83605; 73060; 93010; A9270 ×16; J7120; G0378

== ENCOUNTER 2018-02-13 15:21 | Inpatient (IN) | payer MEDICARE, OTHER ==
[~2018-02-13 15:21] MED LIST changes: -CHONDR SU A NA/HYALUR INTRAOC KIT (SURGICARE) ONE; -EPINEPHRINE INJ/PF 1 MG/1 ML AMPULE ONE; -KETOROLAC TROMETHAMINE 0.45% 4 DROP/0.4 ML DROPERETTE OS PRN; -LIDOCAINE 1% INJ-PF (10 MG/ML) 30 ML SDV ONE; +SACUBITRIL/VALSARTAN 49 MG/51 MG TABLET PO SCH; -TOBRAMYCIN SULFATE/DEXAMETH OPH OINTMENT 3.5 GM ONE
[2018-02-13] MEDS ORDERED: ASPIRIN 81 MG TABLET, CHEWABLE PO ONE (15:42)
[2018-02-13 16:20] LABS: ABSOLUTE BASOPHILS # (AUTO) 0.1 10^3/uL (0.0-0.2); ABSOLUTE EOSINOPHILS # (AUTO) 0.2 10^3/uL (0.0-0.6); ABSOLUTE LYMPHOCYTES (AUTO) 2.3 10^3/uL (0.5-4.7); ABSOLUTE MONOCYTES (AUTO) 0.3 10^3/uL (0.1-1.4); ABSOLUTE NEUT (AUTO) 3.2 10^3/uL (1.7-8.2); BASOPHILS % (AUTO) 1.2 % (0-2); EOSINOPHILS % (AUTO) 2.9 % (0-6); HEMATOCRIT 34.8 % (36.0-47.0); HEMOGLOBIN 11.6 g/dL (12.0-15.5); LYMPHOCYTES % (AUTO) 37.4 % (13-45); MEAN CORPUSCULAR HEMOGLOBIN 31.3 pg (27.0-33.4); MEAN CORPUSCULAR HGB CONC 33.4 g/dL (32.0-36.0); MEAN CORPUSCULAR VOLUME 94 fl (80-97); MONOCYTES % (AUTO) 5.2 % (3-13); PLATELET COUNT 121 10^3/uL (150-450); RED BLOOD COUNT 3.71 10^6/uL (3.72-5.28); RED CELL DISTRIBUTION WIDTH 15.9 % (11.5-14.0); SEGMENTED NEUTROPHILS % (AUTO) 53.3 % (42-78); TOTAL CELLS COUNTED % (AUTO) 100 %
[2018-02-13 16:58] LABS: ALANINE AMINOTRANSFERASE 18 U/L (9-52); ALBUMIN 2.8 g/dL (3.5-5.0); ALKALINE PHOSPHATASE 88 U/L (38-126); ANION GAP 10 (5-19); ASPARTATE AMINO TRANSFERASE 19 U/L (14-36); BILIRUBIN,DIRECT 0.3 mg/dL (0.0-0.4); BILIRUBIN,TOTAL 0.3 mg/dL (0.2-1.3); BLOOD UREA NITROGEN 39 mg/dL (7-20); CALCIUM 8.7 mg/dL (8.4-10.2); CARBON DIOXIDE 20 mmol/L (22-30); CHLORIDE 111 mmol/L (98-107); CREATINE KINASE 22 U/L (30-135); GLUCOSE 98 mg/dL (75-110); POTASSIUM 4.1 mmol/L (3.6-5.0); SODIUM 140.6 mmol/L (137-145); TOTAL PROTEIN 5.5 g/dL (6.3-8.2)
--- NOTE | 2018-02-13 17:13 | RADIOLOGY REPORT (SQ) ---
EXAM DESCRIPTION: CHEST SINGLE VIEW COMPLETED DATE/TIME: 02/13/2018 4:36 pm REASON FOR STUDY: back pain COMPARISON: 12/10/2017. EXAM PARAMETERS: NUMBER OF VIEWS: One view. TECHNIQUE: Single frontal radiographic view of the chest acquired. RADIATION DOSE: NA LIMITATIONS: Rotated. FINDINGS: LUNGS AND PLEURA: No opacities, masses or pneumothorax. No pleural effusion. MEDIASTINUM AND HILAR STRUCTURES: No masses. Contour normal. HEART AND VASCULAR STRUCTURES: Heart normal in size. Normal vasculature. BONES: No acute findings. HARDWARE: Defibrillator. OTHER: No other significant finding. IMPRESSION: NO ACUTE RADIOGRAPHIC FINDING IN THE CHEST. TECHNICAL DOCUMENTATION: JOB ID: [id number] [email or web address]- All Rights Reserved Reading location - IP/workstation name: [email or web address]
[2018-02-13 17:15] LABS: TROPONIN I < 0.012 ng/mL
[2018-02-13] MEDS ORDERED: NORMAL SALINE 1000 ML 1,000 ML IV ONE (17:30)
--- NOTE | 2018-02-13 17:31 | ER Document Report ---
ED General - General Chief Complaint: Low Blood Pressure Stated Complaint: DIFFICULTY BREATHING Time Seen by Provider: 02/13/18 15:26 Mode of Arrival: Ambulatory Information source: Patient Notes: 82-year-old female extensive medical history presents with complaints of feeling that she is going to , patient has been noted to be a weak lethargic Per family Denies any fevers or chills denies any abdominal pain denies any chest pain admits to back pain Daughter gave 3 nitroglycerin prior to arrival for the back pain TRAVEL OUTSIDE OF THE [place] IN LAST 30 DAYS: No - HPI Onset: Just prior to arrival Onset/Duration: Sudden Quality of pain: Pressure Severity: Mild Pain Level: 1 Associated symptoms: Body/muscle aches, Weakness Exacerbated by: Denies Relieved by: Denies Similar symptoms previously: No Recently seen / treated by doctor: Yes - Related Data Allergies/Adverse Reactions: strawberry [[place]] Allergy (Intermediate, Verified 01/26/18 23:50) RASH Past Medical History - Social History Smoking Status: Never Smoker Cigarette use (# per day): No Chew tobacco use (# tins/day): No Smoking Education Provided: No Frequency of alcohol use: None Drug Abuse: None Family History: Arthritis, CAD, CVA, DM, Hyperlipidemia, Hypertension, Malignancy Patient has suicidal ideation: No Patient has homicidal ideation: No - Past Medical History Cardiac Medical History: Reports: Hx Atrial Fibrillation, Hx Congestive Heart Failure, Hx Heart Attack, Hx Hypercholesterolemia, Hx Hypertension, Hx Pulmonary Embolism Denies: Hx Coronary Artery Disease, Hx Peripheral Vascular Disease, Hx Heart Murmur Pulmonary Medical History: Denies: Hx Asthma, Hx Bronchitis, Hx COPD, Hx Pneumonia, Hx Tuberculosis Neurological Medical History: Denies: Hx Cerebrovascular Accident, Hx Seizures Renal/ Medical History: Denies: Hx End Stage Renal Disease, Hx Peritoneal Dialysis GI Medical History: Denies: Hx Hepatitis, Hx Hiatal Hernia, Hx Ulcer Musculoskeltal Medical History: Reports Hx Arthritis, Denies Hx Fibromyalgia, Reports Hx Musculoskeletal Deformity, Reports Hx Musculoskeletal Trauma Psychiatric Medical History: Reports: Hx Dementia Denies: Hx Depression Traumatic Medical History: Reports: Hx Fractures - left arm, right hip left tib fib Infectious Medical History: Denies: Hx Hepatitis Past Surgical History: Reports: Hx Cardiac Catheterization - stents, Hx Cardiac Surgery - defibillator/pacemaker, Hx Coronary Stent, Hx Hysterectomy, Hx Orthopedic Surgery - right hip left tib fib and left arm, Hx Pacemaker - 2009. Denies: Hx Appendectomy, Hx Section, Hx Cholecystectomy, Hx Coronary Artery Bypass Graft, Hx Gastric Bypass Surgery, Hx Herniorrhaphy, Hx Mastectomy , Hx Open Heart Surgery, Hx Tonsillectomy, Hx Tubal Ligation - Immunizations Hx Diphtheria, Pertussis, Tetanus Vaccination: No Hx Pneumococcal Vaccination: 05/15/11 Review of Systems - Review of Systems Notes: REVIEW OF SYSTEMS: CONSTITUTIONAL : Denies fever, chills, or sweats. Denies recent illness. EENT: Denies eye, ear, throat, or mouth pain or symptoms. Denies nasal or sinus congestion or discharge. Denies throat, tongue, or mouth swelling or difficulty swallowing. CARDIOVASCULAR: Denies chest pain. Denies palpitations or racing or irregular heart beat. Denies ankle edema. RESPIRATORY: Denies cough, cold, or chest congestion. Denies shortness of breath, difficulty breathing, or wheezing. GASTROINTESTINAL: Denies abdominal pain or distention. Denies nausea, vomiting , or diarrhea. Denies blood in vomitus, stools, or per rectum. Denies black, tarry stools. Denies constipation. GENITOURINARY: Denies difficulty urinating, painful urination, burning, frequency, blood in urine, or discharge. FEMALE GENITOURINARY: Denies vaginal bleeding, heavy or abnormal periods, irregular periods. Denies vaginal discharge or odor. MUSCULOSKELETAL: Denies back or neck pain or stiffness. Denies joint pain or swelling. SKIN: Denies rash, lesions or sores. HEMATOLOGIC : Denies easy bruising or bleeding. LYMPHATIC: Denies swollen, enlarged glands. NEUROLOGICAL: Admits not feeling well PSYCHIATRIC: Denies anxiety or stress. Denies depression, suicidal ideation, or homicidal ideation. ALL OTHER SYSTEMS REVIEWED AND NEGATIVE. PHYSICAL EXAMINATION: GENERAL: Ill-appearing elderly female s. HEAD: Atraumatic, normocephalic. EYES: Pupils equal round and reactive to light, extraocular movements intact, conjunctiva are normal. ENT: Nares patent, oropharynx clear without exudates. Moist mucous membranes. NECK: Normal range of motion, supple without lymphadenopathy LUNGS: Breath sounds clear to auscultation bilaterally and equal. No wheezes rales or rhonchi. HEART: Regular rate and rhythm without murmurs ABDOMEN: Soft, nontender, nondistended abdomen. No guarding, no rebound. No masses appreciated. Female : deferred Musculoskeletal: Normal range of motion, no pitting or edema. No cyanosis. NEUROLOGICAL: Cranial nerves grossly intact. Normal speech, normal gait. Normal sensory, motor exams PSYCH: Normal mood, normal affect. SKIN: Warm, Dry, normal turgor, no rashes or lesions noted. Dictation was performed using [employer] voice recognition software Physical Exam - Vital signs Vitals: Pulse Ox 96 02/13/18 15:30 Course - Re-evaluation Re-evalutation: 02/13/18 19:41 Patient's presentation is most consistent with acute renal failure secondary to dehydration urinary tract infection, patient will be started on antibiotics given IV fluids, after conversation with her and her family of home there is about 10-15 family members it is noted that they would prefer patient made a DNR I did speak with patient's primary care physician will admit to service - Vital Signs Vital signs: Temp Pulse Resp BP Pulse Ox 17 126/48 H 94 02/13/18 17:16 02/13/18 17:16 02/13/18 17:16 - Laboratory Result Diagrams: 02/13/18 16:00 02/13/18 16:00 Laboratory results interpreted by me: 02/13/18 02/13/18 16:00 16:00 RBC 3.71 L Hgb 11.6 L Hct 34.8 L RDW 15.9 H Plt Count 121 L Chloride 111 H Carbon Dioxide 20 L BUN 39 H Creatinine 1.43 H Est GFR ( Amer) 42 L Est GFR (Non-Af Amer) 35 L Creatine Kinase 22 L Total Protein 5.5 L Albumin 2.8 L - Diagnostic Test Radiology reviewed: Image reviewed, Reports reviewed Discharge - Discharge Clinical Impression: DNR (do not resuscitate), Weakness Acute renal failure Qualifiers: Acute renal failure type: unspecified Qualified Code(s): N17.9 - Acute kidney failure, unspecified UTI (urinary tract infection) Qualifiers: Urinary tract infection type: acute cystitis Hematuria presence: without hematuria Qualified Code(s): N30.00 - Acute cystitis without hematuria Condition: Fair Disposition: ADMITTED OBSERVATION Admitting Provider: [facility] Admitted: Telemetry
[2018-02-13 18:21] LABS: APPEARANCE,URINE CLOUDY; BILIRUBIN,URINE NEGATIVE (NEGATIVE); COLOR,URINE STRAW; GLUCOSE, URINE NEGATIVE (NEGATIVE); KETONES,URINE NEGATIVE (NEGATIVE); LEUKOCYTE ESTERASE,URINE LARGE (NEGATIVE); NITRITE,URINE NEGATIVE (NEGATIVE); PROTEIN,URINE 30 mg/dL (NEGATIVE); URINE SPECIFIC GRAVITY 1.007; UROBILINOGEN,URINE NEGATIVE mg/dL (<2.0)
[2018-02-13] MEDS ORDERED: CEFTRIAXONE INJ 1000 MG VIAL IV ONE (19:06)
--- NOTE | 2018-02-13 19:06 | EKG REPORT ---
SEVERITY:- ABNORMAL ECG - ATRIAL-VENTRICULAR DUAL-PACED COMPLEXES PVC : Confirmed by: Scooter Webster MD 13-Feb-2018 19:06:26
--- NOTE | 2018-02-13 19:23 | RADIOLOGY REPORT (SQ) ---
EXAM DESCRIPTION: CT HEAD WITHOUT COMPLETED DATE/TIME: 02/13/2018 7:12 pm REASON FOR STUDY: unresposiveness R40.1 STUPOR COMPARISON: 12/09/2017. TECHNIQUE: Axial images acquired through the brain without intravenous contrast. Images reviewed wi th bone, brain and subdural windows. Additional sagittal and coronal reconstructions were generated. Images stored on PACS. All CT scanners at this facility use dose modulation, iterative reconstruction, and/or weight based d osing when appropriate to reduce radiation dose to as low as reasonably achievable (ALARA). [facility]: Dose Right [facility]: CareDose [facility]: Dose Right [facility]: Teradose 4D [facility]: Smart Tappx RADIATION DOSE: CT Rad equipment meets quality standard of care and radiation dose reduction techniq ues were employed. CTDIvol: 53.2 mGy. DLP: 991 mGy-cm.mGy. LIMITATIONS: None. FINDINGS: VENTRICLES: Prominent. CEREBRUM: No masses. No hemorrhage. No midline shift. Areas of low density in the white matter mos t likely due to chronic micro-vascular ischemic change. No evidence for acute infarction. CEREBELLUM: No masses. No hemorrhage. No alteration of density. No evidence for acute infarction. EXTRAAXIAL SPACES: Age-related involutional change. No fluid collections. No masses. ORBITS AND GLOBE: No intra- or extraconal masses. Normal contour of globe without masses. CALVARIUM: No fracture. PARANASAL SINUSES: No fluid or mucosal thickening. SOFT TISSUES: No mass or hematoma. OTHER: No other significant finding. IMPRESSION: CHRONIC CHANGES OF ATROPHY AND MICROVASCULAR ISCHEMIA. NO ACUTE PROCESS. EVIDENCE OF ACUTE STROKE: NO. TECHNICAL DOCUMENTATION: JOB ID: [id number] Quality ID # [id number]: Final reports with documentation of one or more dose reduction techniques (e.g., Au tomated exposure control, adjustment of the mA and/or kV according to patient size, use of iterative reconstruction technique) 2010 [employer]- All Rights Reserved Reading location - IP/workstation name: [email or web address]
[2018-02-13] MEDS ORDERED: NORMAL SALINE 1000 ML 1,000 ML IV PRN (20:26)
[2018-02-13 21:38] LABS: ARTERIAL BLOOD BASE EXCESS -9.2 mmol/L; ARTERIAL BLOOD FIO2 21%; ARTERIAL BLOOD HCO3 13.9 mmol/L (20-26); ARTERIAL BLOOD O2 SATURATION 96.3 % (94-98); ARTERIAL BLOOD PCO2 23.2 mmHg (35-45); ARTERIAL BLOOD PO2 82.1 mmHg (80-100); ARTERIAL BLOOD TOTAL CO2 14.6 mmol/L (21-25)
[2018-02-13] MEDS ORDERED: SACUBITRIL/VALSARTAN 49 MG/51 MG TABLET PO ONE (22:30)
[2018-02-13] MEDS ORDERED: APIXABAN 2.5 MG TABLET PO ONE (22:30)
[2018-02-13] MEDS ORDERED: GABAPENTIN 300 MG CAPSULE PO ONE (22:30)
[2018-02-14] MEDS ORDERED: APIXABAN 2.5 MG TABLET ONE (00:16)
[2018-02-14] MEDS ORDERED: ACETAMINOPHEN 325 MG TABLET ONE (00:47)
[2018-02-14] MEDS: GABAPENTIN 300 MG CAPSULE PO SCH ×3 (06:31→21:13)
[2018-02-14] MEDS ORDERED: (PENDING PHARMACY ID) (Memantine Hcl/Donepezil Hcl [Namzaric 28 Mg-10 Mg Capsule] 1 CAP) PO SCH (10:00)
[2018-02-14] MEDS: ISOSORBIDE MONONITRATE 30 MG TAB.ER.24H PO SCH (11:17)
[2018-02-14] MEDS: METOPROLOL SUCCINATE 50 MG TAB.SR.24H PO SCH (11:17)
[2018-02-14] MEDS: APIXABAN 2.5 MG TABLET PO SCH (11:18)
[2018-02-14] MEDS: CHLORPHENIRAMINE MALEATE 4 MG TABLET PO SCH ×2 (11:18→17:42)
[2018-02-14] MEDS: LANSOPRAZOLE 15 MG TAB.RAP.DR PO SCH (11:18)
[2018-02-14] MEDS: SACUBITRIL/VALSARTAN 49 MG/51 MG TABLET PO SCH ×2 (11:19→17:43)
[2018-02-14] MEDS: CALCIUM CARBONATE 250 MG/VITAMIN D3 125 UNIT TABLET PO SCH (11:19)
[2018-02-14] MEDS: FERROUS SULFATE 325 MG TABLET PO SCH (11:19)
[2018-02-14] MEDS: ACETAMINOPHEN 325 MG TABLET PO SCH ×2 (11:22→17:42)
--- NOTE | 2018-02-14 12:03 | Physician Advisory Note ---
Physician Advisor ProgressNote .: Pursuant to the plan for Rain Durham, I have reviewed the medical record for this patient. Physician Advisor Statement: Please consider documenting, if you agree: 1. "Acute Kidney INjury due to intravascular volume depletion, baseline Cr is 0.88" 2. "Paroxysmal Afib" vs "Persistent Afib" 3. Type of CHF (ac/chr, syst/diast), or is "CHF" report in PM[facility] incorrect? ( ECHO 2016 = EF nl, mod MR) 4. "Mild pulmonary HTN" (by ECHO 2016) 5. Medical necessity, for both 4/ PM & 4/ PM documented separately/ specifically, even if reason(s) same. 6. If "Acute ___ [type] encephalopathy due to " is suspected, please document well the findings that support this dx, differentiating them from pt's baseline dementia findings. - GCS was 15, & pt "awake & able to answer ?s appropriately despite h/o Alzheimer's" per ED nurse, but had been "more weak & lethargic" per daughter. Status: Appropriately brought in as Obs to start. Medicare pt, has been in hospital care x 1MN so far. - If pt not yet clinically stabilized sufficiently for safe d/c later today, then may document clinical reasons pt continues to need hospital care/ monitoring for a 2nd MN (making it clear this is about the 2nd MN, & giving reason(s) for each MN, even if reason is same), & change to Inpatient status. - Pt w/bradypnea of 9 & 11 on 02/13. Bradycardia of 50's on /2 AM. Hypoxemia of 88% on RA on 2 AM - any increased work of breathing/retractions/need for O2 administration/workup? Cr still not baseline on 02/14? Still SOB? Nurse documented pt bedbound x 2 mo now, s/p recent leg surgery. - Which of these CONCERNS attending? Thanks! CK
--- NOTE | 2018-02-14 15:39 | PDOC H&P ---
History of Present Illness Admission Date/PCP: 02/13/18 17:37 JOÃO BRAGA MD History of Present Illness: VERONA VALDEZ is a 82 year old female, she has multiple comorbid conditions including chronic systolic and diastolic heart failure, pulmonary hypertension, dementia, history of pulmonary embolism, she was brought to the emergency room by family members for evaluation of patient's multiple symptoms including excessive lethargy, generalized body weakness and patient sense of doom. She felt she was dying and she endorses to family that she was dying. The daughter said she had back pain which was similar to the pain she had when she sustained heart attack years ago so she gave her nitroglycerin sublingually . When she arrived in the emergency room she was evaluated she was found to have a low blood pressure, she was lethargic the urinalysis was grossly abnormal does suggest urinary tract infection and the serum creatinine was elevated this was 1.43, she was recently admitted on discharge in this hospital on 01/26/2018 at that time the serum creatinine was 0.88 so it was felt that she has acute kidney injury most likely from dehydration. The last time she was admitted which was on 01/26/2018 at that time she was brought to the hospital by family member because of poor intake, fatigue and malaise in the emergency room she was found to have hypokalemia this was replaced and she was discharged home. I saw patient on the floor with family members, there were many family members with the patient in the room with the patient. The ABG on room air, pH was 7.40 , PCO2 23.2, PO2 82.1, bicarbonate 13.9, this suggests mixed acid-base disorder she has very impressive ABG, it seems that the primary acid-base disorder is metabolic acidosis with a well compensated respiratory component with a normalized pH, the lactic acid was normal. This ABG suggests a chronic metabolic process. when I saw patient on the floor she recognizes me but she is very slow to respond to verbal commands. She has not been very active since she sustained fracture. The emergency room physician made her a DNR status. Past Medical History Cardiac Medical History: Reports: Atrial Fibrillation, Coronary Artery Disease, Myocardial Infarction, Hyperlipidema, Hypertension, Pulmonary Embolism, Other - Chronic diastolic and systolic heart failure Musculoskeltal Medical History: Reports: Arthritis Psychiatric Medical History: Reports: Dementia Hematology: Reports: Anemia Past Surgical History Past Surgical History: Reports: Cardiac Catheterization - stents, Coronary Stent , Hysterectomy, Orthopedic Surgery - right hip left tib fib and left arm, Pacemaker - 2009 Social History Smoking Status: Former Smoker Frequency of Alcohol Use: None Hx Recreational Drug Use: No Drugs: None Hx Prescription Drug Abuse: No Family History Family History: Arthritis, CAD, CVA, DM, Hyperlipidemia, Hypertension, Malignancy Parental Family History Reviewed: Yes Children Family History Reviewed: Yes Sibling(s) Family History Reviewed.: Yes Medication/Allergy Home Medications: Acetaminophen [Tylenol Extra Strength 500 mg Tablet] 500 mg PO Q12 01/27/18 Apixaban [Eliquis 2.5 mg Tablet] 2.5 mg PO Q12 01/27/18 Calcium Carbonate/Vitamin D3 [Calcium 600 + Vit D Tablet] 1 tab PO DAILY Chlorpheniramine Maleate [Aller-Chlor 4 mg Tablet] 4 mg PO Q12 01/27/18 Ferrous Sulfate [Feosol 325 mg Tablet] 325 mg PO DAILY 01/27/18 Gabapentin [Neurontin 300 mg Capsule] 300 mg PO Q8 01/27/18 Hydrocodone/Acetaminophen [[place] 5-325 Tablet] 1 tab PO Q6HP PRN 01/27/18 Isosorbide Mononitrate [Imdur 30 mg Tablet.er] 30 mg PO DAILY 01/27/18 Memantine HCl/Donepezil HCl [Namzaric 28 mg-10 mg Capsule] 1 cap PO DAILY Omeprazole 20 mg PO DAILY 01/27/18 Rosuvastatin Calcium [Crestor 5 mg Tablet] 5 mg PO DAILY 01/27/18 Sacubitril/Valsartan [Entresto 49 mg/51 mg Tablet] 1 tab PO BID 01/27/18 Cyanocobalamin (Vitamin B-12) [Vitamin B-12 Inj 1000 Mcg/1 ml Vial] 1,000 mcg IM [id number] 02/14/18 Furosemide [Lasix 20 mg Tablet] 20 mg PO Q12 02/14/18 Metoprolol Succinate [Toprol Xl] 25 mg PO Q12 02/14/18 Potassium Chloride [Klor-Con 10] 10 meq PO DAILY 02/14/18 Allergies/Adverse Reactions: strawberry [[place]] Allergy (Intermediate, Verified 01/26/18 23:50) RASH Review of Systems ROS unobtainable: Due to mental status Physical Exam Vital Signs: Temp Pulse Resp BP Pulse Ox 97.2 F 53 L 16 135/54 H 94 02/14/18 12:58 02/14/18 14:05 02/14/18 12:58 02/14/18 12:58 02/14/18 12:58 Intake & Output 02/13/18 02/14/18 02/15/18 06:59 06:59 06:59 Intake Total 750 Balance 750 Weight 54.8 kg 54.8 kg General appearance: PRESENT: no acute distress Eye exam: PRESENT: PERRLA Mouth exam: PRESENT: dry mucosa Respiratory exam: PRESENT: clear to auscultation kit Cardiovascular exam: PRESENT: +S1, +S2 GI/Abdominal exam: PRESENT: soft Neurological exam: PRESENT: altered Results Laboratory Results: 02/13/18 02/13/18 02/14/18 18:00 21:20 06:31 Carbonic Acid 0.70 L HCO3/H2CO3 Ratio 19:1 ABG pH 7.40 ABG pCO2 23.2 L ABG pO2 82.1 ABG HCO3 13.9 L ABG O2 Saturation 96.3 ABG Base Excess -9.2 FiO2 21% Lactic Acid 2.2 H Urine Color STRAW Urine Appearance CLOUDY Urine pH 5.0 Ur Specific [place] 1.007 Urine Protein 30 H Urine Glucose (UA) NEGATIVE Urine Ketones NEGATIVE Urine Blood MODERATE H Urine Nitrite NEGATIVE Ur Leukocyte Esterase LARGE H Urine WBC (Auto) >182 Urine RBC (Auto) 4 02/14/18 10:51 Carbonic Acid HCO3/H2CO3 Ratio ABG pH ABG pCO2 ABG pO2 ABG HCO3 ABG O2 Saturation ABG Base Excess FiO2 Lactic Acid 1.4 Urine Color Urine Appearance Urine pH Ur Specific [place] Urine Protein Urine Glucose (UA) Urine Ketones Urine Blood Urine Nitrite Ur Leukocyte Esterase Urine WBC (Auto) Urine RBC (Auto) 02/13/18 19:35 Troponin I < 0.012 Impressions: Head CT 02/13/18 00:00 IMPRESSION: CHRONIC CHANGES OF ATROPHY AND MICROVASCULAR ISCHEMIA. NO ACUTE PROCESS. EVIDENCE OF ACUTE STROKE: NO. Chest X-Ray 02/13/18 15:42 IMPRESSION: NO ACUTE RADIOGRAPHIC FINDING IN THE CHEST. Assessment & Plan - Diagnosis (1) Acute kidney injury Is this a current diagnosis for this admission?: Yes Plan: This is most likely prerenal dehydration (2) Urinary tract infection Qualifiers: Urinary tract infection type: acute cystitis Hematuria presence: without hematuria Qualified Code(s): N30.00 - Acute cystitis without hematuria Is this a current diagnosis for this admission?: Yes Plan: She will empirically be treated with IV antibiotic for UTI (3) Mixed acid base balance disorder Is this a current diagnosis for this admission?: Yes (4) Chronic combined systolic (congestive) and diastolic (congestive) heart failure Is this a current diagnosis for this admission?: Yes (5) AD (Alzheimer's disease) Qualifiers: Alzheimer's disease onset: late-onset Dementia behavioral disturbance: without behavioral disturbance Qualified Code(s): G30.1 - Alzheimer's disease with late onset; F02.80 - Dementia in other diseases classified elsewhere without behavioral disturbance; F02.80 - Dementia in other diseases classified elsewhere without behavioral disturbance; F02.80 - Dementia in other diseases classified elsewhere without behavioral disturbance Is this a current diagnosis for this admission?: Yes
[2018-02-14 16:03] LABS: ALANINE AMINOTRANSFERASE 21 U/L (9-52); ALBUMIN 2.5 g/dL (3.5-5.0); ALKALINE PHOSPHATASE 84 U/L (38-126); ANION GAP 12 (5-19); ASPARTATE AMINO TRANSFERASE 18 U/L (14-36); BILIRUBIN,DIRECT 0.4 mg/dL (0.0-0.4); BILIRUBIN,TOTAL 0.4 mg/dL (0.2-1.3); BLOOD UREA NITROGEN 26 mg/dL (7-20); CALCIUM 8.1 mg/dL (8.4-10.2); CARBON DIOXIDE 13 mmol/L (22-30); CHLORIDE 120 mmol/L (98-107); GLUCOSE 73 mg/dL (75-110); POTASSIUM 4.2 mmol/L (3.6-5.0); SODIUM 144.7 mmol/L (137-145); TOTAL PROTEIN 5.1 g/dL (6.3-8.2)
--- NOTE | 2018-02-14 16:22 | PDOC PROGRESS REPORT ---
Subjective Progress Note for:: 02/14/18 Subjective:: Patient was seen by the bedside, she is very lethargic, this raises suspicion for STONEMASON infection, unfortunately we cannot obtain spinal tap because she is on anticoagulant, the anticoagulant must be on hold for at least 4 days, she will empirically be treated with meningitic dose of antibiotic and also antiviral acyclovir to cover for potential herpes meningoencephalitis,She has mixed acid- base disorder on review of the ABG the primary acid-base disorder is metabolic acidosis with compensatory respiratory component Reason For Visit: ENCEPHALOPATHY, DEHYDRATION Physical Exam Vital Signs: Temp Pulse Resp BP Pulse Ox 98.1 F 68 18 137/77 H 96 02/14/18 15:40 02/14/18 15:40 02/14/18 15:40 02/14/18 15:40 02/14/18 15:40 Intake & Output 02/13/18 02/14/18 02/15/18 06:59 06:59 06:59 Intake Total 750 Balance 750 Weight 54.8 kg 54.8 kg General appearance: PRESENT: mild distress Respiratory exam: PRESENT: clear to auscultation kit, other - Hyperventilating Cardiovascular exam: PRESENT: +S1, +S2 Neurological exam: PRESENT: altered Results Laboratory Results: 02/14/18 15:30 02/13/18 02/13/18 02/14/18 18:00 21:20 06:31 Carbonic Acid 0.70 L HCO3/H2CO3 Ratio 19:1 ABG pH 7.40 ABG pCO2 23.2 L ABG pO2 82.1 ABG HCO3 13.9 L ABG O2 Saturation 96.3 ABG Base Excess -9.2 FiO2 21% Sodium Potassium Chloride Carbon Dioxide Anion Gap BUN Creatinine Est GFR ( Amer) Est GFR (Non-Af Amer) Glucose Lactic Acid 2.2 H Calcium Total Bilirubin AST ALT Alkaline Phosphatase Total Protein Albumin Urine Color STRAW Urine Appearance CLOUDY Urine pH 5.0 Ur Specific [place] 1.007 Urine Protein 30 H Urine Glucose (UA) NEGATIVE Urine Ketones NEGATIVE Urine Blood MODERATE H Urine Nitrite NEGATIVE Ur Leukocyte Esterase LARGE H Urine WBC (Auto) >182 Urine RBC (Auto) 4 02/14/18 02/14/18 10:51 15:30 Carbonic Acid HCO3/H2CO3 Ratio ABG pH ABG pCO2 ABG pO2 ABG HCO3 ABG O2 Saturation ABG Base Excess FiO2 Sodium 144.7 Potassium 4.2 Chloride 120 H Carbon Dioxide 13 L Anion Gap 12 BUN 26 H Creatinine 1.06 Est GFR ( Amer) > 60 Est GFR (Non-Af Amer) 50 L Glucose 73 L Lactic Acid 1.4 Calcium 8.1 L Total Bilirubin 0.4 AST 18 ALT 21 Alkaline Phosphatase 84 Total Protein 5.1 L Albumin 2.5 L Urine Color Urine Appearance Urine pH Ur Specific [place] Urine Protein Urine Glucose (UA) Urine Ketones Urine Blood Urine Nitrite Ur Leukocyte Esterase Urine WBC (Auto) Urine RBC (Auto) 02/13/18 19:35 Troponin I < 0.012 Impressions: Head CT 02/13/18 00:00 IMPRESSION: CHRONIC CHANGES OF ATROPHY AND MICROVASCULAR ISCHEMIA. NO ACUTE PROCESS. EVIDENCE OF ACUTE STROKE: NO. Chest X-Ray 02/13/18 15:42 IMPRESSION: NO ACUTE RADIOGRAPHIC FINDING IN THE CHEST. Assessment & Plan - Diagnosis (1) Acute kidney injury Is this a current diagnosis for this admission?: Yes (2) Urinary tract infection Qualifiers: Urinary tract infection type: acute cystitis Hematuria presence: without hematuria Qualified Code(s): N30.00 - Acute cystitis without hematuria Is this a current diagnosis for this admission?: Yes (3) Mixed acid base balance disorder Is this a current diagnosis for this admission?: Yes (4) Chronic combined systolic (congestive) and diastolic (congestive) heart failure Is this a current diagnosis for this admission?: Yes (5) AD (Alzheimer's disease) Qualifiers: Alzheimer's disease onset: late-onset Dementia behavioral disturbance: without behavioral disturbance Qualified Code(s): G30.1 - Alzheimer's disease with late onset; F02.80 - Dementia in other diseases classified elsewhere without behavioral disturbance; F02.80 - Dementia in other diseases classified elsewhere without behavioral disturbance; F02.80 - Dementia in other diseases classified elsewhere without behavioral disturbance Is this a current diagnosis for this admission?: Yes (6) Meningoencephalitis Is this a current diagnosis for this admission?: Yes Plan: Start meningitic doses of Rocephin, vancomycin and acyclovir
[2018-02-14] MEDS ORDERED: VANCOMYCIN HCL 0 MG in DEXTROSE 5%-WATER 250 ML IV NR (16:30)
[2018-02-14 17:22] LABS: INTERNATIONAL RATION (INR) 1.41; PARTIAL THROMBOPLASTIN TIME 37.8 SEC (23.5-35.8); PROTHROMBIN TIME 18.1 SEC (11.4-15.4)
[2018-02-14] MEDS ORDERED: VANCOMYCIN HCL 1,250 MG in DEXTROSE 5%-WATER 250 ML IV ONE (17:30)
[2018-02-14] MEDS: DEXTROSE 5%-1/2 NORMAL SALINE 1,000 ML IV PRN (17:35)
[2018-02-14] MEDS: CEFTRIAXONE 2 GM/D5W RTU 2 GM/50 ML RTUPB IV SCH (17:41)
[2018-02-14] MEDS ORDERED: CEFTRIAXONE SODIUM 1,000 MG in NORMAL SALINE 100 ML IV SCH (18:00)
[2018-02-14] MEDS ORDERED: CEFTRIAXONE 1 GM/D5W RTU 1 GM/50 ML RTUPB IV SCH (18:00)
[2018-02-14] MEDS: ACYCLOVIR SODIUM 500 MG in NORMAL SALINE 100 ML IV SCH (18:42)
[2018-02-14] MEDS: ATORVASTATIN CALCIUM 10 MG TABLET PO SCH (21:11)
[2018-02-15] MEDS: ACYCLOVIR SODIUM 500 MG in NORMAL SALINE 100 ML IV SCH ×3 (01:53→17:14)
[2018-02-15] MEDS: GABAPENTIN 300 MG CAPSULE PO SCH ×3 (05:21→22:09)
[2018-02-15] MEDS: CHLORPHENIRAMINE MALEATE 4 MG TABLET PO SCH ×2 (09:56→17:15)
[2018-02-15] MEDS: FERROUS SULFATE 325 MG TABLET PO SCH (09:56)
[2018-02-15] MEDS: ACETAMINOPHEN 325 MG TABLET PO SCH ×2 (09:56→17:15)
[2018-02-15] MEDS: CALCIUM CARBONATE 250 MG/VITAMIN D3 125 UNIT TABLET PO SCH (09:57)
[2018-02-15] MEDS: LANSOPRAZOLE 15 MG TAB.RAP.DR PO SCH (09:57)
[2018-02-15] MEDS: SACUBITRIL/VALSARTAN 49 MG/51 MG TABLET PO SCH ×2 (09:58→17:15)
[2018-02-15] MEDS: METOPROLOL SUCCINATE 50 MG TAB.SR.24H PO SCH (10:04)
[2018-02-15] MEDS: ISOSORBIDE MONONITRATE 30 MG TAB.ER.24H PO SCH (10:04)
[2018-02-15] MEDS: DEXTROSE 5%-1/2 NORMAL SALINE 1,000 ML IV PRN (12:03)
[2018-02-15 15:09] LABS: ABSOLUTE BASOPHILS # (AUTO) 0.1 10^3/uL (0.0-0.2); ABSOLUTE EOSINOPHILS # (AUTO) 0.2 10^3/uL (0.0-0.6); ABSOLUTE LYMPHOCYTES (AUTO) 1.8 10^3/uL (0.5-4.7); ABSOLUTE MONOCYTES (AUTO) 0.3 10^3/uL (0.1-1.4); ABSOLUTE NEUT (AUTO) 3.8 10^3/uL (1.7-8.2); BASOPHILS % (AUTO) 1.3 % (0-2); EOSINOPHILS % (AUTO) 3.9 % (0-6); HEMATOCRIT 36.7 % (36.0-47.0); HEMOGLOBIN 11.9 g/dL (12.0-15.5); LYMPHOCYTES % (AUTO) 29.4 % (13-45); MEAN CORPUSCULAR HEMOGLOBIN 30.6 pg (27.0-33.4); MEAN CORPUSCULAR HGB CONC 32.4 g/dL (32.0-36.0); MEAN CORPUSCULAR VOLUME 94 fl (80-97); MONOCYTES % (AUTO) 5.3 % (3-13); PLATELET COUNT 127 10^3/uL (150-450); RED BLOOD COUNT 3.89 10^6/uL (3.72-5.28); SEGMENTED NEUTROPHILS % (AUTO) 60.1 % (42-78); TOTAL CELLS COUNTED % (AUTO) 100 %; WHITE BLOOD COUNT 6.3 10^3/uL (4.0-10.5)
[2018-02-15 15:18] LABS: ALANINE AMINOTRANSFERASE 13 U/L (9-52); ALBUMIN 2.4 g/dL (3.5-5.0); ALKALINE PHOSPHATASE 84 U/L (38-126); ANION GAP 9 (5-19); ASPARTATE AMINO TRANSFERASE 19 U/L (14-36); BILIRUBIN,DIRECT 0.3 mg/dL (0.0-0.4); BILIRUBIN,TOTAL 0.3 mg/dL (0.2-1.3); BLOOD UREA NITROGEN 17 mg/dL (7-20); CARBON DIOXIDE 15 mmol/L (22-30); CHLORIDE 117 mmol/L (98-107); GLUCOSE 142 mg/dL (75-110); POTASSIUM 3.5 mmol/L (3.6-5.0); SODIUM 141.4 mmol/L (137-145)
[2018-02-15] MEDS ORDERED: POTASSIUM CHLORIDE 20 MEQ/15 ML UDCUP PO ONE (18:15)
[2018-02-15] MEDS: CEFTRIAXONE 2 GM/D5W RTU 2 GM/50 ML RTUPB IV SCH (18:21)
--- NOTE | 2018-02-15 20:28 | PDOC PROGRESS REPORT ---
Subjective Progress Note for:: 02/15/18 Subjective:: She was seen by the bedside, she is presently on IV antibiotic empirically for the treatment of meningoencephalitis, a lumbar puncture could not be done immediately because of the fact that she is on anticoagulant, the suspicion for RETAIL SERVICE TECHNICIAN infection is low but in the absence of a reasonable explanation for the altered mental status it was felt that it is appropriate to treat empirically for RETAIL SERVICE TECHNICIAN infections especially herpes meningoencephalitis hopefully on after the lumbar puncture is done ,RETAIL SERVICE TECHNICIAN could be rule out ,the nurse stated that she is eating well today and she is more alert and responsive Reason For Visit: MENINGITIS Physical Exam Vital Signs: Temp Pulse Resp BP Pulse Ox 98.2 F 111 H 16 122/46 L 96 02/15/18 15:28 02/15/18 15:28 02/15/18 15:28 02/15/18 15:28 02/15/18 15:28 Intake & Output 02/14/18 02/15/18 02/16/18 06:59 06:59 06:59 Intake Total 750 1017 1194 Balance 750 1017 1194 Weight 54.8 kg 42.3 kg General appearance: PRESENT: no acute distress Eye exam: PRESENT: PERRLA Respiratory exam: PRESENT: clear to auscultation ikt Cardiovascular exam: PRESENT: +S1, +S2 GI/Abdominal exam: PRESENT: soft Neurological exam: PRESENT: alert Results Laboratory Results: 02/15/18 14:40 02/15/18 14:40 02/15/18 02/15/18 14:40 14:40 WBC 6.3 RBC 3.89 Hgb 11.9 L Hct 36.7 MCV 94 MCH 30.6 MCHC 32.4 RDW 16.0 H Plt Count 127 L Seg Neutrophils % 60.1 Lymphocytes % 29.4 Monocytes % 5.3 Eosinophils % 3.9 Basophils % 1.3 Absolute Neutrophils 3.8 Absolute Lymphocytes 1.8 Absolute Monocytes 0.3 Absolute Eosinophils 0.2 Absolute Basophils 0.1 Sodium 141.4 Potassium 3.5 L Chloride 117 H Carbon Dioxide 15 L Anion Gap 9 BUN 17 Creatinine 0.82 Est GFR ( Amer) > 60 Est GFR (Non-Af Amer) > 60 Glucose 142 H Calcium 8.0 L Total Bilirubin 0.3 AST 19 ALT 13 Alkaline Phosphatase 84 Total Protein 5.0 L Albumin 2.4 L 02/13/18 19:35 Troponin I < 0.012 Impressions: Head CT 02/13/18 00:00 IMPRESSION: CHRONIC CHANGES OF ATROPHY AND MICROVASCULAR ISCHEMIA. NO ACUTE PROCESS. EVIDENCE OF ACUTE STROKE: NO. Chest X-Ray 02/13/18 15:42 IMPRESSION: NO ACUTE RADIOGRAPHIC FINDING IN THE CHEST. Assessment & Plan - Diagnosis (1) Acute kidney injury Is this a current diagnosis for this admission?: Yes (2) Urinary tract infection Qualifiers: Urinary tract infection type: acute cystitis Hematuria presence: without hematuria Qualified Code(s): N30.00 - Acute cystitis without hematuria Is this a current diagnosis for this admission?: Yes (3) Mixed acid base balance disorder Is this a current diagnosis for this admission?: Yes (4) Chronic combined systolic (congestive) and diastolic (congestive) heart failure Is this a current diagnosis for this admission?: Yes (5) AD (Alzheimer's disease) Qualifiers: Alzheimer's disease onset: late-onset Dementia behavioral disturbance: without behavioral disturbance Qualified Code(s): G30.1 - Alzheimer's disease with late onset; F02.80 - Dementia in other diseases classified elsewhere without behavioral disturbance; F02.80 - Dementia in other diseases classified elsewhere without behavioral disturbance; F02.80 - Dementia in other diseases classified elsewhere without behavioral disturbance Is this a current diagnosis for this admission?: Yes (6) Meningoencephalitis Is this a current diagnosis for this admission?: Yes Plan: Continue empiric treatment
[2018-02-15] MEDS: VANCOMYCIN HCL 750 MG in DEXTROSE 5%-WATER 250 ML IV SCH (22:09)
[2018-02-15] MEDS: ATORVASTATIN CALCIUM 10 MG TABLET PO SCH (22:09)
[2018-02-16] MEDS: ACYCLOVIR SODIUM 500 MG in NORMAL SALINE 100 ML IV SCH ×3 (01:55→23:48)
[2018-02-16] MEDS: GABAPENTIN 300 MG CAPSULE PO SCH ×2 (05:11→13:00)
[2018-02-16 05:29] LABS: ALANINE AMINOTRANSFERASE 16 U/L (9-52); ALBUMIN 2.7 g/dL (3.5-5.0); ALKALINE PHOSPHATASE 91 U/L (38-126); ANION GAP 9 (5-19); ASPARTATE AMINO TRANSFERASE 21 U/L (14-36); BILIRUBIN,DIRECT 0.2 mg/dL (0.0-0.4); BILIRUBIN,TOTAL 0.3 mg/dL (0.2-1.3); BLOOD UREA NITROGEN 12 mg/dL (7-20); CALCIUM 8.1 mg/dL (8.4-10.2); CARBON DIOXIDE 18 mmol/L (22-30); CHLORIDE 116 mmol/L (98-107); GLUCOSE 81 mg/dL (75-110); POTASSIUM 3.9 mmol/L (3.6-5.0); TOTAL PROTEIN 5.5 g/dL (6.3-8.2)
[2018-02-16 05:34] LABS: ABSOLUTE BASOPHILS # (AUTO) 0.1 10^3/uL (0.0-0.2); ABSOLUTE EOSINOPHILS # (AUTO) 0.3 10^3/uL (0.0-0.6); ABSOLUTE LYMPHOCYTES (AUTO) 2.4 10^3/uL (0.5-4.7); ABSOLUTE MONOCYTES (AUTO) 0.5 10^3/uL (0.1-1.4); ABSOLUTE NEUT (AUTO) 4.3 10^3/uL (1.7-8.2); BASOPHILS % (AUTO) 1.2 % (0-2); EOSINOPHILS % (AUTO) 3.7 % (0-6); HEMATOCRIT 37.4 % (36.0-47.0); HEMOGLOBIN 12.4 g/dL (12.0-15.5); LYMPHOCYTES % (AUTO) 31.4 % (13-45); MEAN CORPUSCULAR HEMOGLOBIN 30.9 pg (27.0-33.4); MEAN CORPUSCULAR HGB CONC 33.1 g/dL (32.0-36.0); MEAN CORPUSCULAR VOLUME 93 fl (80-97); MONOCYTES % (AUTO) 6.2 % (3-13); RED BLOOD COUNT 4.01 10^6/uL (3.72-5.28); RED CELL DISTRIBUTION WIDTH 15.5 % (11.5-14.0); SEGMENTED NEUTROPHILS % (AUTO) 57.5 % (42-78); TOTAL CELLS COUNTED % (AUTO) 100 %; WHITE BLOOD COUNT 7.5 10^3/uL (4.0-10.5)
[2018-02-16 05:43] LABS: PLATELET COUNT 98 10^3/uL (150-450)
[2018-02-16] MEDS: ACETAMINOPHEN 325 MG TABLET PO SCH ×2 (09:59→18:41)
[2018-02-16] MEDS: ISOSORBIDE MONONITRATE 30 MG TAB.ER.24H PO SCH (09:59)
[2018-02-16] MEDS: LANSOPRAZOLE 15 MG TAB.RAP.DR PO SCH (09:59)
[2018-02-16] MEDS: FERROUS SULFATE 325 MG TABLET PO SCH (10:00)
[2018-02-16] MEDS: METOPROLOL SUCCINATE 50 MG TAB.SR.24H PO SCH (10:00)
[2018-02-16] MEDS: SACUBITRIL/VALSARTAN 49 MG/51 MG TABLET PO SCH (10:00)
[2018-02-16] MEDS: CALCIUM CARBONATE 250 MG/VITAMIN D3 125 UNIT TABLET PO SCH (10:00)
[2018-02-16] MEDS: CHLORPHENIRAMINE MALEATE 4 MG TABLET PO SCH ×2 (10:00→18:41)
[2018-02-16] MEDS: DEXTROSE 5%-1/2 NORMAL SALINE 1,000 ML IV PRN (15:15)
--- NOTE | 2018-02-16 16:24 | PDOC PROGRESS REPORT ---
Subjective Progress Note for:: 02/16/18 Subjective:: She was seen by the bedside, she is presently on IV antibiotic empirically for the treatment of meningoencephalitis, a lumbar puncture could not be done immediately because of the fact that she is on anticoagulant, the suspicion for SUPPLY CRIB ATTENDANT infection is low but in the absence of a reasonable explanation for the altered mental status it was felt that it is appropriate to treat empirically for SUPPLY CRIB ATTENDANT infections especially herpes meningoencephalitis hopefully on after the lumbar puncture is done ,SUPPLY CRIB ATTENDANT could be rule out ,the nurse stated that she is eating well today and she is more alert and responsive Reason For Visit: MENINGITIS Physical Exam Vital Signs: Temp Pulse Resp BP Pulse Ox 97.5 F 75 14 92/44 L 95 02/16/18 11:49 02/16/18 11:49 02/16/18 11:49 02/16/18 11:49 02/16/18 11:49 Intake & Output 02/15/18 02/16/18 02/17/18 06:59 06:59 06:59 Intake Total 1017 1998 118 Balance 1017 1998 118 Weight 42.3 kg 55.8 kg General appearance: PRESENT: no acute distress Head exam: PRESENT: atraumatic, normocephalic Eye exam: PRESENT: conjunctiva pink, EOMI, PERRLA Ear exam: PRESENT: normal external ear exam Mouth exam: PRESENT: moist, tongue midline Neck exam: PRESENT: full ROM Respiratory exam: PRESENT: clear to auscultation kit Cardiovascular exam: PRESENT: RRR, +S1, +S2 Pulses: PRESENT: normal dorsalis pedis pul, +2 pedal pulses bilateral Vascular exam: PRESENT: normal capillary refill GI/Abdominal exam: PRESENT: normal bowel sounds, soft Rectal exam: PRESENT: deferred Neurological exam: PRESENT: alert, CN II-XII grossly intact Skin exam: PRESENT: dry, intact, warm. ABSENT: cyanosis, rash Results Laboratory Results: 02/16/18 05:02 02/16/18 05:07 02/16/18 02/16/18 05:02 05:07 WBC 7.5 RBC 4.01 Hgb 12.4 Hct 37.4 MCV 93 MCH 30.9 MCHC 33.1 RDW 15.5 H Plt Count 98 L Seg Neutrophils % 57.5 Lymphocytes % 31.4 Monocytes % 6.2 Eosinophils % 3.7 Basophils % 1.2 Absolute Neutrophils 4.3 Absolute Lymphocytes 2.4 Absolute Monocytes 0.5 Absolute Eosinophils 0.3 Absolute Basophils 0.1 Sodium 143.0 Potassium 3.9 Chloride 116 H Carbon Dioxide 18 L Anion Gap 9 BUN 12 Creatinine 0.72 Est GFR ( Amer) > 60 Est GFR (Non-Af Amer) > 60 Glucose 81 Calcium 8.1 L Total Bilirubin 0.3 AST 21 ALT 16 Alkaline Phosphatase 91 Total Protein 5.5 L Albumin 2.7 L 02/13/18 19:35 Troponin I < 0.012 Impressions: Head CT 02/13/18 00:00 IMPRESSION: CHRONIC CHANGES OF ATROPHY AND MICROVASCULAR ISCHEMIA. NO ACUTE PROCESS. EVIDENCE OF ACUTE STROKE: NO. Chest X-Ray 02/13/18 15:42 IMPRESSION: NO ACUTE RADIOGRAPHIC FINDING IN THE CHEST. Assessment & Plan - Diagnosis (1) Acute kidney injury Is this a current diagnosis for this admission?: Yes (2) Urinary tract infection Qualifiers: Urinary tract infection type: acute cystitis Hematuria presence: without hematuria Qualified Code(s): N30.00 - Acute cystitis without hematuria Is this a current diagnosis for this admission?: Yes (3) Mixed acid base balance disorder Is this a current diagnosis for this admission?: Yes (4) Chronic combined systolic (congestive) and diastolic (congestive) heart failure Is this a current diagnosis for this admission?: Yes (5) AD (Alzheimer's disease) Qualifiers: Alzheimer's disease onset: late-onset Dementia behavioral disturbance: without behavioral disturbance Qualified Code(s): G30.1 - Alzheimer's disease with late onset; F02.80 - Dementia in other diseases classified elsewhere without behavioral disturbance; F02.80 - Dementia in other diseases classified elsewhere without behavioral disturbance; F02.80 - Dementia in other diseases classified elsewhere without behavioral disturbance Is this a current diagnosis for this admission?: Yes (6) Meningoencephalitis Is this a current diagnosis for this admission?: Yes Plan: Continue empiric treatment
[2018-02-16] MEDS ORDERED: SACUBITRIL/VALSARTAN 49 MG/51 MG TABLET PO SCH (18:00)
[2018-02-16] MEDS ORDERED: CEFTRIAXONE 2 GM/D5W RTU 2 GM/50 ML RTUPB IV ONE (23:00)
[2018-02-16] MEDS ORDERED: LIDOCAINE 0.5% INJ-PF (5 MG/ML) 50 ML SDV ONE (23:15)
[2018-02-16] MEDS: CEFTRIAXONE 2 GM/D5W RTU 2 GM/50 ML RTUPB IV SCH (23:48)
--- NOTE | 2018-02-16 23:56 | RADIOLOGY REPORT (SQ) ---
EXAM DESCRIPTION: CHEST SINGLE VIEW CLINICAL HISTORY: central line placement COMPARISON: 02/13/2018 FINDINGS: Single frontal view of the chest. Left-sided multilead pacemaker. Atherosclerotic calcification aortic arch. Heart is not enlarged. Right subclavian central venous catheter with tip in the SVC which is new from the previous study. Leads overlie the chest. No consolidation, pneumothorax, or pleural effusion. Degenerative change of the shoulders. No definite acute osseous abnormalities. Upper abdominal soft tissues are unremarkable. IMPRESSION: 1. Right subclavian central venous catheter with tip in the SVC near the atriocaval junction. No pneumothorax.
[2018-02-17] MEDS: VANCOMYCIN HCL 750 MG in DEXTROSE 5%-WATER 250 ML IV SCH (00:05)
[2018-02-17] MEDS: ATORVASTATIN CALCIUM 10 MG TABLET PO SCH ×2 (00:05→21:18)
[2018-02-17] MEDS: SACUBITRIL/VALSARTAN 49 MG/51 MG TABLET PO SCH ×3 (00:05→21:18)
[2018-02-17] MEDS: ACYCLOVIR SODIUM 500 MG in NORMAL SALINE 100 ML IV SCH ×2 (02:34→10:47)
[2018-02-17] MEDS: GABAPENTIN 300 MG CAPSULE PO SCH ×4 (05:37→21:18)
[2018-02-17] MEDS ORDERED: LIDOCAINE 1% INJ-PF (10 MG/ML) 30 ML SDV ONE (08:15)
[2018-02-17] MEDS: CALCIUM CARBONATE 250 MG/VITAMIN D3 125 UNIT TABLET PO SCH (10:49)
[2018-02-17] MEDS: CHLORPHENIRAMINE MALEATE 4 MG TABLET PO SCH ×2 (10:49→17:15)
[2018-02-17] MEDS: ACETAMINOPHEN 325 MG TABLET PO SCH ×2 (10:49→17:15)
[2018-02-17] MEDS: LANSOPRAZOLE 15 MG TAB.RAP.DR PO SCH (10:50)
[2018-02-17] MEDS: METOPROLOL SUCCINATE 50 MG TAB.SR.24H PO SCH (10:50)
[2018-02-17] MEDS: FERROUS SULFATE 325 MG TABLET PO SCH (10:50)
[2018-02-17] MEDS: ISOSORBIDE MONONITRATE 30 MG TAB.ER.24H PO SCH (10:50)
--- NOTE | 2018-02-17 11:06 | RADIOLOGY REPORT (SQ) ---
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 TECHNIQUE: Fluoroscopic guided lumbar puncture. LIMITATIONS: None. PROCEDURE: After written consent and assessment were obtained, the patient was brought into the fluo roscopy room and placed prone on the table. The patient's lower back was prepped in a sterile fashio n and several entry sites were selected under live fluoroscopic guidance. Entry sites were anestheti zed with 1% lidocaine. A 22 gauge spinal needle was advanced through the skin and into the spinal can al at the right paracentral L5-S1 labrum with no return of fluid. Other attempts at accessing the sp inal canal via right and left L2-3 paracentral approach for unsuccessful. Fluoroscopic imaging was used to localize entry sites. Digital images were saved to pac's demonstrat ing severe multilevel degenerative disc changes and bulky facet arthropathy at multiple lumbar levels . FINDINGS: Unsuccessful lumbar puncture under fluoroscopy. Dr. Amin notified. IMPRESSION: Unsuccessful lumbar puncture under fluoroscopy. COMMENT: Patient medication list reviewed: Yes- Quality ID# [id number]:Eligible professional attests to doc umenting in the medical record they obtained, updated, or reviewed the patient's current medications. . Quality ID 145: Final reports for procedures using fluoroscopy that document radiation exposure marc abigail, or exposure time and number of fluorographic images (if radiation exposure indices are not avail able) TECHNICAL DOCUMENTATION: JOB ID: [id number] [employer]- All Rights Reserved Reading location - IP/workstation name: [email or web address]
--- NOTE | 2018-02-17 11:59 | OPERATIVE REPORT E ---
Operative Report NAME: VERONA VALDEZ : 1935 AGE: 82Y DATE OF SURGERY: 02/16/2018 ROOM: 322 PREOPERATIVE DIAGNOSIS: Poor veins for IV access. POSTOPERATIVE DIAGNOSIS: Poor veins for IV access. OPERATION: Placement of right subclavian triple lumen catheter. SURGEON: PRICILLA NÚÑEZ M.D. ANESTHESIA: Local. INDICATION FOR PROCEDURE: This is an 82-year-old female who needed IV fluids and antibiotics and does not have any good peripheral lines for IV. DESCRIPTION OF PROCEDURE: With the help of the ultrasound, the left internal jugular vein was noted to be more prominent compared to the right side. Because of this, this vein was then identified to place a central line. The patient was placed in slight Trendelenburg position and the left neck prepped and draped in the usual sterile fashion. Local anesthesia infiltrated through the path of the internal jugular vein and the vein subsequently punctured and guidewire passed through the needle towards the direction of the superior vena cava. However, I can only put it to a distance of about 15 cm at most. This is most likely because of the pacemaker that she has on the right subclavian vein. Because of this, this procedure was then terminated and the right neck and the subclavian vein identified and prepped and draped in the usual sterile fashion. Local anesthesia infiltrated on the right subclavian infraclavicular area and the right subclavian vein punctured and guidewire passed through the needle towards the area of the superior vena cava. Puncture site was dilated and a triple lumen catheter inserted to a distance of about 14 cm. Guidewire was removed and all the 3 ports aspirated blood easily and instilled saline easily. Catheter was then anchored to the skin with 3-0 silk. Biopatch placed at the puncture site and a transparent sterile dressing was placed over the Biopatch and the catheter. A chest x-ray will be obtained for placement. The patient tolerated the procedure well. DICTATING PHYSICIAN: PRICILLA NÚÑEZ M.D. [id number] PHY#: [id number] ID: [id number] JOB#: [id number] ACCT: [id number] cc:PRICILLA NÚÑEZ M.D. >
[2018-02-17] MEDS: APIXABAN 2.5 MG TABLET PO SCH (17:22)
--- NOTE | 2018-02-17 20:23 | PDOC PROGRESS REPORT ---
Subjective Progress Note for:: 02/17/18 Subjective:: Patient was seen by the bedside the attempted lumbar puncture was unsuccessful, the suspicion for meningoencephalitis is very low in this patient, will discontinue IV antibiotic and also antiviral agent, she is much better she be discharged home in the morning. Reason For Visit: MENINGITIS Physical Exam Vital Signs: Temp Pulse Resp BP Pulse Ox 98.6 F 73 12 121/60 98 02/17/18 20:13 02/17/18 20:13 02/17/18 20:13 02/17/18 20:13 02/17/18 20:13 Intake & Output 02/16/18 02/17/18 02/18/18 06:59 06:59 06:59 Intake Total 1998 1595 786 Balance 1998 1595 786 Weight 55.8 kg 57.5 kg General appearance: PRESENT: no acute distress, well-developed, well-nourished Head exam: PRESENT: atraumatic, normocephalic Eye exam: PRESENT: conjunctiva pink, EOMI, PERRLA Ear exam: PRESENT: normal external ear exam Mouth exam: PRESENT: moist, tongue midline Neck exam: PRESENT: full ROM Cardiovascular exam: PRESENT: RRR, +S1, +S2 Pulses: PRESENT: normal dorsalis pedis pul, +2 pedal pulses bilateral Vascular exam: PRESENT: normal capillary refill GI/Abdominal exam: PRESENT: normal bowel sounds, soft Rectal exam: PRESENT: deferred Neurological exam: PRESENT: alert, awake, oriented to person, oriented to place , oriented to time, oriented to situation, CN II-XII grossly intact Psychiatric exam: PRESENT: appropriate affect, normal mood Skin exam: PRESENT: dry, intact, warm Results Laboratory Results: 02/16/18 05:02 02/16/18 05:07 02/13/18 19:35 Troponin I < 0.012 Impressions: Head CT 02/13/18 00:00 IMPRESSION: CHRONIC CHANGES OF ATROPHY AND MICROVASCULAR ISCHEMIA. NO ACUTE PROCESS. EVIDENCE OF ACUTE STROKE: NO. Chest X-Ray 02/16/18 00:00 IMPRESSION: 1. Right subclavian central venous catheter with tip in the SVC near the atriocaval junction. No pneumothorax. Lumbar Puncture 02/17/18 09:00 IMPRESSION: Unsuccessful lumbar puncture under fluoroscopy. Assessment & Plan - Diagnosis (1) Acute kidney injury Is this a current diagnosis for this admission?: Yes (2) Urinary tract infection Qualifiers: Urinary tract infection type: acute cystitis Hematuria presence: without hematuria Qualified Code(s): N30.00 - Acute cystitis without hematuria Is this a current diagnosis for this admission?: Yes (3) Mixed acid base balance disorder Is this a current diagnosis for this admission?: Yes (4) Chronic combined systolic (congestive) and diastolic (congestive) heart failure Is this a current diagnosis for this admission?: Yes (5) AD (Alzheimer's disease) Qualifiers: Alzheimer's disease onset: late-onset Dementia behavioral disturbance: without behavioral disturbance Qualified Code(s): G30.1 - Alzheimer's disease with late onset; F02.80 - Dementia in other diseases classified elsewhere without behavioral disturbance; F02.80 - Dementia in other diseases classified elsewhere without behavioral disturbance; F02.80 - Dementia in other diseases classified elsewhere without behavioral disturbance Is this a current diagnosis for this admission?: Yes (6) Meningoencephalitis Is this a current diagnosis for this admission?: Yes
--- NOTE | 2018-02-17 20:33 | PDOC DISCHARGE SUMMARY ---
General - Admit/Disc Date/PCP Admission Date/Primary Care Provider: 02/13/18 17:37 JOÃO BRAGA MD Discharge Date: 02/17/18 - Discharge Diagnosis (1) Acute kidney injury Is this a current diagnosis for this admission?: Yes (2) Urinary tract infection Is this a current diagnosis for this admission?: Yes (3) Mixed acid base balance disorder Is this a current diagnosis for this admission?: Yes (4) Chronic combined systolic (congestive) and diastolic (congestive) heart failure Is this a current diagnosis for this admission?: Yes (5) AD (Alzheimer's disease) Is this a current diagnosis for this admission?: Yes (6) Encephalopathy, unspecified Is this a current diagnosis for this admission?: Yes - Additional Information Resuscitation Status: Do Not Resuscitate Home Medications: Acetaminophen [Tylenol Extra Strength 500 mg Tablet] 500 mg PO Q12 01/27/18 Apixaban [Eliquis 2.5 mg Tablet] 2.5 mg PO Q12 01/27/18 Calcium Carbonate/Vitamin D3 [Calcium 600 + Vit D Tablet] 1 tab PO DAILY Chlorpheniramine Maleate [Aller-Chlor 4 mg Tablet] 4 mg PO Q12 01/27/18 Ferrous Sulfate [Feosol 325 mg Tablet] 325 mg PO DAILY 01/27/18 Gabapentin [Neurontin 300 mg Capsule] 300 mg PO Q8 01/27/18 Hydrocodone/Acetaminophen [[place] 5-325 Tablet] 1 tab PO Q6HP PRN 01/27/18 Isosorbide Mononitrate [Imdur 30 mg Tablet.er] 30 mg PO DAILY 01/27/18 Memantine HCl/Donepezil HCl [Namzaric 28 mg-10 mg Capsule] 1 cap PO DAILY Omeprazole 20 mg PO DAILY 01/27/18 Rosuvastatin Calcium [Crestor 5 mg Tablet] 5 mg PO DAILY 01/27/18 Sacubitril/Valsartan [Entresto 49 mg/51 mg Tablet] 1 tab PO BID 01/27/18 Cyanocobalamin (Vitamin B-12) [Vitamin B-12 Inj 1000 Mcg/1 ml Vial] 1,000 mcg IM [id number] 02/14/18 Furosemide [Lasix 20 mg Tablet] 20 mg PO Q12 04/02/18 Metoprolol Succinate [Toprol Xl] 25 mg PO Q12 02/14/18 Potassium Chloride [Klor-Con 10] 10 meq PO DAILY 02/14/18 History of Present Illness History of Present Illness: VERONA VALDEZ is a 82 year old female, she has multiple comorbid conditions including chronic systolic and diastolic heart failure, pulmonary hypertension, dementia, history of pulmonary embolism, she was brought to the emergency room by family members for evaluation of patient's multiple symptoms including excessive lethargy, generalized body weakness and patient sense of doom. She felt she was dying and she endorses to family that she was dying. The daughter said she had back pain which was similar to the pain she had when she sustained heart attack years ago so she gave her nitroglycerin sublingually . When she arrived in the emergency room she was evaluated she was found to have a low blood pressure, she was lethargic the urinalysis was grossly abnormal does suggest urinary tract infection and the serum creatinine was elevated this was 1.43, she was recently admitted on discharge in this hospital on 01/26/2018 at that time the serum creatinine was 0.88 so it was felt that she has acute kidney injury most likely from dehydration. The last time she was admitted which was on 01/26/2018 at that time she was brought to the hospital by family member because of poor intake, fatigue and malaise in the emergency room she was found to have hypokalemia this was replaced and she was discharged home. I saw patient on the floor with family members, there were many family members with the patient in the room with the patient. The ABG on room air, pH was 7.40 , PCO2 23.2, PO2 82.1, bicarbonate 13.9, this suggests mixed acid-base disorder she has very impressive ABG, it seems that the primary acid-base disorder is metabolic acidosis with a well compensated respiratory component with a normalized pH, the lactic acid was normal. This ABG suggests a chronic metabolic process. when I saw patient on the floor she recognizes me but she is very slow to respond to verbal commands. She has not been very active since she sustained fracture. The emergency room physician made her a DNR status. Hospital Course Hospital Course: Patient was admitted for the management of mixed acid-base disorder, acute kidney injury, unspecified encephalopathy, urinary tract infection. She has primary metabolic acidosis with respiratory compensation, the blood lactic acid level was normal, there was no definitive explanation for the altered mental status, patient expressed an endorses desire to be a DNR status. She was empirically treated for [employer] infection this suspicion for infectious meningoencephalitis is low but she was empirically treated with IV antibiotic, Rocephin, vancomycin and acyclovir to cover acute herpes encephalitis. Lumbar puncture was done under fluoroscopy but it was not successful, because of suspicion for acute meningoencephalitis was low she was taken off the IV antibiotic. She takes anticoagulant Eliquis this was held for 4 days before the lumbar puncture was done. Patient responded very well to the antibiotic but she also have UTI Physical Exam Vital Signs: Temp Pulse Resp BP Pulse Ox 98.6 F 73 12 121/60 98 02/17/18 20:13 02/17/18 20:13 02/17/18 20:13 02/17/18 20:13 02/17/18 20:13 Intake & Output 02/16/18 02/17/18 02/18/18 06:59 06:59 06:59 Intake Total 1998 1595 786 Balance 1998 1595 786 Weight 55.8 kg 57.5 kg General appearance: PRESENT: no acute distress Eye exam: PRESENT: PERRLA Respiratory exam: PRESENT: clear to auscultation kit Cardiovascular exam: PRESENT: +S1, +S2 GI/Abdominal exam: PRESENT: soft Neurological exam: PRESENT: alert Results Laboratory Results: 02/16/18 05:02 02/16/18 05:07 02/13/18 19:35 Troponin I < 0.012 Impressions: Head CT 02/13/18 00:00 IMPRESSION: CHRONIC CHANGES OF ATROPHY AND MICROVASCULAR ISCHEMIA. NO ACUTE PROCESS. EVIDENCE OF ACUTE STROKE: NO. Chest X-Ray 02/16/18 00:00 IMPRESSION: 1. Right subclavian central venous catheter with tip in the SVC near the atriocaval junction. No pneumothorax. Lumbar Puncture 02/17/18 09:00 IMPRESSION: Unsuccessful lumbar puncture under fluoroscopy. Qualifiers - * PATEINT BEING DISCHARGED WITH ANY OF THE FOLLOWING DIAGNOSIS?: No Plan Discharge Plan: She was made DNR status
[2018-02-17] MEDS ORDERED: CEFTRIAXONE 2 GM/D5W RTU 2 GM/50 ML RTUPB IV SCH (22:00)
[2018-02-17] MEDS: DEXTROSE 5%-1/2 NORMAL SALINE 1,000 ML IV PRN (23:17)
[2018-02-18] MEDS: GABAPENTIN 300 MG CAPSULE PO SCH (05:03)
[2018-02-18] MEDS ORDERED: LANSOPRAZOLE 15 MG TAB.RAP.DR PO SCH (06:00)
[2018-02-18 08:43] VITALS: BP 138/64
[2018-02-18] MEDS: ISOSORBIDE MONONITRATE 30 MG TAB.ER.24H PO SCH (09:37)
[2018-02-18] MEDS: SACUBITRIL/VALSARTAN 49 MG/51 MG TABLET PO SCH (09:37)
[2018-02-18] MEDS: METOPROLOL SUCCINATE 50 MG TAB.SR.24H PO SCH (09:37)
[2018-02-18] MEDS: APIXABAN 2.5 MG TABLET PO SCH (09:38)
[2018-02-18] MEDS: ACETAMINOPHEN 325 MG TABLET PO SCH (09:38)
[2018-02-18] MEDS: FERROUS SULFATE 325 MG TABLET PO SCH (09:38)
[2018-02-18] MEDS: CHLORPHENIRAMINE MALEATE 4 MG TABLET PO SCH (09:38)
[2018-02-18] MEDS: CALCIUM CARBONATE 250 MG/VITAMIN D3 125 UNIT TABLET PO SCH (09:38)
== END 2018-02-18 09:52 | disposition home health service (06) | DRG 682 ==
LOC: ER 15:21 → OBSVTOIN 17:37 → EH 17:37 → 4S 20:14 → 2S 02-14 12:47 → 3W 02-14 22:22
PROVIDERS: ADMIT Internal Medicine; ATTEND Internal Medicine
PROC: 02HV33Z Insertion of Infusion Device into Superior Vena Cava, Percutaneous Approach (ICD-10-PCS; principal; 2018-02-16)
DX: N17.9 Acute kidney failure, unspecified (principal); G04.90 Encephalitis and encephalomyelitis, unspecified; N30.00 Acute cystitis without hematuria; I50.42 Chronic combined systolic (congestive) and diastolic (congestive) heart failure; E87.2 Acidosis; F41.8 Other specified anxiety disorders; I11.0 Hypertensive heart disease with heart failure; G30.1 Alzheimer's disease with late onset; F02.80 Dementia in other diseases classified elsewhere, unspecified severity, without behavioral disturbance, psychotic disturbance, mood disturbance, and anxiety; I27.20 Pulmonary hypertension, unspecified; I48.91 Unspecified atrial fibrillation; I25.10 Atherosclerotic heart disease of native coronary artery without angina pectoris; E78.00 Pure hypercholesterolemia, unspecified; M19.90 Unspecified osteoarthritis, unspecified site; D64.9 Anemia, unspecified; E86.0 Dehydration; I25.2 Old myocardial infarction; Z86.711 Personal history of pulmonary embolism; Z79.899 Other long term (current) drug therapy; Z95.5 Presence of coronary angioplasty implant and graft; Z90.710 Acquired absence of both cervix and uterus; Z95.0 Presence of cardiac pacemaker; Z87.891 Personal history of nicotine dependence; Z91.018 Allergy to other foods; Z82.49 Family history of ischemic heart disease and other diseases of the circulatory system; Z82.61 Family history of arthritis; Z82.3 Family history of stroke; Z83.3 Family history of diabetes mellitus; Z80.9 Family history of malignant neoplasm, unspecified
CPT/HCPCS: 36415; 36600; 51701; 62270; 70450; 71045; 80053; 81001; 82550; 82553; 82803; 83605; 84484; 85025; 85610; 85730; 87040; 93005; 93010; 96365; 99285; C1751; G0378; J0133; J0696; J3370; J3490; J7030; J7060

== ENCOUNTER 2018-03-15 10:03 | Emergency (ER) | payer MEDICARE, OTHER ==
--- NOTE | 2018-03-15 10:23 | ER Document Report ---
ED Fall - General Chief Complaint: Fall Injury Stated Complaint: FALL HIP PAIN Time Seen by Provider: 03/15/18 10:07 Notes: 82-year-old female with a history of left femur fracture/patellar fracture fell last night. The patient tried to walk without her walker. Patient is a long history of dementia she fell onto her left side she did hit her head. Family has noticed bruising to the left side of her head. She is on Eliquis. Also complains of severe left hip pain. It is worse with movement she rates it as severe. The patient denies any other complaints of chest pain or shortness of breath. States she simply lost her balance last night without her walker. Denies any fever chills cough or sore throat. TRAVEL OUTSIDE OF THE [place] IN LAST 30 DAYS: No - Related data Allergies/Adverse Reactions: strawberry [Herrick] Allergy (Intermediate, Verified 01/26/18 23:50) RASH Past Medical History - Social History Smoking Status: Unknown if Ever Smoked Family History: Arthritis, CAD, CVA, DM, Hyperlipidemia, Hypertension, Malignancy - Past Medical History Cardiac Medical History: Reports: Hx Atrial Fibrillation, Hx Congestive Heart Failure, Hx Coronary Artery Disease, Hx Heart Attack, Hx Hypercholesterolemia, Hx Hypertension, Hx Pulmonary Embolism Denies: Hx Peripheral Vascular Disease, Hx Heart Murmur Pulmonary Medical History: Denies: Hx Asthma, Hx Bronchitis, Hx COPD, Hx Pneumonia, Hx Tuberculosis Neurological Medical History: Denies: Hx Cerebrovascular Accident, Hx Seizures Renal/ Medical History: Denies: Hx End Stage Renal Disease, Hx Peritoneal Dialysis GI Medical History: Denies: Hx Hepatitis, Hx Hiatal Hernia, Hx Ulcer Musculoskeltal Medical History: Reports Hx Arthritis, Denies Hx Fibromyalgia, Reports Hx Musculoskeletal Deformity, Reports Hx Musculoskeletal Trauma Psychiatric Medical History: Reports: Hx Dementia Denies: Hx Depression Traumatic Medical History: Reports: Hx Fractures - left arm, right hip left tib fib Infectious Medical History: Denies: Hx Hepatitis Past Surgical History: Reports: Hx Cardiac Catheterization - stents, Hx Cardiac Surgery - defibillator/pacemaker, Hx Coronary Stent, Hx Hysterectomy, Hx Orthopedic Surgery - right hip left tib fib and left arm, Hx Pacemaker - 2008. Denies: Hx Appendectomy, Hx Section, Hx Cholecystectomy, Hx Coronary Artery Bypass Graft, Hx Gastric Bypass Surgery, Hx Herniorrhaphy, Hx Mastectomy , Hx Open Heart Surgery, Hx Tonsillectomy, Hx Tubal Ligation - Immunizations Hx Diphtheria, Pertussis, Tetanus Vaccination: No Hx Pneumococcal Vaccination: 05/15/11 Review of Systems - Review of Systems Constitutional: denies: Chills, Fever Cardiovascular: denies: Chest pain Respiratory: denies: Short of breath Musculoskeletal: Joint pain, Deformity Neurological/Psychological: Other - Head injury due to fall -: Yes All other systems reviewed and negative Physical Exam - Vital signs Vitals: Temp Pulse Resp BP Pulse Ox 97.4 F 51 L 16 112/43 L 96 03/15/18 10:07 03/15/18 10:07 03/15/18 10:07 03/15/18 10:07 03/15/18 10:07 - Notes Notes: GENERAL_APPEARANCE: well_nourished, alert, cooperative, patient appears uncomfortable VITALS: reviewed, see vital signs table. HEAD: Ecchymosis noted on the left eyebrow and forehead EYES: PERRL, EOMI, conjunctiva_clear. NOSE: no_nasal_discharge. MOUTH: (-)decreased moisture. THROAT: no_throat inflammation, no_airway_obstruction. no_lymphadenopathy NECK: supple, no_neck_tenderness, (-)thyromegaly. BACK: no_back_tenderness. CHEST_WALL: no_chest_tenderness. LUNGS: no_wheezing, no_rales, no_rhonchi, (-)accessory muscle use, good air exchange bilateral. HEART: normal_rate, normal_rhythm, normal_S1, normal_S2, (-)S3, (-)S4, no_ murmur, no_rub. ABDOMEN: normal_BS, soft, no_abd_tenderness, (-)guarding, (-)rebound, no_ organomegaly, no_abd_masses. EXTREMITIES: There is rotation and shortening of the left leg toes pointing inward. There are strong dorsalis pedis posterior tibial pulses. SKIN: warm, dry, good_color, no_rash. MENTAL_STATUS: speech_clear, oriented_to person and place but not timebaseline according to family, normal_affect, responds_appropriately to questions. NEURO: Neg Motor or Sensory Deficits on exam, CN 2-12 intact, DTR 2+ symmetric x 4, No cerbellar signs Course - Re-evaluation Re-evalutation: 03/15/18 10:22 Elderly female presents after a fall last night. Patient does have some rotation shortening of the hip however she has had prior surgery on the femur. Will assess for any kind of fractures. She also did hit her head and has ecchymosis on the left forehead. Will get a CT scan to assess for intracranial hemorrhage since the patient is on anticoagulants. 03/15/18 12:20 Hip X-Ray 03/15/18 00:00 IMPRESSION: At the bottom edge of the field of view, a left distal femoral diaphysis fracture is present Severe osteoporosis. No plain film evidence of acute pelvic or proximal femur fracture bilaterally Cervical Spine CT 03/15/18 10:17 IMPRESSION: Probably chronic compression deformities at the C7 and T3 vertebral bodies. Head CT 03/15/18 10:17 IMPRESSION: CHRONIC CHANGES OF ATROPHY AND MICROVASCULAR ISCHEMIA. NO ACUTE PROCESS. EVIDENCE OF ACUTE STROKE: NO. Knee X-Ray 03/15/18 10:33 IMPRESSION: No acute fracture. Internal fixation of previous supracondylar fracture. The fracture that was seen on the hip x-ray was an old fracture just above the knee of the distal femur. As nothing acute on a dedicated knee x-ray on the left. Rotation we saw on exam is likely due to patient being rotated. The head scans were normal there is no intracranial hemorrhages. No neck fractures. The patient will be discharged back to the home. Patient has chronic compression deformities in the spine but due to her significant osteoporosis this is expected and likely chronic. - Vital Signs Vital signs: Temp Pulse Resp BP Pulse Ox 97.4 F 51 L 16 112/43 L 96 03/15/18 10:07 03/15/18 10:07 03/15/18 10:07 03/15/18 10:07 03/15/18 10:07 Discharge - Discharge Clinical Impression: Fall Qualifiers: Encounter type: initial encounter Qualified Code(s): W19.XXXA - Unspecified fall, initial encounter Head injury Qualifiers: Encounter type: initial encounter Qualified Code(s): S09.90XA - Unspecified injury of head, initial encounter Contusion of hip, left Qualifiers: Encounter type: initial encounter Qualified Code(s): S70.02XA - Contusion of left hip, initial encounter Condition: Good Disposition: HOME, SELF-CARE Instructions: Head Injury Precautions ([facility]) Additional Instructions: Please follow-up with your orthopedist for further care
--- NOTE | 2018-03-15 11:25 | RADIOLOGY REPORT (SQ) ---
EXAM DESCRIPTION: HIP LEFT AP/LATERAL COMPLETED DATE/TIME: 03/15/2018 10:44 am REASON FOR STUDY: bed 8 hip pain +shortening s/p fall COMPARISON: Left knee films same date Left hip films 12/09/2017, 11/17/2016 NUMBER OF VIEWS: Two views. TECHNIQUE: AP pelvis and additional frog-leg view of the left hip. LIMITATIONS: None. FINDINGS: MINERALIZATION: Extremely osteoporotic. LEFT HIP: No fracture or dislocation. No worrisome bone lesions. An intramedullary nail is present throughout the left femur. Along the distal femoral diaphysis at the bottom edge of the field of vie w, nondisplaced comminuted distal left femur fracture is present RIGHT HIP: No fracture or dislocation. No worrisome bone lesions. Right hip lag screws grid for int ramedullary nail. No lucency around the hardware PUBIS AND ISCHIUM: No fracture. PELVIS: No fracture. SACRUM: No fracture or dislocation. No worrisome bone lesions. LOWER LUMBAR SPINE: Advanced degenerative disc changes lower lumbar spine SOFT TISSUES: No findings. OTHER: No other significant finding. IMPRESSION: At the bottom edge of the field of view, a left distal femoral diaphysis fracture is pr esent Severe osteoporosis. No plain film evidence of acute pelvic or proximal femur fracture bilaterally TECHNICAL DOCUMENTATION: JOB ID: [id number] [employer]- All Rights Reserved Reading location - IP/workstation name: [email or web address]
--- NOTE | 2018-03-15 11:46 | RADIOLOGY REPORT (SQ) ---
EXAM DESCRIPTION: CT HEAD WITHOUT COMPLETED DATE/TIME: 03/15/2018 11:03 am REASON FOR STUDY: fall COMPARISON: 02/13/2018 TECHNIQUE: Axial images acquired through the brain without intravenous contrast. Images reviewed wi th bone, brain and subdural windows. Additional sagittal and coronal reconstructions were generated. Images stored on PACS. All CT scanners at this facility use dose modulation, iterative reconstruction, and/or weight based d osing when appropriate to reduce radiation dose to as low as reasonably achievable (ALARA). [facility]: Dose Right [facility]: CareDose [facility]: Dose Right [facility]: Teradose 4D [facility]: Smart TrewCap RADIATION DOSE: CT Rad equipment meets quality standard of care and radiation dose reduction techniq ues were employed. CTDIvol: 53.2 mGy. DLP: 1017 mGy-cm.mGy. LIMITATIONS: None. FINDINGS: VENTRICLES: Prominent. CEREBRUM: No masses. No hemorrhage. No midline shift. Areas of low density in the white matter mos t likely due to chronic micro-vascular ischemic change. No evidence for acute infarction. CEREBELLUM: No masses. No hemorrhage. No alteration of density. No evidence for acute infarction. EXTRAAXIAL SPACES: Age-related involutional change. No fluid collections. No masses. ORBITS AND GLOBE: No intra- or extraconal masses. Normal contour of globe without masses. CALVARIUM: No fracture. PARANASAL SINUSES: No fluid or mucosal thickening. SOFT TISSUES: No mass or hematoma. OTHER: No other significant finding. IMPRESSION: CHRONIC CHANGES OF ATROPHY AND MICROVASCULAR ISCHEMIA. NO ACUTE PROCESS. EVIDENCE OF ACUTE STROKE: NO. TECHNICAL DOCUMENTATION: JOB ID: [id number] Quality ID # [id number]: Final reports with documentation of one or more dose reduction techniques (e.g., Au tomated exposure control, adjustment of the mA and/or kV according to patient size, use of iterative reconstruction technique) 2010 [employer]- All Rights Reserved Reading location - IP/workstation name: [email or web address]
--- NOTE | 2018-03-15 11:46 | RADIOLOGY REPORT (SQ) ---
EXAM DESCRIPTION: CT CERVICAL SPINE WITHOUT COMPLETED DATE/TIME: 03/15/2018 11:03 am REASON FOR STUDY: fall COMPARISON: CT brain 03/15/2018 CT chest 07/03/2016 TECHNIQUE: Axial images acquired through the cervical spine without intravenous contrast. Images re viewed with lung, soft tissue and bone windows. Reconstructed coronal and sagittal MPR images review ed. Images stored on PACS. All CT scanners at this facility use dose modulation, iterative reconstruction, and/or weight based d osing when appropriate to reduce radiation dose to as low as reasonably achievable (ALARA). [facility]: Dose Right [facility]: CareDose [facility]: Dose Right [facility]: Teradose 4D [facility]: G2 Crowd RADIATION DOSE: CT Rad equipment meets quality standard of care and radiation dose reduction techniq ues were employed. CTDIvol: 11.2 mGy. DLP: 201 mGy-cm. mGy. LIMITATIONS: Nonstandard radiographic positioning FINDINGS: ALIGNMENT: Anatomic. MINERALIZATION: Osteoporotic VERTEBRAL BODIES: 50% compression deformity of the C7 vertebral body is present with a band of sclero sis along the upper endplate. No soft tissue swelling around its periphery. This is likely a chroni c compression deformity. About 50% loss of T3 is present with bony sclerosis along the upper endplate. This is also likely a chronic compression deformity. DISCS: No significant disc disease. FACETS, LATERAL MASSES, POSTERIOR ELEMENTS: No fractures. No dislocation. No acute findings. HARDWARE: None in the spine. VISUALIZED RIBS: No fractures. LUNG APICES AND SOFT TISSUES: Heavily calcified carotid bifurcations bilaterally OTHER: No other significant finding. IMPRESSION: Probably chronic compression deformities at the C7 and T3 vertebral bodies. TECHNICAL DOCUMENTATION: JOB ID: [id number] Quality ID # [id number]: Final reports with documentation of one or more dose reduction techniques (e.g., Au tomated exposure control, adjustment of the mA and/or kV according to patient size, use of iterative reconstruction technique) 2010 [employer] All Rights Reserved Reading location - IP/workstation name: [email or web address]
--- NOTE | 2018-03-15 12:00 | RADIOLOGY REPORT (SQ) ---
EXAM DESCRIPTION: KNEE LEFT 2 VIEWS COMPLETED DATE/TIME: 03/15/2018 11:04 am REASON FOR STUDY: fall COMPARISON: 12/09/2017 NUMBER OF VIEWS: Two views. TECHNIQUE: AP and lateral radiographic images acquired of the left knee. LIMITATIONS: None. FINDINGS: MINERALIZATION: Severe osteopenia BONES: Internal fixation of previous supracondylar fracture. No acute fracture. JOINT: No effusion. SOFT TISSUES: No soft tissue swelling. No radio-opaque foreign body. OTHER: No other significant finding. IMPRESSION: No acute fracture. Internal fixation of previous supracondylar fracture. TECHNICAL DOCUMENTATION: JOB ID: [id number] [employer]- All Rights Reserved Reading location - IP/workstation name: [email or web address]
[2018-03-15 13:23] VITALS: BP 112/53
== END 2018-03-15 13:24 | disposition home or self-care (01) ==
LOC: ER 10:03
DX: S70.02XA Contusion of left hip, initial encounter (principal); S00.12XA Contusion of left eyelid and periocular area, initial encounter; S00.83XA Contusion of other part of head, initial encounter; M25.552 Pain in left hip; W19.XXXA Unspecified fall, initial encounter; I25.10 Atherosclerotic heart disease of native coronary artery without angina pectoris; I67.82 Cerebral ischemia; I10 Essential (primary) hypertension; I48.91 Unspecified atrial fibrillation; Z79.01 Long term (current) use of anticoagulants; Z95.5 Presence of coronary angioplasty implant and graft; Z95.810 Presence of automatic (implantable) cardiac defibrillator; Z87.81 Personal history of (healed) traumatic fracture; Z98.890 Other specified postprocedural states; M81.0 Age-related osteoporosis without current pathological fracture
CPT/HCPCS: 70450; 72125; 99284

== ENCOUNTER 2018-03-21 14:55 | Emergency (ER) | payer MEDICARE, OTHER ==
[2018-03-21] MEDS ORDERED: NORMAL SALINE 1000 ML 500 ML IV ONE (15:53)
--- NOTE | 2018-03-21 15:54 | ER Document Report ---
ED General - General Chief Complaint: Low Blood Pressure Stated Complaint: BLOOD PRESSURE ISSUES Time Seen by Provider: 03/21/18 15:27 Notes: Patient is an 82-year-old female presents emergency department from EMS from home with a chief complaint of hypotension. Her family at the bedside states that she has been having some weakness since she was discharged from the hospital back in February. Patient had a recent fall with femur fracture that was repaired is been in the hospital notable times since then. He states that over the past couple days she has had some intermittent diarrhea and subjective fevers. States that the one time that they did check it it was 101.9 which is yesterday. Otherwise she has been tolerating p.o. without any difficulty without nausea or vomiting. They deny any complaint of abdominal pain. States her home health nurse came to check on her today and they felt that her blood pressure was low. EMS came felt that her blood pressure was less than 80 due to lack of radial pulses so she received a 250 mL bolus and became normotensive shortly after. She is alert and oriented to location and her name. She denies any current complaints. Patient is on a blood thinner. Family admits to dark stools at home but states that she is also on iron replacement. Patient was recently seen here for follow last week with ecchymosis around the left eye. DNR PCP; [place] TRAVEL OUTSIDE OF THE [place] IN LAST 30 DAYS: No - Related Data Allergies/Adverse Reactions: strawberry [[place]] Allergy (Intermediate, Verified 01/26/18 23:50) RASH Past Medical History - Social History Smoking Status: Never Smoker Chew tobacco use (# tins/day): No Frequency of alcohol use: None Drug Abuse: None Family History: Arthritis, CAD, CVA, DM, Hyperlipidemia, Hypertension, Malignancy Patient has suicidal ideation: No Patient has homicidal ideation: No - Past Medical History Cardiac Medical History: Reports: Hx Atrial Fibrillation, Hx Congestive Heart Failure, Hx Coronary Artery Disease, Hx Heart Attack, Hx Hypercholesterolemia, Hx Hypertension, Hx Pulmonary Embolism Denies: Hx Peripheral Vascular Disease, Hx Heart Murmur Pulmonary Medical History: Denies: Hx Asthma, Hx Bronchitis, Hx COPD, Hx Pneumonia, Hx Tuberculosis Neurological Medical History: Denies: Hx Cerebrovascular Accident, Hx Seizures Renal/ Medical History: Denies: Hx End Stage Renal Disease, Hx Peritoneal Dialysis GI Medical History: Denies: Hx Hepatitis, Hx Hiatal Hernia, Hx Ulcer Musculoskeltal Medical History: Reports Hx Arthritis, Denies Hx Fibromyalgia, Reports Hx Musculoskeletal Deformity, Reports Hx Musculoskeletal Trauma Psychiatric Medical History: Reports: Hx Dementia Denies: Hx Depression Traumatic Medical History: Reports: Hx Fractures - left arm, right hip left tib fib Infectious Medical History: Denies: Hx Hepatitis Past Surgical History: Reports: Hx Cardiac Catheterization - stents, Hx Cardiac Surgery - defibillator/pacemaker, Hx Coronary Stent, Hx Hysterectomy, Hx Orthopedic Surgery - right hip left tib fib and left arm, Hx Pacemaker - 2009. Denies: Hx Appendectomy, Hx Section, Hx Cholecystectomy, Hx Coronary Artery Bypass Graft, Hx Gastric Bypass Surgery, Hx Herniorrhaphy, Hx Mastectomy , Hx Open Heart Surgery, Hx Tonsillectomy, Hx Tubal Ligation - Immunizations Hx Diphtheria, Pertussis, Tetanus Vaccination: No Hx Pneumococcal Vaccination: 05/15/11 Review of Systems - Review of Systems Constitutional: See HPI Cardiovascular: No symptoms reported Respiratory: No symptoms reported Gastrointestinal: See HPI Genitourinary: No symptoms reported Musculoskeletal: No symptoms reported Neurological/Psychological: See HPI -: Yes All other systems reviewed and negative Physical Exam - Vital signs Vitals: Resp Pulse Ox 17 94 03/21/18 15:06 03/21/18 15:06 - Notes Notes: PHYSICAL EXAM GENERAL: Alert, interacts well. HEAD: Normocephalic, atraumatic. EYES: Pupils equal, round, and reactive to light. Extraocular movements intact. ENT: Oral mucosa moist, tongue midline. NECK: Full range of motion. Supple. Trachea midline. LUNGS: Clear to auscultation bilaterally, no wheezes, rales, or rhonchi. No respiratory distress. HEART: Regular rate and rhythm. No murmurs, gallops, or rubs. ABDOMEN: Soft, nondistended, mild abdominal tenderss. No guarding, rebound, or rigidity.. Bowel sounds present in all 4 quadrants. EXTREMITIES: Moves all 4 extremities spontaneously. No edema, radial and dorsalis pedis pulses 2/4 bilaterally. No cyanosis. NEUROLOGICAL: Alert and oriented x2. Face symmetric. Tongue protrudes midline. Extraocular motions intact. Pupils are 2 mm and equally reactive. Normal speech, Patient nonambulatory. 5 out of 5 strength in both the distal and proximal upper and lower extremities bilaterally. Sensation is grossly intact throughout. Pronator drift normal. PSYCH: Normal affect, normal mood. SKIN: Warm, dry, normal turgor. left eye bruising without edema Course - Re-evaluation Re-evalutation: Patient is an 82-year-old female who presents emergency department the chief complaint of hypotension. Patient's been normotensive since arrival to the emergency department. Was given an additional half a liter bolus. Her pressures remained normotensive. She is tolerating p.o. Family at the bedside states that she has been alert and answering questions. No evidence of leukocytosis. Mild drop in hemoglobin with a hemoglobin today 9.9 and hematocrit 30. No evidence of bleeding at this time. Stool guaiac was negative. No evidence of diarrhea. Given the patient was recently hospitalized C. difficile was ordered but patient has not been able to give a sample. Patient has remained afebrile. Chemistry without evidence of acute hepatic or renal insufficiency. EKG without evidence of ST changes. Urinalysis without any evidence of UTI. Given patient's physical exam revealed mild abdominal tenderness, CT the abdomen and pelvis was ordered without any evidence of acute intra-abdominal pathology. Presentation is not consistent with mesenteric ischemia given patient's pain is not severe, no evidence of lactic acidosis, no evidence of lower GI bleeding. Reviewed case with primary care Dr. rBaga who agrees the patient can be discharged home. To have an established follow-up appointment on . Reviewed plan with family and they are preferring to take her home at this time. Patient's vital signs remained stable and stable for discharge home. - Vital Signs Vital signs: Temp Pulse Resp BP Pulse Ox 98.6 F 15 152/61 H 97 03/21/18 15:40 03/21/18 18:00 03/21/18 18:01 03/21/18 18:00 - Laboratory Result Diagrams: 03/21/18 15:09 03/21/18 15:09 Laboratory results interpreted by me: 03/21/18 03/21/18 03/21/18 15:09 15:09 15:09 RBC 3.20 L Hgb 9.9 L Hct 30.2 L Plt Count 89 L Monocytes % (Manual) 14 H PT 17.5 H Sodium 136.3 L BUN 26 H Est GFR (Non-Af Amer) 56 L Calcium 8.1 L Direct Bilirubin 0.5 H NT-Pro-B Natriuret Pep Total Protein 5.1 L Albumin 2.4 L 03/21/18 15:09 RBC Hgb Hct Plt Count Monocytes % (Manual) PT Sodium BUN Est GFR (Non-Af Amer) Calcium Direct Bilirubin NT-Pro-B Natriuret Pep 2310 H Total Protein Albumin - Diagnostic Test Radiology reviewed: Image reviewed, Reports reviewed - EKG Interpretation by Me Rate: Normal Rhythm: NSR - Ventricularly paced When compared to previous EKG there are: No significant change Discharge - Discharge Clinical Impression: Hypotension Condition: Good Disposition: HOME, SELF-CARE Instructions: Hypotension ([facility]) Referrals: JOÃO BRAGA MD [Primary Care Provider] - Follow up in 3-5 days
[2018-03-21 16:10] LABS: VENOUS BLOOD BASE EXCESS -0.3 mmol/L; VENOUS BLOOD HCO3 24.3 mmol/L (20-32); VENOUS BLOOD PCO2 39.5 mmHg (35-63); VENOUS BLOOD PH 7.41 (7.30-7.42)
[2018-03-21 16:13] LABS: HEMATOCRIT 30.2 % (36.0-47.0); HEMOGLOBIN 9.9 g/dL (12.0-15.5); MEAN CORPUSCULAR HGB CONC 32.9 g/dL (32.0-36.0); MEAN CORPUSCULAR VOLUME 94 fl (80-97); RED CELL DISTRIBUTION WIDTH 13.4 % (11.5-14.0); WHITE BLOOD COUNT 6.8 10^3/uL (4.0-10.5)
[2018-03-21 16:14] LABS: PLATELET COUNT 89 10^3/uL (150-450)
[2018-03-21 16:17] LABS: ALANINE AMINOTRANSFERASE 21 U/L (9-52); ALBUMIN 2.4 g/dL (3.5-5.0); ALKALINE PHOSPHATASE 68 U/L (38-126); ANION GAP 10 (5-19); ASPARTATE AMINO TRANSFERASE 27 U/L (14-36); BILIRUBIN,DIRECT 0.5 mg/dL (0.0-0.4); BILIRUBIN,TOTAL 0.6 mg/dL (0.2-1.3); BLOOD UREA NITROGEN 26 mg/dL (7-20); CALCIUM 8.1 mg/dL (8.4-10.2); CARBON DIOXIDE 26 mmol/L (22-30); CHLORIDE 100 mmol/L (98-107); GLUCOSE 90 mg/dL (75-110); INTERNATIONAL RATION (INR) 1.37; POTASSIUM 3.8 mmol/L (3.6-5.0); PROTHROMBIN TIME 17.5 SEC (11.4-15.4); SODIUM 136.3 mmol/L (137-145); TOTAL PROTEIN 5.1 g/dL (6.3-8.2)
[2018-03-21 16:29] LABS: ABSOLUTE LYMPHOCYTES# (MANUAL) 2.2 10^3/uL (0.5-4.7); ABSOLUTE NEUTROPHILS# (MANUAL) 3.6 10^3/uL (1.7-8.2); BASOPHILS % (MANUAL) 0 % (0-2); EOSINOPHILS % (MANUAL) 1 % (0-6); LYMPHOCYTES % (MANUAL) 32 % (13-45); MONOCYTES % (MANUAL) 14 % (3-13); SEGMENTED NEUTROPHILS % (MAN) 53 % (42-78); TOTAL CELLS COUNTED 100
--- NOTE | 2018-03-21 16:29 | RADIOLOGY REPORT (SQ) ---
EXAM DESCRIPTION: CHEST SINGLE VIEW COMPLETED DATE/TIME: 03/21/2018 4:17 pm REASON FOR STUDY: AMS COMPARISON: 02/16/2018 EXAM PARAMETERS: NUMBER OF VIEWS: One view. TECHNIQUE: Single frontal radiographic view of the chest acquired. RADIATION DOSE: NA LIMITATIONS: Positioning. Overlying support apparatus. FINDINGS: LUNGS AND PLEURA: No opacities, masses or pneumothorax. No pleural effusion. MEDIASTINUM AND HILAR STRUCTURES: No masses. Contour normal. HEART AND VASCULAR STRUCTURES: Stable heart size. BONES: No acute findings. HARDWARE: Stable position of pacemaker or defibrillator. OTHER: Interval removal of right-sided central line. IMPRESSION: NO ACUTE RADIOGRAPHIC FINDING IN THE CHEST. TECHNICAL DOCUMENTATION: JOB ID: [id number] [employer]- All Rights Reserved Reading location - IP/workstation name: [email or web address]
[2018-03-21 16:31] LABS: PLATELET COMMENT DECREASED; TOXIC GRANULATION SLIGHT
[2018-03-21 17:38] LABS: APPEARANCE,URINE SLIGHTLY-CLOUDY; BILIRUBIN,URINE NEGATIVE (NEGATIVE); COLOR,URINE YELLOW; GLUCOSE, URINE NEGATIVE (NEGATIVE); KETONES,URINE NEGATIVE (NEGATIVE); LEUKOCYTE ESTERASE,URINE NEGATIVE (NEGATIVE); NITRITE,URINE NEGATIVE (NEGATIVE); PROTEIN,URINE NEGATIVE (NEGATIVE); URINE SPECIFIC GRAVITY 1.006; UROBILINOGEN,URINE NEGATIVE mg/dL (<2.0)
[2018-03-21 17:43] LABS: TROPONIN I 0.023 ng/mL
--- NOTE | 2018-03-21 18:19 | EKG REPORT ---
SEVERITY:- ABNORMAL ECG - ATRIAL-VENTRICULAR DUAL-PACED RHYTHM : Confirmed by: Scooter Webster MD 21-Mar-2018 18:18:10
--- NOTE | 2018-03-21 18:51 | RADIOLOGY REPORT (SQ) ---
EXAM DESCRIPTION: CT ABD/PELVIS WITH IV ONLY COMPLETED DATE/TIME: 03/21/2018 6:32 pm REASON FOR STUDY: abdominal pain, fever COMPARISON: None. TECHNIQUE: CT scan of the abdomen and pelvis performed using helical scanning technique with dynamic intravenous contrast injection. No oral contrast. Images reviewed with lung, soft tissue, and bone windows. Reconstructed coronal and sagittal MPR images reviewed. Delayed images for evaluation of the urinary system also acquired. All images stored on PACS. All CT scanners at this facility use dose modulation, iterative reconstruction, and/or weight based d osing when appropriate to reduce radiation dose to as low as reasonably achievable (ALARA). [facility]: Dose Right [facility]: CareDose [facility]: Dose Right [facility]: Teradose 4D [facility]: Muxlim CONTRAST TYPE AND DOSE: contrast/concentration: Isovue 370.00 mg/ml; Total Contrast Delivered: 53.0 ml; Total Saline Delivered: 65.0 ml RENAL FUNCTION: BUN 26 creatinine 1 RADIATION DOSE: CT Rad equipment meets quality standard of care and radiation dose reduction techniq ues were employed. CTDIvol: 4.8 - 5.4 mGy. DLP: 470 mGy-cm.. LIMITATIONS: None. FINDINGS: LOWER CHEST: No significant findings. No nodules or infiltrates. LIVER: Normal size. No masses. No dilated ducts. SPLEEN: Normal size. No focal lesions. PANCREAS: No masses. No significant calcifications. No adjacent inflammation or peripancreatic fluid collections. Pancreatic duct not dilated. GALLBLADDER: No identified stones by CT criteria. No inflammatory changes to suggest cholecystitis. ADRENAL GLANDS: No significant masses or asymmetry. RIGHT KIDNEY AND URETER: No solid masses. There are some tiny intrarenal calculi. No hydronephros is or hydroureter. LEFT KIDNEY AND URETER: No solid masses. There are some renal vascular calcifications. No hydrone phrosis or hydroureter. AORTA AND VESSELS: Atherosclerosis. No aneurysm. RETROPERITONEUM: No retroperitoneal adenopathy, hemorrhage or masses. BOWEL AND PERITONEAL CAVITY: No masses or inflammatory changes. No free fluid or peritoneal masses. APPENDIX: Not identified. There appears to be a surgical clip adjacent to the tip of the cecum sugge sting appendectomy. PELVIS: No mass. No free fluid. Normal bladder. ABDOMINAL WALL: No masses. No hernias. BONES: Internal fixation of prior femoral fractures bilaterally. OTHER: No other significant finding. IMPRESSION: Tiny intrarenal calculi on the right. No acute findings in the abdomen or pelvis TECHNICAL DOCUMENTATION: JOB ID: [id number] Quality ID # [id number]: Final reports with documentation of one or more dose reduction techniques (e.g., Au tomated exposure control, adjustment of the mA and/or kV according to patient size, use of iterative reconstruction technique) 2010 [employer]- All Rights Reserved Reading location - IP/workstation name: [email or web address]
[2018-03-21 19:54] VITALS: BP 150/59
== END 2018-03-21 19:54 | disposition home or self-care (01) ==
LOC: ER 14:55
DX: I95.9 Hypotension, unspecified (principal); R53.1 Weakness; R19.7 Diarrhea, unspecified; R50.9 Fever, unspecified; R19.5 Other fecal abnormalities; I25.10 Atherosclerotic heart disease of native coronary artery without angina pectoris; I10 Essential (primary) hypertension; I25.2 Old myocardial infarction; I48.91 Unspecified atrial fibrillation; Z79.01 Long term (current) use of anticoagulants; Z79.899 Other long term (current) drug therapy; Z98.890 Other specified postprocedural states; Z86.711 Personal history of pulmonary embolism; Z95.5 Presence of coronary angioplasty implant and graft; Z95.810 Presence of automatic (implantable) cardiac defibrillator; Z91.018 Allergy to other foods
CPT/HCPCS: 93005; 99285; 96360; 36415; 87040; 87086; 82962; 85025; 85610; 82272; 87077; 80053; 81001; 84484; 87186; 82803; 83605; 83880; 71045; 74177; 93010; J7030

== ENCOUNTER 2018-03-24 16:07 | Observation (INO) | payer MEDICARE, OTHER ==
[2018-03-24] MEDS ORDERED: NORMAL SALINE 500 ML IV ONE (16:44)
[2018-03-24 17:32] LABS: ABSOLUTE BASOPHILS # (AUTO) 0.1 10^3/uL (0.0-0.2); ABSOLUTE EOSINOPHILS # (AUTO) 0.1 10^3/uL (0.0-0.6); ABSOLUTE LYMPHOCYTES (AUTO) 0.7 10^3/uL (0.5-4.7); ABSOLUTE MONOCYTES (AUTO) 0.3 10^3/uL (0.1-1.4); BASOPHILS % (AUTO) 1.2 % (0-2); EOSINOPHILS % (AUTO) 1.5 % (0-6); HEMATOCRIT 34.5 % (36.0-47.0); HEMOGLOBIN 11.5 g/dL (12.0-15.5); LYMPHOCYTES % (AUTO) 14.3 % (13-45); MEAN CORPUSCULAR HEMOGLOBIN 31.5 pg (27.0-33.4); MEAN CORPUSCULAR HGB CONC 33.4 g/dL (32.0-36.0); MEAN CORPUSCULAR VOLUME 94 fl (80-97); MONOCYTES % (AUTO) 6.5 % (3-13); PLATELET COUNT 181 10^3/uL (150-450); RED BLOOD COUNT 3.66 10^6/uL (3.72-5.28); RED CELL DISTRIBUTION WIDTH 13.2 % (11.5-14.0); SEGMENTED NEUTROPHILS % (AUTO) 76.5 % (42-78); TOTAL CELLS COUNTED % (AUTO) 100 %; WHITE BLOOD COUNT 5.2 10^3/uL (4.0-10.5)
[2018-03-24 17:37] LABS: INTERNATIONAL RATION (INR) 1.18; PROTHROMBIN TIME 15.6 SEC (11.4-15.4)
[2018-03-24 17:49] LABS: ALANINE AMINOTRANSFERASE 16 U/L (9-52); ALBUMIN 2.7 g/dL (3.5-5.0); ALKALINE PHOSPHATASE 82 U/L (38-126); ANION GAP 14 (5-19); ASPARTATE AMINO TRANSFERASE 30 U/L (14-36); BILIRUBIN,DIRECT 0.6 mg/dL (0.0-0.4); BILIRUBIN,TOTAL 0.7 mg/dL (0.2-1.3); BLOOD UREA NITROGEN 16 mg/dL (7-20); CALCIUM 8.4 mg/dL (8.4-10.2); CARBON DIOXIDE 26 mmol/L (22-30); CHLORIDE 103 mmol/L (98-107); GLUCOSE 100 mg/dL (75-110); POTASSIUM 3.2 mmol/L (3.6-5.0); SODIUM 142.6 mmol/L (137-145); TOTAL PROTEIN 5.6 g/dL (6.3-8.2)
[2018-03-24 17:53] LABS: CREATINE KINASE < 20 U/L (30-135)
--- NOTE | 2018-03-24 17:59 | RADIOLOGY REPORT (SQ) ---
EXAM DESCRIPTION: CT HEAD WITHOUT COMPLETED DATE/TIME: 03/24/2018 5:40 pm REASON FOR STUDY: ams COMPARISON: 03/15/2018 TECHNIQUE: Axial images acquired through the brain without intravenous contrast. Images reviewed wi th bone, brain and subdural windows. Additional sagittal and coronal reconstructions were generated. Images stored on PACS. All CT scanners at this facility use dose modulation, iterative reconstruction, and/or weight based d osing when appropriate to reduce radiation dose to as low as reasonably achievable (ALARA). [facility]: Dose Right [facility]: CareDose [facility]: Dose Right [facility]: Teradose 4D [facility]: Smart CrowdTransfer RADIATION DOSE: CT Rad equipment meets quality standard of care and radiation dose reduction techniq ues were employed. CTDIvol: 53.2 mGy. DLP: 1017 mGy-cm.mGy. LIMITATIONS: None. FINDINGS: VENTRICLES: Prominent. CEREBRUM: No masses. No hemorrhage. No midline shift. Areas of low density in the white matter mos t likely due to chronic micro-vascular ischemic change. No evidence for acute infarction. CEREBELLUM: No masses. No hemorrhage. No alteration of density. No evidence for acute infarction. EXTRAAXIAL SPACES: Age-related involutional change. No fluid collections. No masses. ORBITS AND GLOBE: No intra- or extraconal masses. Normal contour of globe without masses. CALVARIUM: No fracture. PARANASAL SINUSES: There is opacification of the left sphenoid sinus unchanged from the previous stud y. SOFT TISSUES: No mass or hematoma. OTHER: No other significant finding. IMPRESSION: CHRONIC CHANGES OF ATROPHY AND MICROVASCULAR ISCHEMIA. NO ACUTE PROCESS. EVIDENCE OF ACUTE STROKE: NO. TECHNICAL DOCUMENTATION: JOB ID: [id number] Quality ID # [id number]: Final reports with documentation of one or more dose reduction techniques (e.g., Au tomated exposure control, adjustment of the mA and/or kV according to patient size, use of iterative reconstruction technique) 2010 [employer]- All Rights Reserved Reading location - IP/workstation name: [email or web address]
--- NOTE | 2018-03-24 17:59 | RADIOLOGY REPORT (SQ) ---
EXAM DESCRIPTION: CHEST SINGLE VIEW COMPLETED DATE/TIME: 03/24/2018 5:35 pm REASON FOR STUDY: weakness COMPARISON: 03/21/2018 EXAM PARAMETERS: NUMBER OF VIEWS: One view. TECHNIQUE: Single frontal radiographic view of the chest acquired. RADIATION DOSE: NA LIMITATIONS: None. FINDINGS: LUNGS AND PLEURA: No opacities, masses or pneumothorax. No pleural effusion. MEDIASTINUM AND HILAR STRUCTURES: No masses. Contour normal. HEART AND VASCULAR STRUCTURES: Heart normal in size. Normal vasculature. BONES: No acute findings. HARDWARE: Pacemaker/defibrillator. OTHER: No other significant finding. IMPRESSION: NO ACUTE RADIOGRAPHIC FINDING IN THE CHEST. TECHNICAL DOCUMENTATION: JOB ID: [id number] [employer]- All Rights Reserved Reading location - IP/workstation name: [email or web address]
[2018-03-24 18:03] LABS: CREATINE KINASE MB 0.3 ng/mL (<4.55); TROPONIN I 0.013 ng/mL
[2018-03-24 18:13] LABS: APPEARANCE,URINE TURBID; BILIRUBIN,URINE NEGATIVE (NEGATIVE); COLOR,URINE YELLOW; GLUCOSE, URINE NEGATIVE (NEGATIVE); KETONES,URINE NEGATIVE (NEGATIVE); LEUKOCYTE ESTERASE,URINE LARGE (NEGATIVE); NITRITE,URINE NEGATIVE (NEGATIVE); PROTEIN,URINE 100 mg/dL (NEGATIVE); URINE SPECIFIC GRAVITY 1.011
[2018-03-24] MEDS ORDERED: CEFTRIAXONE 1 GM/D5W RTU 1 GM/50 ML RTUPB IV ONE (18:45)
[2018-03-24] MEDS ORDERED: CEFTRIAXONE INJ 1000 MG VIAL IV ONE (19:15)
--- NOTE | 2018-03-24 19:28 | EKG REPORT ---
SEVERITY:- ABNORMAL ECG - ATRIAL-SENSED VENTRICULAR-PACED RHYTHM : Confirmed by: Scooter Webster MD 24-Mar-2018 19:27:51
--- NOTE | 2018-03-24 20:30 | ER Document Report ---
ED General - General Chief Complaint: Other Stated Complaint: WEAKNESS Time Seen by Provider: 03/24/18 16:20 TRAVEL OUTSIDE OF THE [place] IN LAST 30 DAYS: No - HPI Patient complains to provider of: Weakness Notes: Patient was at her PCPs office when she experienced diffuse weakness became diaphoretic from having be laid down the floor. PCP noticed that her pupils were pinpoint therefore is concerned that the patient may have a head bleed is that she is on Eliquis for underlying A. fib therefore referred the patient to the emergency room. Family at bedside also states the patient has an jerking motions concerned that her AICD had fired. Upon my evaluation patient does look to be sleeping however is arousable to voice and is able to answer questions appropriately for the most part. Patient is able to deny any pain. No changes recent medications. No fever documented. Patient did have stool in her brief that was dark. According to family members patient is on iron supplements and the dark stool is not abnormal for the patient. - Related Data Allergies/Adverse Reactions: strawberry [[place]] Allergy (Intermediate, Verified 01/26/18 23:50) RASH Past Medical History - Social History Smoking Status: Unknown if Ever Smoked Chew tobacco use (# tins/day): No Frequency of alcohol use: None Drug Abuse: None Family History: Arthritis, CAD, CVA, DM, Hyperlipidemia, Hypertension, Malignancy Patient has suicidal ideation: No Patient has homicidal ideation: No - Past Medical History Cardiac Medical History: Reports: Hx Atrial Fibrillation, Hx Congestive Heart Failure, Hx Coronary Artery Disease, Hx Heart Attack, Hx Hypercholesterolemia, Hx Hypertension, Hx Pulmonary Embolism Denies: Hx Peripheral Vascular Disease, Hx Heart Murmur Pulmonary Medical History: Denies: Hx Asthma, Hx Bronchitis, Hx COPD, Hx Pneumonia, Hx Tuberculosis Neurological Medical History: Denies: Hx Cerebrovascular Accident, Hx Seizures Renal/ Medical History: Denies: Hx End Stage Renal Disease, Hx Peritoneal Dialysis GI Medical History: Denies: Hx Hepatitis, Hx Hiatal Hernia, Hx Ulcer Musculoskeltal Medical History: Reports Hx Arthritis, Denies Hx Fibromyalgia, Reports Hx Musculoskeletal Deformity, Reports Hx Musculoskeletal Trauma Psychiatric Medical History: Reports: Hx Dementia Denies: Hx Depression Traumatic Medical History: Reports: Hx Fractures - left arm, right hip left tib fib Infectious Medical History: Denies: Hx Hepatitis Past Surgical History: Reports: Hx Cardiac Catheterization - stents, Hx Cardiac Surgery - defibillator/pacemaker, Hx Coronary Stent, Hx Hysterectomy, Hx Orthopedic Surgery - right hip left tib fib and left arm, left femur, Hx Pacemaker - 2009. Denies: Hx Appendectomy, Hx Section, Hx Cholecystectomy, Hx Coronary Artery Bypass Graft, Hx Gastric Bypass Surgery, Hx Herniorrhaphy, Hx Mastectomy, Hx Open Heart Surgery, Hx Tonsillectomy, Hx Tubal Ligation - Immunizations Hx Diphtheria, Pertussis, Tetanus Vaccination: No Hx Pneumococcal Vaccination: 05/15/11 Review of Systems - Review of Systems Constitutional: Weakness EENT: No symptoms reported Cardiovascular: No symptoms reported Respiratory: No symptoms reported Gastrointestinal: No symptoms reported Genitourinary: No symptoms reported Female Genitourinary: No symptoms reported Musculoskeletal: No symptoms reported Skin: No symptoms reported Hematologic/Lymphatic: No symptoms reported Neurological/Psychological: No symptoms reported Physical Exam - Vital signs Vitals: Resp Pulse Ox 17 94 03/24/18 16:18 03/24/18 16:18 Interpretation: Normal - General General appearance: Appears well, Alert - HEENT Head: Normocephalic, Atraumatic Eyes: Normal Pupils: PERRL - Respiratory Respiratory status: No respiratory distress Chest status: Nontender Breath sounds: Normal Chest palpation: Normal - Cardiovascular Rhythm: Regular Heart sounds: Normal auscultation Murmur: No - Abdominal Inspection: Normal Distension: No distension Bowel sounds: Normal Tenderness: Nontender Organomegaly: No organomegaly - Back Back: Normal, Nontender - Extremities General upper extremity: Normal inspection, Nontender, Normal color, Normal ROM , Normal temperature General lower extremity: Normal inspection, Nontender, Normal color, Normal ROM , Normal temperature, Normal weight bearing. No: [place]'s sign - Neurological Neuro grossly intact: Yes [place] Coma Scale Eye Opening: Spontaneous [place] Coma Scale Verbal: Oriented [place] Coma Scale Motor: Obeys Commands [place] Coma Scale Total: 15 Speech: Normal - Psychological Associated symptoms: Normal affect, Normal mood - Skin Skin Temperature: Warm Skin Moisture: Dry Skin Color: Normal Course - Re-evaluation Re-evalutation: 03/24/18 22:39 Laboratory studies do show a urinary tract infection. Head CT chest x-ray were negative for acute process. Patient case was discussed with PCP Dr. Amin agrees with admission at this time for further monitoring. We did interrogate the patient's pacemaker which did not show any signs of firing or discharge. - Vital Signs Vital signs: Temp Pulse Resp BP Pulse Ox 14 139/58 H 99 03/24/18 18:01 03/24/18 18:01 03/24/18 18:01 - Laboratory Result Diagrams: 03/24/18 17:15 03/24/18 17:15 Laboratory results interpreted by me: 03/24/18 03/24/18 03/24/18 17:15 17:15 17:15 RBC 3.66 L Hgb 11.5 L Hct 34.5 L PT 15.6 H Potassium 3.2 L Direct Bilirubin 0.6 H Creatine Kinase < 20 L Total Protein 5.6 L Albumin 2.7 L Urine Protein Urine Blood Urine Urobilinogen Ur Leukocyte Esterase Protein/Creatinin Ratio Urine Total Protein 03/24/18 03/24/18 17:55 17:55 RBC Hgb Hct PT Potassium Direct Bilirubin Creatine Kinase Total Protein Albumin Urine Protein 100 H Urine Blood LARGE H Urine Urobilinogen 4.0 H Ur Leukocyte Esterase LARGE H Protein/Creatinin Ratio 2.0 H Urine Total Protein 94.2 H Discharge - Discharge Clinical Impression: Weakness, Hypokalemia, Encephalopathy, unspecified UTI (urinary tract infection) Qualifiers: Urinary tract infection type: site unspecified Hematuria presence: without hematuria Qualified Code(s): N39.0 - Urinary tract infection, site not specified Condition: Good Disposition: ADMITTED OBSERVATION Admitting Provider: Efrenfl Unit Admitted: Telemetry
[2018-03-24] MEDS ORDERED: NORMAL SALINE 1000 ML 1,000 ML IV PRN (22:07)
[2018-03-24] MEDS ORDERED: (PENDING PHARMACY ID) (Memantine Hcl/Donepezil Hcl [Namzaric 28 Mg-10 Mg Capsule] 1 CAP) PO SCH (22:15)
[2018-03-24] MEDS ORDERED: SACUBITRIL/VALSARTAN 49 MG/51 MG TABLET PO ONE (22:30)
[2018-03-24] MEDS ORDERED: APIXABAN 2.5 MG TABLET PO ONE (22:30)
[2018-03-24] MEDS ORDERED: GABAPENTIN 300 MG CAPSULE PO ONE (22:30)
[2018-03-24] MEDS ORDERED: ATORVASTATIN CALCIUM 10 MG TABLET PO ONE (22:30)
[2018-03-24] MEDS ORDERED: METOPROLOL SUCCINATE 50 MG TAB.SR.24H PO ONE (22:30)
[2018-03-24 22:32] LABS: URINE CREATININE 46.3 mg/dL (15-278); URINE PROTEIN 94.2 mg/dL (<12)
[2018-03-24] MEDS ORDERED: POTASSIUM CHLORIDE 10 MEQ TABLET.SA PO ONE (23:00)
[2018-03-25 08:42] LABS: ABSOLUTE EOSINOPHILS # (AUTO) 0.1 10^3/uL (0.0-0.6); ABSOLUTE LYMPHOCYTES (AUTO) 1.4 10^3/uL (0.5-4.7); ABSOLUTE MONOCYTES (AUTO) 0.6 10^3/uL (0.1-1.4); ABSOLUTE NEUT (AUTO) 4.7 10^3/uL (1.7-8.2); BASOPHILS % (AUTO) 0.4 % (0-2); EOSINOPHILS % (AUTO) 1.5 % (0-6); HEMATOCRIT 29.6 % (36.0-47.0); HEMOGLOBIN 9.7 g/dL (12.0-15.5); LYMPHOCYTES % (AUTO) 20.3 % (13-45); MEAN CORPUSCULAR HEMOGLOBIN 31.1 pg (27.0-33.4); MEAN CORPUSCULAR HGB CONC 32.9 g/dL (32.0-36.0); MEAN CORPUSCULAR VOLUME 95 fl (80-97); MONOCYTES % (AUTO) 8.2 % (3-13); PLATELET COUNT 169 10^3/uL (150-450); RED BLOOD COUNT 3.13 10^6/uL (3.72-5.28); RED CELL DISTRIBUTION WIDTH 13.5 % (11.5-14.0); SEGMENTED NEUTROPHILS % (AUTO) 69.6 % (42-78); TOTAL CELLS COUNTED % (AUTO) 100 %; WHITE BLOOD COUNT 6.8 10^3/uL (4.0-10.5)
[2018-03-25 09:04] LABS: ALANINE AMINOTRANSFERASE 29 U/L (9-52); ALBUMIN 2.4 g/dL (3.5-5.0); ALKALINE PHOSPHATASE 69 U/L (38-126); ANION GAP 14 (5-19); ASPARTATE AMINO TRANSFERASE 21 U/L (14-36); BILIRUBIN,DIRECT 0.4 mg/dL (0.0-0.4); BILIRUBIN,TOTAL 0.4 mg/dL (0.2-1.3); BLOOD UREA NITROGEN 15 mg/dL (7-20); CALCIUM 7.9 mg/dL (8.4-10.2); CARBON DIOXIDE 23 mmol/L (22-30); CHLORIDE 106 mmol/L (98-107); GLUCOSE 61 mg/dL (75-110); SODIUM 143.2 mmol/L (137-145)
[2018-03-25] MEDS ORDERED: POTASSIUM CHLORIDE 20 MEQ/15 ML UDCUP PO ONE (11:00)
[2018-03-25] MEDS: POTASSIUM CHLORIDE 10 MEQ TABLET.SA PO SCH (11:21)
[2018-03-25] MEDS: SACUBITRIL/VALSARTAN 49 MG/51 MG TABLET PO SCH ×2 (11:25→22:46)
[2018-03-25] MEDS: METOPROLOL SUCCINATE 50 MG TAB.SR.24H PO SCH ×2 (11:26→22:46)
[2018-03-25] MEDS: GABAPENTIN 300 MG CAPSULE PO SCH ×2 (11:26→22:53)
[2018-03-25] MEDS: APIXABAN 2.5 MG TABLET PO SCH ×2 (11:52→22:53)
--- NOTE | 2018-03-25 20:25 | PDOC H&P ---
History of Present Illness Admission Date/PCP: 03/24/18 21:13 JOÃO BRAGA MD History of Present Illness: VERONA VALDEZ is a 82 year old female,She has multiple comorbid conditions including advanced dementia, chronic systolic heart failure ,adult failure to thrive, she came to the office with family for follow-up, while she was in triage at the nurses station she had episode of transient loss of consciousness associated with severe diaphoresis and elevated blood pressure, this episode lasted a few minutes, rescue squad was called to the office and she was subsequently transferred to the emergency room at [facility]. In the office she was evaluated the pupils were constricted, I was concerned she may have intracranial event, especially because she fell couple of days with facial bruises from the fall and she is also on anticoagulant Eliquis. In the emergency room she was evaluated CT head was done, this was negative for any intra-cranial pathology. She was found to have bacteriuria pyuria does suggest UTI. She has history of chronic UTI. 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.I discussed with family that it is appropriate at this time to transition care to hospice, she has progressive dementia, she is showing signs of rapid decline,Family is open to the idea, they seems to concede to the option , I explained to them what hospice means that henceforth she will no longer have any doctor visit or hospital care, her care will be coordinated by hospice agency Past Medical History Cardiac Medical History: Reports: Atrial Fibrillation, Congestive Heart Failure , Coronary Artery Disease, Myocardial Infarction, Hyperlipidema, Hypertension, Pulmonary Embolism Musculoskeltal Medical History: Reports: Arthritis Psychiatric Medical History: Reports: Dementia, Depression Hematology: Reports: Anemia Past Surgical History Past Surgical History: Reports: Cardiac Catheterization - stents, Coronary Stent , Hysterectomy, Orthopedic Surgery - right hip left tib fib and left arm, left femur, Pacemaker - 2009 Social History Smoking Status: Former Smoker Frequency of Alcohol Use: None Hx Recreational Drug Use: No Drugs: None Hx Prescription Drug Abuse: No Family History Family History: Arthritis, CAD, CVA, DM, Hyperlipidemia, Hypertension, Malignancy Parental Family History Reviewed: Yes Children Family History Reviewed: Yes Sibling(s) Family History Reviewed.: Yes Medication/Allergy Home Medications: Apixaban [Eliquis] 2.5 mg PO Q12 03/24/18 Furosemide [Lasix 20 mg Tablet] 20 mg PO BID 03/24/18 Gabapentin [Neurontin 300 mg Capsule] 300 mg PO Q12 03/24/18 Isosorbide Mononitrate [Isosorbide Mononitrate ER] 30 mg PO DAILY 03/24/18 Memantine HCl/Donepezil HCl [Namzaric 28 mg-10 mg Capsule] 1 cap PO DAILY Metoprolol Succinate [Toprol Xl 50 mg Tab.sr] 50 mg PO Q12 03/24/18 Potassium Chloride [Klor-Con 10 Meq Tablet.sa] 10 meq PO DAILY 03/24/18 Rosuvastatin Calcium [Crestor 5 mg Tablet] 5 mg PO QHS 03/24/18 Sacubitril/Valsartan [Entresto 49 mg-51 mg Tablet] 1 tab PO Q12 03/24/18 Allergies/Adverse Reactions: strawberry [Sharon] Allergy (Intermediate, Verified 01/26/18 23:50) RASH Review of Systems ROS unobtainable: Other - Dementia Physical Exam Vital Signs: Temp Pulse Resp BP Pulse Ox 99.3 F 62 16 127/57 H 93 03/25/18 15:45 03/25/18 15:45 03/25/18 15:45 03/25/18 15:45 03/25/18 15:45 Intake & Output 03/24/18 03/25/18 03/26/18 06:59 06:59 06:59 Intake Total 500 504 Balance 500 504 Weight 46 kg General appearance: PRESENT: other - Elderly thin female frail looking Eye exam: PRESENT: PERRLA Respiratory exam: PRESENT: clear to auscultation kit Cardiovascular exam: PRESENT: +S1, +S2 GI/Abdominal exam: PRESENT: soft Neurological exam: PRESENT: alert Results Laboratory Results: 03/25/18 08:17 03/25/18 08:17 03/25/18 03/25/18 03/25/18 08:17 08:17 10:58 WBC 6.8 RBC 3.13 L Hgb 9.7 L Hct 29.6 L MCV 95 MCH 31.1 MCHC 32.9 RDW 13.5 Plt Count 169 Seg Neutrophils % 69.6 Lymphocytes % 20.3 Monocytes % 8.2 Eosinophils % 1.5 Basophils % 0.4 Absolute Neutrophils 4.7 Absolute Lymphocytes 1.4 Absolute Monocytes 0.6 Absolute Eosinophils 0.1 Absolute Basophils 0.0 Sodium 143.2 Potassium 3.0 L* Chloride 106 Carbon Dioxide 23 Anion Gap 14 BUN 15 Creatinine 0.63 Est GFR ( Amer) > 60 Est GFR (Non-Af Amer) > 60 Glucose 61 L Calcium 7.9 L Total Bilirubin 0.4 AST 21 ALT 29 Alkaline Phosphatase 69 Total Protein 5.0 L Albumin 2.4 L Stool Occult Blood POSITIVE Stool for White Cells 03/25/18 10:58 WBC RBC Hgb Hct MCV MCH MCHC RDW Plt Count Seg Neutrophils % Lymphocytes % Monocytes % Eosinophils % Basophils % Absolute Neutrophils Absolute Lymphocytes Absolute Monocytes Absolute Eosinophils Absolute Basophils Sodium Potassium Chloride Carbon Dioxide Anion Gap BUN Creatinine Est GFR ( Amer) Est GFR (Non-Af Amer) Glucose Calcium Total Bilirubin AST ALT Alkaline Phosphatase Total Protein Albumin Stool Occult Blood Stool for White Cells NO WBCs SEEN 03/25/18 03/25/18 03/25/18 02:28 08:17 14:48 Troponin I 0.019 0.018 0.024 Impressions: Chest X-Ray 03/24/18 16:34 IMPRESSION: NO ACUTE RADIOGRAPHIC FINDING IN THE CHEST. Head CT 03/24/18 17:04 IMPRESSION: CHRONIC CHANGES OF ATROPHY AND MICROVASCULAR ISCHEMIA. NO ACUTE PROCESS. EVIDENCE OF ACUTE STROKE: NO. Assessment & Plan - Diagnosis (1) Encephalopathy, unspecified Is this a current diagnosis for this admission?: Yes Plan: Patient is admitted for observation, she is empirically started on IV antibiotic for UTI, consultation will be obtained from hospice (2) Urinary tract infection Qualifiers: Urinary tract infection type: site unspecified Hematuria presence: without hematuria Qualified Code(s): N39.0 - Urinary tract infection, site not specified Is this a current diagnosis for this admission?: Yes (3) AD (Alzheimer's disease) Qualifiers: Alzheimer's disease onset: late-onset Dementia behavioral disturbance: without behavioral disturbance Qualified Code(s): G30.1 - Alzheimer's disease with late onset; F02.80 - Dementia in other diseases classified elsewhere without behavioral disturbance; F02.80 - Dementia in other diseases classified elsewhere without behavioral disturbance; F02.80 - Dementia in other diseases classified elsewhere without behavioral disturbance (4) Chronic combined systolic (congestive) and diastolic (congestive) heart failure Is this a current diagnosis for this admission?: Yes
[2018-03-25] MEDS ORDERED: ATORVASTATIN CALCIUM 10 MG TABLET PO SCH (22:00)
[2018-03-25] MEDS ORDERED: CEFTRIAXONE SODIUM 1,000 MG in DEXTROSE 5%-WATER 50 ML IV SCH (22:00)
[2018-03-25] MEDS ORDERED: CEFTRIAXONE 1 GM/D5W RTU 1 GM/50 ML RTUPB IV SCH (22:00)
[2018-03-26] MEDS: POTASSIUM CHLORIDE 10 MEQ TABLET.SA PO SCH (10:31)
[2018-03-26] MEDS: GABAPENTIN 300 MG CAPSULE PO SCH (10:32)
[2018-03-26] MEDS: SACUBITRIL/VALSARTAN 49 MG/51 MG TABLET PO SCH (10:32)
[2018-03-26] MEDS: METOPROLOL SUCCINATE 50 MG TAB.SR.24H PO SCH (10:32)
[2018-03-26] MEDS: APIXABAN 2.5 MG TABLET PO SCH (10:33)
--- NOTE | 2018-03-26 11:21 | PDOC DISCHARGE SUMMARY ---
General - Admit/Disc Date/PCP Admission Date/Primary Care Provider: 03/24/18 21:13 JOÃO BRAGA MD Discharge Date: 03/26/18 - Discharge Diagnosis (1) Encephalopathy, unspecified Is this a current diagnosis for this admission?: Yes (2) Urinary tract infection Is this a current diagnosis for this admission?: Yes (3) AD (Alzheimer's disease) Is this a current diagnosis for this admission?: Yes (4) Chronic combined systolic (congestive) and diastolic (congestive) heart failure Is this a current diagnosis for this admission?: Yes - Additional Information Discharge Diet: Regular Prescriptions: Ciprofloxacin HCl [Cipro] 500 mg PO BID #14 tablet Home Medications: Apixaban [Eliquis] 2.5 mg PO Q12 03/24/18 Furosemide [Lasix 20 mg Tablet] 20 mg PO BID 03/24/18 Gabapentin [Neurontin 300 mg Capsule] 300 mg PO Q12 03/24/18 Isosorbide Mononitrate [Isosorbide Mononitrate ER] 30 mg PO DAILY 03/24/18 Memantine HCl/Donepezil HCl [Namzaric 28 mg-10 mg Capsule] 1 cap PO DAILY Metoprolol Succinate [Toprol Xl 50 mg Tab.sr] 50 mg PO Q12 03/24/18 Potassium Chloride [Klor-Con 10 Meq Tablet.sa] 10 meq PO DAILY 03/24/18 Rosuvastatin Calcium [Crestor 5 mg Tablet] 5 mg PO QHS 03/24/18 Sacubitril/Valsartan [Entresto 49 mg-51 mg Tablet] 1 tab PO Q12 03/24/18 Ciprofloxacin HCl [Cipro] 500 mg PO BID #14 tablet 03/26/18 History of Present Illness History of Present Illness: VERONA VALDEZ is a 82 year old female,She has multiple comorbid conditions including advanced dementia, chronic systolic heart failure ,adult failure to thrive, she came to the office with family for follow-up, while she was in triage at the nurses station she had episode of transient loss of consciousness associated with severe diaphoresis and elevated blood pressure, this episode lasted a few minutes, rescue squad was called to the office and she was subsequently transferred to the emergency room at [facility]. In the office she was evaluated the pupils were constricted, I was concerned she may have intracranial event, especially because she fell couple of days with facial bruises from the fall and she is also on anticoagulant Eliquis. In the emergency room she was evaluated CT head was done, this was negative for any intra-cranial pathology. She was found to have bacteriuria pyuria does suggest UTI. She has history of chronic UTI. 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 She was treated with IV Rocephin, after consultation with family it was concluded that the best plan of care for this patient at this stage of her disease is to transition care to hospice. Patient has lost desire to leave, adult failure to thrive minimal p.o. intake Physical Exam Vital Signs: Temp Pulse Resp BP Pulse Ox 97.8 F 61 20 122/43 L 92 03/26/18 07:39 03/26/18 07:39 03/26/18 07:39 03/26/18 07:39 03/26/18 07:39 Intake & Output 03/25/18 03/26/18 03/27/18 06:59 06:59 06:59 Intake Total 500 624 Output Total 3 Balance 500 621 Weight 46 kg 48.9 kg General appearance: PRESENT: no acute distress Eye exam: PRESENT: PERRLA Respiratory exam: PRESENT: clear to auscultation kit Cardiovascular exam: PRESENT: +S1, +S2 GI/Abdominal exam: PRESENT: soft Neurological exam: PRESENT: alert Results Laboratory Results: 03/25/18 08:17 03/25/18 08:17 03/25/18 03/25/18 10:58 10:58 Stool Occult Blood POSITIVE Stool for White Cells NO WBCs SEEN 03/25/18 03/25/18 03/25/18 02:28 08:17 14:48 Troponin I 0.019 0.018 0.024 Impressions: Chest X-Ray 03/24/18 16:34 IMPRESSION: NO ACUTE RADIOGRAPHIC FINDING IN THE CHEST. Head CT 03/24/18 17:04 IMPRESSION: CHRONIC CHANGES OF ATROPHY AND MICROVASCULAR ISCHEMIA. NO ACUTE PROCESS. EVIDENCE OF ACUTE STROKE: NO. Qualifiers - * PATIENT BEING DISCHARGED WITH ANY OF THE FOLLOWING DIAGNOSIS: No
[2018-03-26 12:20] VITALS: BP 99/39
== END 2018-03-26 12:54 | disposition hospice, home (50) ==
LOC: ER 16:07 → EH 21:13 → 3W 23:37
PROVIDERS: ADMIT Internal Medicine; ATTEND Internal Medicine
PROC: 4B02XTZ Measurement of Cardiac Defibrillator, External Approach (ICD-10-PCS; principal; 2018-03-24)
DX: G93.40 Encephalopathy, unspecified (principal); N39.0 Urinary tract infection, site not specified; B96.1 Klebsiella pneumoniae [K. pneumoniae] as the cause of diseases classified elsewhere; G30.1 Alzheimer's disease with late onset; F02.80 Dementia in other diseases classified elsewhere, unspecified severity, without behavioral disturbance, psychotic disturbance, mood disturbance, and anxiety; I11.0 Hypertensive heart disease with heart failure; I50.42 Chronic combined systolic (congestive) and diastolic (congestive) heart failure; I48.91 Unspecified atrial fibrillation; I25.10 Atherosclerotic heart disease of native coronary artery without angina pectoris; R62.7 Adult failure to thrive; R55 Syncope and collapse; I25.2 Old myocardial infarction; K55.20 Angiodysplasia of colon without hemorrhage; R29.898 Other symptoms and signs involving the musculoskeletal system; Z82.49 Family history of ischemic heart disease and other diseases of the circulatory system; Z79.02 Long term (current) use of antithrombotics/antiplatelets; Z95.810 Presence of automatic (implantable) cardiac defibrillator; Z86.711 Personal history of pulmonary embolism; Z95.5 Presence of coronary angioplasty implant and graft; Z45.02 Encounter for adjustment and management of automatic implantable cardiac defibrillator; Z79.899 Other long term (current) drug therapy; Z91.81 History of falling; Z87.440 Personal history of urinary (tract) infections; Z87.891 Personal history of nicotine dependence; Z90.710 Acquired absence of both cervix and uterus; Z82.3 Family history of stroke
CPT/HCPCS: 93005; 99285; 96361; 51701; 96365; 86900; 86901; 36415 ×2; 87040; 87045; 87086; 89055; 87205; 82553; 86850; 82550; 84156; 82570; 85025 ×2; 85610; 82272 ×2; 87088; 80053 ×2; 81001; 84484 ×2; 87186; 87493; 83605; 71045; 70450; 93010; 93296; G0378 ×4; A9270 ×9; J0696 ×2; J7030; J7040